=== PATIENT | female | born 1955 | race Caucasian/White ===

== ENCOUNTER 2017-05-12 09:30 | Outpatient (RCR) | payer OTHER, SELFPAY | END 2017-05-17 23:59 | LOC: NS 09:30 | PROVIDERS: Family Provider Family Medicine; PCP Family Medicine | DX: R63.5 Abnormal weight gain (principal); Z71.3 Dietary counseling and surveillance | CPT/HCPCS: 97803 ==

== ENCOUNTER 2017-05-26 10:36 | Outpatient (RCR) | payer OTHER, SELFPAY | END 2017-05-26 10:37 | disposition home or self-care (01) | LOC: NS 10:36 | PROVIDERS: Family Provider Family Medicine; PCP Family Medicine | DX: R63.5 Abnormal weight gain (principal); Z71.3 Dietary counseling and surveillance | CPT/HCPCS: 97803 ==

== ENCOUNTER 2017-09-16 07:23 | Emergency (ER) | payer OTHER, SELFPAY ==
[2017-09-16 07:24] VITALS: BP 140/101; PULSE 117; RESP 20; TEMP 35.8; O2SAT 100; BMI 30.3
[2017-09-16 07:30] VITALS: BP 141/102; PULSE 116; O2SAT 98
[2017-09-16 07:36] VITALS: O2SAT 99
--- NOTE | 2017-09-16 07:53 | RAD_ITS ---
STUDY: X-RAY CHEST REASON FOR EXAM: Female, 62 years old. Shortness of breath. Dyspnea. TECHNIQUE: Single AP portable view of the chest. COMPARISON: None. FINDINGS: There is hyperinflation of the lungs consistent with chronic obstructive lung disease (COPD). There is right basilar mild chronic interstitial thickening. There is no demonstrated pleural abnormality. Normal size heart. Normal mediastinum and nathan. Normal visualized pulmonary arteries. There is atherosclerotic tortuosity of the aortic arch and descending thoracic aorta. Normal visualized ribs, clavicles, and shoulders. There is no demonstrated abnormality of the visualized soft tissue structures of the upper abdomen. RAD/Chest 1 View (Portable) IMPRESSION: COPD changes. Right basilar mild chronic appearing interstitial thickening/infiltrates. Electronically Signed: Joey Jackson MD at 8:21 EDT Tel , Service support ,
[2017-09-16] MEDS: MethylPREDNISolone 125 MG/2 ML Vial IV (08:09)
[2017-09-16] MEDS: 0.9% Normal Saline 1,000 ML 150 ML IV (08:09)
--- NOTE | 2017-09-16 08:13 | ED.DCSUM_ITS ---
- ER Visit Summary Date of Service: 09/16/17 Chief Complaint: Short of breath, sore throat History of Present Illness: The patient is a 62 F who complains of sore throat for the past 3 or 4 days. She has had a lot of drainage in her throat. She is complaining of shortness of breath and cough as well. She does have increased pain when drinking. Patient states she drove herself to urgent care this morning but they were not open so she came to the emergency room. She has not noted fever or chills. Past history significant for hypertension. She is a smoker. Physical Examination: Blood pressure is 141/102, temperature 96.5, heart rate 116, respiratory rate 20, pulse ox 98% on room air. Patient sitting upright in bed. She speaking full sentences. She does have frequent moist cough and is bringing up thick sputum. Head and neck examination reveals TMs to be clear bilaterally. She has mild posterior pharyngeal drainage. Uvula is midline and not enlarged. She does have large bilateral cervical lymphadenopathy. Heart is regular rate and rhythm. Lung sounds are grossly clear. Abdomen is soft nontender. Skin examination reveals no rash or lesions. Test Results: CBC and chemistry studies are unremarkable. Portable chest x-ray shows COPD changes with right basilar chronic interstitial thickening. Emergency Department Course and Treatment: Patient was given a dose IV Solu- Medrol. On repeat evaluation she does report improvement in her symptoms and was able to lie back in the bed. She was then sent for a CT of the neck with IV contrast. This reveals mild diffuse enlargement of the hypopharynx without focal fluid collection. There is mild lymphadenopathy. Differential includes infectious, inflammatory, neoplastic process. On repeat examination patient states she feels much improved. She is able tolerate p.o. fluids. She is able to lean back in the bed without difficulty. She be given a prednisone taper for home along with Augmentin. She is encouraged to return immediately should any worsening of her symptoms. Treatment Plan: [] Disposition: Discharge Impression: Pharyngitis This note was generated with [employer] dictation software. It may contain incorrect words, spelling, and punctuation that were not noted in review of the chart prior to signing ED Disposition - Plan for ED Patient: Chief Complaint: Shortness of Breath Referrals: Nikhil Sullivan MD [Primary Care Provider] -
[2017-09-16 08:23] LABS: Absolute Lymphocyte Count 1.32 X10^3/ul (0.83-4.51); Absolute Neutrophil Count 5.1 X10^3/uL (2.0-7.7); Basophil# 0.01 X10^3/uL; Basophil% 0.1 % (0-1); Eosinophil# 0.06 X10^3/uL; Eosinophils% 0.9 % (0-5); Hemoglobin 12.7 g/dl (12.0-15.0); Lymphocyte # 1.32 X10^3/ul (4.0); Lymphocyte % 19.2 % (19-41); Mean Corp Hgb Conc 33.4 g/gl (32-36); Mean Corpuscular Hgb 30.1 pg (27.0-32.0); Mean Platelet Vol. 10.7 fl (6.2-12.0); Monocyte# 0.41 X10^3/uL; Neutrophil # 5.08 X10^3/uL (2.7-7.7); Neutrophil % 73.8 % (47-70); Platelet Count 171 K/mm3 (150-450); RBC Distribution Width CV 12.9 % (11.6-14.6); RBC Distribution Width SD 42.5 fl (35.1-43.9); Red Blood Count 4.22 M/mm3 (4.2-5.4); White Blood Count 6.9 K/mm3 (4.4-11.0)
[2017-09-16 08:24] LABS: POSITIVE COUNT NO; POSITIVE DIFFERENTIAL NO; POSITIVE MORPHOLOGY NO
[2017-09-16 08:36] LABS: Anion Gap 6 (5-15); BUN 9 mg/dL (7-18); BUN/Creat Ratio 13.4 RATIO (10-20); Calcium,Total 9.6 mg/dL (8.5-10.1); Chloride 108 mmol/L (98-107); Creatinine, Serum 0.67 mg/dL (0.55-1.02); EST Glomerular Filtration Rate 95 mL/min (>60); Est Glom Filt Rate - Afr Amer 115 mL/min (>60); Estimated Creatinine Clearance 90.07 ml/min; Glucose 102 mg/dL (74-106); Potassium 4.1 mmol/L (3.5-5.1); Sodium Level 140 mmol/L (136-145)
--- NOTE | 2017-09-16 09:27 | CT_ITS ---
STUDY: CT SOFT TISSUE NECK WITH CONTRAST REASON FOR EXAM: Female, 62 years old. DIFFICULTY SWALLOWING, SOB, SORE THROAT, HX-HTN. RADIATION DOSAGE (If Supplied By Facility): CTDIvol = ( 19.5 ) mGy, DLP = ( 613.5 ) mGycm TECHNIQUE: The patient was scanned in a multi-detector CT scanner. High resolution transaxial imaging was performed following intravenous administration of 100 ml of Isovue 300 contrast material. Sagittal and coronal images were reconstructed. Individualized dose optimization techniques were used for this CT. COMPARISON: None. FINDINGS: Normal bilateral parotid glands. Normal bilateral it software developer spaces. Normal bilateral parapharyngeal spaces. Normal bilateral carotid spaces. Normal bilateral sublingual and submandibular glands and spaces. Normal visualized nasopharynx. Normal retropharyngeal space. Normal perivertebral space. Normal visualized bilateral faucial tonsils. The visualized tongue, tongue base and oropharynx are normal. There is enlarged bilateral cervical lymph nodes most prominent at the right jugulodigastric region measuring up to 2.1 cm. There is no demonstrated solid or cystic mass lesion. There is no abnormal contrast enhancement. Normal epiglottis, bilateral vallecula. There is mild mild diffuse enlargement of the hypopharynx with enlargement of the aryepiglottic folds and obliteration of the left piriform sinus. The pre-epiglottic and paraglottic adipose spaces are normal. Normal vocal cords, and arytenoid-cricoid articulations. Normal subglottic trachea. Normal bilateral lobes of the thyroid gland. Normal visualized pulmonary apices. Normal visualized paranasal sinuses. Normal visualized cervical spine. CT/Soft Tissue Neck WITH Contrast IMPRESSION: Mild diffuse enlargement of the hypopharynx. No fluid collections. Mild lymphadenopathy. Differential considerations are infectious, inflammatory and neoplastic disease. Electronically Signed: Andre Alexander MD at 10:25 EDT Tel , Service support ,
[2017-09-16 09:50] VITALS: BP 159/95; PULSE 91; RESP 18; O2SAT 98
--- NOTE | 2017-09-16 10:43 | ED.DEP ---
ED Disposition - Plan for ED Patient: Disposition: Home or Assisted Living Chief Complaint: Shortness of Breath Instructions: Self-Care for Sore Throats Prescriptions: Amox/Clavulanate Tablet [Augmentin Tablet] 875 mg PO Q12H #20 tablet Prednisone 10 mg PO DAILY #63 tablet Referrals: Nikhil Sullivan MD [Primary Care Provider] - 1 Week Guilherme Ivey MD [STAFF PHYSICIAN] - As Needed
[2017-09-16 10:58] VITALS: BP 156/79; PULSE 83; RESP 19; O2SAT 99
== END 2017-09-16 10:58 | disposition home or self-care (01) ==
PROVIDERS: Emergency Provider Emergency Medicine; Family Provider Family Medicine; PCP Family Medicine
DX: J02.9 Acute pharyngitis, unspecified (principal); I10 Essential (primary) hypertension; F17.200 Nicotine dependence, unspecified, uncomplicated
CPT/HCPCS: 70491; 71045; 80048; 85025; 96360; 96361; 99284; J7030; Q9967

== ENCOUNTER 2020-12-24 08:48 | Emergency (ER) | payer OTHER, SELFPAY ==
[2020-12-24 08:50] VITALS: BP 140/88; PULSE 62; RESP 18; TEMP 36.6; O2SAT 98; BMI 31.8
--- NOTE | 2020-12-24 09:30 | EDS_ITS ---
HPI History of Present Illness Chief Complaint: Dizziness Informant: patient and EMS Narrative Narrative: 65-year-old female presenting via EMS with a chief complaint of dizziness. Patient states that as soon as she got out of bed this morning she felt that the room was spinning. She states that it made her very nauseous and she was having vomiting. The room spinning sensation get worse that she would move her head from side to side. 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 She got to work and her blood pressure was elevated and a coworker called EMS. Patient states that since she has been in the emergency room she is starting to feel better. She states that the dizziness is no longer comes when she turns her head. The nausea is better. She denies any headache. She did note a pain in her neck. This morning. She has had vertigo in the past but does not recall it being this bad. PFSH [facility] Medical History Hypertension Home Medications diazepam 5 mg PO Q6H PRN #10 tab 12/24/20 [Rx Last Taken Unknown] hydrochlorothiazide 25 mg PO DAILY 12/24/20 [History Last Taken Unknown] lisinopril [Prinivil] 10 mg PO DAILY 12/24/20 [History Last Taken Unknown] ondansetron 4 mg PO Q6H PRN PRN #15 tab 12/24/20 [Rx Last Taken Unknown] Allergy/AdvReac Type Severity Reaction Status Date / Time sulfamethoxazole Allergy Unknown Verified 12/24/20 08:52 [From Bactrim] trimethoprim [From Bactrim] Allergy Unknown Verified 12/24/20 08:52 Social History (Updated 12/24/20 @ 09:[address] Jim Arevalo, DO) Smoking Status: Current every day smoker tobacco type: cigarettes substance use type: does not use ROS ROS ED Constitutional Constitutional ED: Denies chills or weight loss Eyes Eyes: Denies change in vision or diplopia ENT ENT ED: Denies ear pain, rhinorrhea or sore throat Cardiovascular Cardiovascular: Denies chest pain, orthopnea, palpitations or racing heartbeat Respiratory/Chest Respiratory/Chest: Denies cough, dyspnea or orthopnea Gastrointestinal Gastrointestinal: Reports nausea and vomiting; Denies abdominal pain or diarrhea Genitourinary Genitourinary ED: Denies dysuria, hematuria or urinary frequency Musculoskeletal Musculoskeletal: Reports neck pain; Denies arthralgias or myalgias Integumentary Denies abscess or rash Neurologic Neurologic: Reports other Details: Dizziness ; Denies headache(s) or weakness Psychiatric Psychiatric: Denies anxiety, depression, suicidal ideation or suicidal thoughts Endocrine Endocrinology: Denies polydipsia, polyphagia or polyuria Allergic/Immunologic Allergic/Immunologic ED: Denies mouth swelling, tongue swelling or urticaria EXAM Physical Exam Narrative Exam Narrative: Patient lying in darkened room with a towel on eyes. Const Vital Signs: 12/24/20 08:50 12/24/20 09:47 Temperature 97.8 F Temperature Source Temporal Pulse Rate 62 Respiratory Rate 18 Respiratory Effort Normal Non-Labored Respiratory Pattern Normal Blood Pressure 140/88 H Blood Pressure Mean 105 Pulse Ox 98 Oxygen Delivery Method Room Air Positive well nourished, well developed and obese General Appearance ED: well developed Nutritional Appearance: obese HEENT Reports normocephalic, head/scalp atraumatic and moist mucous membranes Eyes PERRL and EOMs intact bilaterally Eyes Narrative: No nystagmus is appreciated Neck no lymphadenopathy, supple and no JVD Resp normal respiratory effort and clear to auscultation bilaterally Cardio regular rate, regular rhythm and no murmurs GI normal to inspection, nondistended, normoactive bowel sounds and non-tender Palpation: soft Back/Spine no CVA tenderness and normal ROM Extremity normal to inspection General Extremety ED: Negative for edema General Extremity: Negative for edema Neuro oriented x3 and CN's II-XII intact bilaterally Neuro Narrative: Negative Yeison-Hallpike Sensorium / Orientation: alert Motor Exam: strength 5/5 throughout Psych mental status grossly normal Mood & Affect: Negative for depressed or tearful Skin no rashes or lesions noted and no wounds MDM MDM MDM Narrative Medical decision making narrative: Basic labs obtained showed a glucose of 107. Noted white count 4.1. Patient received Valium and Zofran. Repeat examination shows her to be sitting upright conversing with her . When to give her instructions on repositioning techniques which she is used in the past. Also write for a small amount of Valium and Zofran at home. Lab Data Attestation: I reviewed the patient's lab results. Labs: Laboratory Results - last 24 hr 12/24/20 12/24/20 09:50 09:50 WBC 4.1 L RBC 4.30 Hgb 13.1 Hct 39.3 MCV 91.4 MCH 30.5 MCHC 33.3 RDW Std Deviation 42.1 RDW Coeff of Arden 12.6 Plt Count 157 MPV 11.1 Immature Gran % (Auto) 0.200 Neut % (Auto) 71.2 H Lymph % (Auto) 20.5 Centre % (Auto) 6.2 Eos % (Auto) 1.7 Baso % (Auto) 0.2 Absolute Neuts (auto) 2.9 Absolute Lymphs (auto) 0.83 Nucleated RBC % 0 Sodium 136 Potassium 4.1 Chloride 103 Carbon Dioxide 28.0 Anion Gap 5 BUN 18 Creatinine 0.66 Estim Creat Clear Calc 88.01 Est GFR (MDRD) Af Amer 116 Est GFR (MDRD) Non-Af 96 BUN/Creatinine Ratio 27.3 H Glucose 107 H Calcium 9.3 Discharge Plan Triage Chief Complaint: Dizziness ED Provider: Jim Arevalo Dx/Rx/DC Orders Clinical Impression: Vertigo Instructions: ED BPV Vertigo Prescriptions: New ondansetron [ondansetron] 4 MG tablet 4 mg PO Q6H PRN PRN (Reason: Nausea) Qty: 15 RF: 0 diazepam [diazepam] 5 MG tablet 5 mg PO Q6H PRN (Reason: vertigo) Qty: 10 RF: 0 No Action lisinopril [Prinivil] 10 mg Tablet 10 mg PO DAILY RF: 0 hydrochlorothiazide 25 mg Tablet 25 mg PO DAILY RF: 0 Primary Care Provider: Tres Mann Referrals: Tres Mann MD [Primary Care Provider] - As Needed Tres Narayan MD [STAFF PHYSICIAN] - As Needed (for ENT) Disposition Disposition: Home, Self Care
[2020-12-24] MEDS: diazePAM 5 MG Tablet PO (09:44)
[2020-12-24] MEDS: Ondansetron 4 MG/2 ML Vial IV (09:45)
[2020-12-24] MEDS: 0.9% Normal Saline 1,000 ML 1000 ML IV (09:45)
[2020-12-24 09:58] LABS: Absolute Lymphocyte Count 0.83 X10^3/uL (0.83-4.51); Absolute Neutrophil Count 2.9 X10^3/uL (2.0-7.7); Basophil# 0.01 X10^3/uL; Basophil% 0.2 % (0-1); Eosinophil# 0.07 X10^3/uL; Eosinophils% 1.7 % (0-5); Hematocrit 39.3 % (37-47); Hemoglobin 13.1 g/dL (12.0-15.0); Lymphocyte # 0.83 X10^3/ul (0.83-4.51); Lymphocyte % 20.5 % (19-41); Mean Corp Hgb Conc 33.3 g/dL (32-36); Mean Corpuscular Hgb 30.5 pg (27.0-32.0); Mean Corpuscular Volume 91.4 fL (81-99); Mean Platelet Vol. 11.1 fl (6.2-12.0); Monocyte# 0.25 X10^3/uL; Monocyte% 6.2 % (0-10); NRBC Flagged by Analyzer 0 % (0-5); Neutrophil # 2.88 X10^3/uL (2.7-7.7); Neutrophil % 71.2 % (47-70); Platelet Count 157 K/mm3 (150-450); RBC Distribution Width CV 12.6 % (11.6-14.6); RBC Distribution Width SD 42.1 fl (35.1-43.9); White Blood Count 4.1 K/mm3 (4.4-11.0)
[2020-12-24 10:16] LABS: Anion Gap 5 (5-15); BUN 18 mg/dL (7-18); BUN/Creat Ratio 27.3 RATIO (10-20); Calcium,Total 9.3 mg/dL (8.5-10.1); Chloride 103 mmol/L (98-107); Creatinine, Serum 0.66 mg/dL (0.55-1.02); EST Glomerular Filtration Rate 96 mL/min (>60); Est Glom Filt Rate - Afr Amer 116 mL/min (>60); Estimated Creatinine Clearance 88.01 ml/min; Glucose 107 mg/dL (74-106); Potassium 4.1 mmol/L (3.5-5.1); Sodium Level 136 mmol/L (136-145)
[2020-12-24 10:50] VITALS: BP 141/92; PULSE 76; RESP 15; O2SAT 97
[2020-12-24 11:17] VITALS: BP 136/81; PULSE 65; RESP 16; O2SAT 98
== END 2020-12-24 11:18 | disposition home or self-care (01) ==
PROVIDERS: Emergency Provider Emergency Medicine; PCP Family Medicine
DX: R42 Dizziness and giddiness (principal); R11.2 Nausea with vomiting, unspecified; M54.2 Cervicalgia; I10 Essential (primary) hypertension; E66.9 Obesity, unspecified; F17.210 Nicotine dependence, cigarettes, uncomplicated; Z79.899 Other long term (current) drug therapy
CPT/HCPCS: 80048; 85025; 96361; 96374; 99285; J7030; A4216; J2405

== ENCOUNTER → 2024-05-01 | Outpatient (CLI) | payer MEDICARE, SELFPAY ==
--- NOTE | 2024-05-01 06:56 | ECHOD_ITS ---
Reason For Study Reason For Study: Dyspnea/SOB Procedure This was a 2D Doppler, Color Flow transthoracic echocardiogram. Exam performed in department. Left Ventricle Normal LV size. Mild concentric left ventricular hypertrophy. The left ventricular ejection fraction is 65 %. Stage 1 diastolic dysfunction. Right Ventricle Normal right ventricle. Atria The left and right atria are normal. Bubble contrast study is negative for PFO/ASD. Mitral Valve Mild (1+) mitral valve insufficiency. Tricuspid Valve Trivial tricuspid valve insufficiency. Normal pulmonary artery pressure. Aortic Valve Trisinus/trileaflet aortic valve. Trivial aortic valve insufficiency. Pulmonic Valve The pulmonic valve is not well visualized. Great Vessels Moderately dilated aortic root (4.5 cm). Pericardium/Pleural No pericardial effusion. Medication 22 gauge I.V. with prn adaptor inserted into right arm. Performed a rapid injection of agitated mix of 9 cc saline and 1cc air to assess for atrial septal defect. MMode/2D Measurements & Calculations LVIDd: 4.4 cm IVSd: 1.2 cm LVOT diam: 2.0 cm LVIDs: 3.1 cm LVPWd: 0.89 cm RVDd: 3.2 cm FS: 29.0 % LVOT area: 3.0 cm2 Ao root diam: 4.5 cm asc Aorta Diam: 4.5 cm LAV(MOD- bp): 38.4 ml LAV(MOD- bp) Indexed: 18.6 ml/m2 LAV(MOD- sp2): 40.2 ml LAV(MOD- sp4): 35.1 ml SV(MOD-sp4): 61.3 ml SV(sp4- el): 65.0 ml LVAd ap4: 29.2 cm2 LVLd ap4: 7.7 cm SI(MOD-sp4): 29.8 ml/m2 EDV(MOD-sp4): 90.6 ml EDV(sp4-el): 94.7 ml LVAs ap4: 14.5 cm2 LVLs ap4: 6.0 cm ESV(MOD-sp4): 29.3 ml ESV(sp4-el): 29.7 ml EF(MOD-sp4): 67.7 % EF(sp4-el): 68.7 % Ao sinus diam: 3.[address] Junction: 3.5 cm LA A4 area: 14.0 cm2 LA dimension(2D): 3.3 cm TAPSE: 1.8 cm RA A4 area: 14.4 cm2 Time Measurements MV dec time: 0.26 sec Doppler Measurements & Calculations MV E max agustin: 61.4 cm/sec Lat Peak E' Agustin: 10.1 cm/sec Med Peak E' Agustin: 7.7 cm/sec MV A max agustin: 92.0 cm/sec E/E' lat: 6.1 E/E' med: 7.9 MV E/A: 0.67 MV V2 max: 98.0 cm/sec MV P1/2t max agustin: 77.6 cm/sec Ao V2 max: 143.7 cm/sec MV max P.8 mmHg MV P1/2t: 89.0 msec Ao max P.3 mmHg MV V2 mean: 55.8 cm/sec MV dec slope: 255.4 cm/sec2 Ao V2 mean: 95.6 cm/sec MV mean P.4 mmHg Ao mean P.2 mmHg MV V2 VTI: 27.3 cm MVA(P1/2t): 2.5 cm2 Ao V2 VTI: 31.6 cm MVA(VTI): 2.8 cm2 AV (velocity ratio): 0.80 KIMBERLY(I,D): 2.4 cm2 KIMBERLY(V,D): 2.5 cm2 LV V1 max: 119.1 cm/sec MR max agustin: 570.7 cm/sec SV(LVOT): 75.6 ml LV V1 max P.7 mmHg MR max P.3 mmHg LV V1 mean P.1 mmHg LV V1 mean: 80.1 cm/sec LV V1 VTI: 25.3 cm PA V2 max: 88.7 cm/sec TR max agustin: 211.6 cm/sec TR max P.9 mmHg ECHO/Echo Complete Interpretation Summary Mild concentric left ventricular hypertrophy. The left ventricular ejection fraction is 65 %. Stage 1 diastolic dysfunction. Mild (1+) mitral valve insufficiency. Moderately dilated aortic root (4.5 cm) Bubble contrast study is negative for PFO/ASD. Ordering Physician: Surinder Monroy Referring Physician: Surinder Monroy Performed By: Orestes Van [facility]
--- NOTE | 2024-05-01 12:29 | STRESSREP_ITS ---
Stress Test Report Date: 05/01/2024 Procedure: Exercise tolerance test/imaging study Indications: Dyspnea on exertion Consent: Per the patient Procedure: The patient exercised on a Collin protocol for 5 minutes and 11 seconds achieving a peak heart rate of 146 bpm (94% predicted maximal heart rate) with a peak blood pressure 150/90 mmHg and a peak MET capacity of 7.0 METs. The baseline ECG demonstrated sinus rhythm. The peak exercise ECG demonstrated sinus tachycardia with no ischemic changes. Motion artifact reduces sensitivity. Occasional PVCs noted in recovery. The functional capacity was considered average. There was no complaint of chest discomfort during exercise or recovery. The examination was discontinued secondary to target heart rate being achieved and dyspnea. The patient was injected with 14.0 mCi of technetium 99m Cardiolite and subsequently rest SPECT Cardiolite nuclear imaging was obtained in the horizontal long, vertical long, and short axis views. Post-exercise, the patient was injected with 42.3 mCi of technetium 99m Cardiolite and subsequently stress SPECT Cardiolite nuclear imaging was obtained in the horizontal long, vertical long, and short axis views. A gated Cardiolite study at peak stress was obtained. Rest and stress SPECT Cardiolite nuclear imaging status post realignment, normalization, and attenuation correction, demonstrates the appearance of relative uniform tracer uptake and myocardial perfusion appearing within normal limits. There is end systolic thickening and brightening. The gated Cardiolite study demonstrates myocardial thickening and inward wall motion. The reported LVEF is 79%. Impression: 1. Technically adequate (percent predicted maximal heart rate greater than 85%) exercise tolerance test 2. Peak exercise ECG with no ischemic changes. 3. Occasional PVC noted in recovery 4. Rest and stress SPECT Cardiolite nuclear imaging demonstrate relative uniform tracer uptake and myocardial perfusion appearing within normal limits. 5. The gated Cardiolite study reports an LVEF of 79%. This note was generated with [employer] software. It may contain incorrect words, spelling, and punctuation that were not noted in checking the note before signing.
== END | disposition home or self-care (01) ==
PROVIDERS: PCP Family Medicine; Referring Provider Internal Medicine Cardiovascular Disease; Visit Provider Internal Medicine Cardiovascular Disease
DX: R06.09 Other forms of dyspnea (principal)
CPT/HCPCS: 78452; 93017; 93306; A9500; A4216

== ENCOUNTER → 2024-09-19 | Outpatient (CLI) | payer MEDICARE, SELFPAY ==
--- NOTE | 2024-09-19 13:30 | CT_ITS ---
PROCEDURE: CTA CHEST W/WO CONTRAST 09/19/2024 REASON FOR EXAM: THORACIC AORTIC ANEURYSM TECHNIQUE: CTA CHEST W/WO CONTRAST Multiplanar Sagittal and Coronal images were obtained. CONTRAST: Isovue 370 VOLUME: 100 mL One or more dose reduction techniques were used (e.g., Automated exposure control, adjustment of the mA and/or kV according to patient size, use of iterative reconstruction technique). RADIATION DOSE SUMMARY: CTDlvol: 21 mGy DLP: 519 mGycm COMPARISON: No FINDINGS: Unremarkable base of neck and axilla. Thoracic spine scoliosis and degeneration. Normal esophagus. Normal heart size. Moderate aortic tortuosity. Three-vessel arch. Minimal calcified plaque. The ascending aorta is dilated at 4.2 x 4.3 cm maximum cross-section. The thoracic aorta is otherwise nondilated. No central pulmonary embolism. No acute chest wall findings. No acute upper abdominal findings. Central airways are patent. Well inflated lungs. No consolidation, effusion, or pneumothorax. On the left, no suspicious nodules. On the right, series 2 image 96, 6 mm pleural-based noncalcified lower lobe nodular density. CT/CTA Chest W/WO Contrast IMPRESSION: Dilated ascending aorta, 4.3 cm maximum cross-section. 6 mm noncalcified right lower lobe nodule, not highly suspicious. If this is a high-risk patient, recommend six-month follow up imaging with low-dose chest CT. Reading Location: [place] [id number]
--- OUTSIDE RECORDS SUMMARY | 2024-09-19 22:57 | XMS RPT_ITS | CCD ---
Author Organization [facility] Care Team Providers Care On Air Personality Name Role Phone Carrington Mann MD Primary Care Provider Carrington Mann MD Primary Care Provider Podlogar TELECOMMUNICATIONS REPAIRER.DESIREE, Мария Unavailable Nate Cavazos MD Unavailable Rocío TELECOMMUNICATIONS REPAIRER.Olga RAMÍREZ Unavailable CARRINGTON MANN Referring Unavailab CARRINGTON Beltre Primary Care Unavailab CARRINGTON Beltre Referring Unavailab CARRINGTON Beltre Primary Care Unavailab CARRINGTON Beltre Primary Care Unavailab CARRINGTON Beltre Attending Unavailab CARRINGTON Beltre Attending Unavailab CARRINGTON Beltre Primary Care Unavailab CARRINGTON Beltre Attending Unavailab CARRINGTON Beltre Primary Care Unavailab CARRINGTON Beltre Referring Unavailab CARRINGTON Beltre Primary Care Unavailab CARRINGTON Beltre Primary Care Unavailab jonathan DIXON, BELL Referring Unavailable CARRINGTON MANN Referring Unavailab CARRINGTON Beltre Primary Care Unavailab CARRINGTON Beltre Primary Care Unavailab jonathan DIXON, BELL Referring Unavailable CARRINGTON MANN Referring Unavailab le CARRINGTON MANN Primary Care Unavailab le CARRINGTON MANN Referring Unavailab le CARRINGTON MANN Primary Care Unavailab le DESTINY, BELL Attending Unavailable CARRINGTON MANN Primary Care Unavailab CARRINGTON Beltre Attending Unavailab jonathan Mann MD, Dr. Joshua Primary Care Provider Dr. Tres Mann MD Referring Provider Raul SYSTEM DESIGNER-CGeri Attending Provider [phone] Tres Mann Primary Care Unavailable Porfirio, Surinder Consulting Unavailable Porfirio, Surinder Attending Unavailable Porfirio, Surinder Referring Unavailable Kwaku Manne Primary Care Unavailable Porfirio, Surinder Attending Unavailable Porfirio, Surinder Referring Unavailable Kwaku Manne Primary Care Unavailable Renata SYSTEM DESIGNER, Guanaco Grimaldo Attending Unavailable Renata SYSTEM DESIGNER, Guanaco Grimaldo Referring Unavailable Geri Carter NP Attending Unavailable Tres Mann Primary Care Unavailable Tres Mann Referring Unavailable Tres Mann Primary Care Unavailable Tres Mann Referring Unavailable Porfirio, Surinder Attending Unavailable Allergies Allergy Classification Reported Allergen(s) Allergy Type Date of Onset Reaction(s) Facility (20 sources) cashew nut allergenic extract; Translations: [CASHEW NUT] Drug Allergy 08-22-[address] [facility] (20 sources) Penicillins; Translations: [PENICILLINS] Propensity to adverse reactions 03-16-[address] [facility] Work Phone: (20 sources) predniSONE; Translations: [PREDNISONE] Drug Allergy 01-19-20 [address] [facility] Work Phone: (20 sources) Sulfamethoxazole / Trimethoprim; Translations: [SULFAMETHOXAZOLE-TR IMETHOPRIM] Drug Allergy 01-19-20 [address] [facility] Work Phone: (18 sources) atorvastatin; Translations: [ATORVASTATIN] Drug Allergy 01-11-20 [address] [facility] Work Phone: (1 source) Penicillins Propensity to adverse reactions 03-16-[address] [facility] Work Phone: (1 source) Penicillins Propensity to adverse reactions 09-17-19 25 Diarrhea [facility] (1 source) Sulfamethoxazole Drug Allergy 09-17-19 25 Unknown [facility] (1 source) Trimethoprim Drug Allergy 09-17-19 25 Unknown [facility] (1 source) atorvastatin Drug Allergy 09-17-19 25 [facility] (1 source) cashew nut allergenic extract Drug Allergy 09-17-19 [facility] (1 source) Penicillins Drug allergy (disorder) 09-17-19 [facility] (1 source) predniSONE Drug Allergy 09-17-19 [facility] (1 source) Sulfamethoxazole Drug Allergy 09-17-19 [facility] (1 source) Trimethoprim Drug Allergy 09-17-19 [facility] Medications Current Medications Medication Drug Class(es) Dates Sig (Normalized) Sig (Original) aspirin 81 mg delayed release oral tablet (2 sources) Platelet Aggregation Inhibitor, Nonsteroidal Anti-inflammator y Drug Start: 5 take 1 tablet by mouth once daily Aspirin 81 mg tablet,delayed release (DR/EC) Active 81 mg PO daily 90 April 15, 2024 1:00am hydroCHLOROthiazide 25 mg oral tablet (20 sources) Thiazide Diuretic Start: End: 5 take 1 tablet by mouth once daily hydroCHLOROthiazide 25 mg tablet Indications: Essential hypertension Take 1 tablet by mouth once daily. 90 tablet 1 07/12/2024 01/08/2025 Active Start: 12-24-2020 End: 04-12-2022 take 1 tablet by mouth once daily hydroCHLOROthiazide (HYDRODIURIL, ESIDRIX) 25 mg tablet Indications: Essential hypertension Take 1 tablet by mouth once daily. 90 tablet 1 10/14/2021 04/12/2022 Active Comment on above: Take 1 tablet by hannah th once daily. lisinopril 10 mg oral tablet (20 sources) Angiotensin Converting Enzyme Inhibitor Start: End: 5 take 1 tablet by mouth once daily lisinopril (ZESTRIL) 10 mg tablet Indications: Essential hypertension Take 1 tablet by mouth once daily. 90 tablet 1 07/12/2024 01/08/2025 Active Start: 12-24-2020 End: 04-12-2022 take 1 tablet by mouth once daily lisinopril (ZESTRIL, PRINIVIL) 10 mg tablet Indications: Essential hypertension Take 1 tablet by mouth once daily. 90 tablet 1 10/14/2021 04/12/2022 Active Comment on above: Take 1 tablet by hannah th once daily. 24 hr metoprolol succinate 25 mg extended release oral tablet (2 sources) beta-Adrenergic Kirt Start: 5 take 1 tablet by mouth once daily Metoprolol Succinate 25 mg tablet extended release 24 hr Active 25 mg PO daily 90 3 April 15, 2024 1:00am predniSONE 10 mg oral tablet (1 source) Start: 4 End: predniSONE (DELTASONE) 10 mg tablet Take 4 tabs daily x5 days, then 2 tabs daily for 5 days, then 1 tab daily for 5 days. 35 tablet 11/06/2023 11/21/2023 Active rosuvastatin calcium 10 mg oral tablet (4 sources) HMG-CoA Reductase Inhibitor Start: 5 End: 5 take 1 tablet by mouth once daily Rosuvastatin (Crestor) 10 mg tablet Active 10 mg PO daily September 16, 2024 12:00am Completed/Discontinued Medications Medication Drug Class(es) Dates Sig (Normalized) Sig (Original) atorvastatin 20 mg oral tablet (12 sources) HMG-CoA Reductase Inhibitor Start: 10-19-2021 End: 01-11-2024 take 1 tablet by mouth once daily at bedtime for hyperlipidemia atorvastatin (LIPITOR) 20 mg tablet Indications: Hyperlipidemia, mixed Take 1 tablet by mouth daily at bedtime. For cholesterol. 90 tablet 1 12/28/2022 01/11/2024 Discontinued (Course of therapy completed) Comment on above: Take 1 tablet by hannah th daily at bedtime. For cholesterol. diazePAM 5 mg oral tablet (1 source) Benzodiazepine Start: 12-24-2020 End: 04-15-2024 take 1 tablet by mouth every six hours as needed Diazepam 5 MG tablet Discontinued 5 mg PO EVERY 6 HOURS as needed for vertigo 10 0 December 24, 2020 10:52am April 15, 2024 11:14am 24 hr nicotine 0.875 mg/hr transdermal system (20 sources) Cholinergic Nicotinic Agonist Start: 01-11-2024 End: 08-23-2024 apply 1 dose transdermal route every twenty-four hours Nicotine (Nicoderm Cq) 14 mg/24 hr patch 24 hour Discontinued 1 NMA TD daily April 08, 2024 1:00am April 15, 2024 11:14am Start: 01-11-2024 End: 07-12-2024 apply 1 dose transdermal route every twenty-four hours Nicotine (Nicoderm Cq) 21 mg/24 hr patch 24 hour Discontinued 1 NMA TD daily April 08, 2024 1:00am April 15, 2024 11:14am Start: 01-11-2024 End: 08-11-2024 apply 1 dose transdermal route every twenty-four hours Nicotine (Nicoderm Cq) 7 mg/24 hr patch 24 hour Discontinued 1 NMA TD Q24H April 08, 2024 1:00am April 15, 2024 11:14am Omeprazole (1 source) Proton Pump Inhibitor End: 10-14-2021 OMEPRAZOLE (PRILOSEC ORAL) Take by mouth. 0 10/14/2021 Discontinued Comment on above: Take by mouth. ondansetron 4 mg disintegrating oral tablet (1 source) Serotonin-3 Receptor Antagonist Start: 12-24-2020 End: 04-08-2024 take 1 tablet by mouth every six hours as needed for nausea Ondansetron 4 MG tablet Discontinued 4 mg PO EVERY 6 HOURS NEEDED as needed for Nausea December 24, 2020 10:50am April 08, 2024 11:59am Problems Active Problems Problem Classification Problem Date Documented Date Episodic/Chronic Administrative/social admission (2 sources) Advance directive discussed with patient; Translations: [Other specified counseling] Onset: 07-12-2024 07-12-2024 Episodic Allergic reactions (1 source) Contact dermatitis due to poison rosa; Translations: [Allergic contact dermatitis due to plants, except food] 11-06-2023 Episodic Aortic; peripheral; and visceral artery aneurysms (2 sources) Aneurysm of thoracic aorta; Translations: [Thoracic aortic aneurysm (TAA)] 04-15-2024 Chronic Comment on above: CT of chest showing thoracic aorta measuring at 4.5 cm Blindness and vision defects (2 sources) Reduced visual acuity; Translations: [Unspecified visual loss] Onset: 07-12-2024 07-12-2024 Chronic Cardiac and circulatory congenital anomalies (1 source) Ascending aorta abnormality; 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] 03-07-2024 Chronic Coagulation and hemorrhagic disorders (20 sources) Platelet count below reference range; Translations: [Thrombocytopenia, unspecified] Onset: 09-13-2006 09-13-2006 Chronic Conditions associated with dizziness or vertigo (20 sources) Benign paroxysmal positional vertigo; Translations: [Benign paroxysmal vertigo, bilateral] Onset: 01-30-2020 01-30-2020 Episodic Disorders of lipid metabolism (20 sources) Mixed hyperlipidemia; Translations: [Mixed hyperlipidemia] Onset: 01-11-2024 Chronic Esophageal disorders (20 sources) Gastroesophageal reflux disease; Translations: [Gastro-esophageal reflux disease without esophagitis] Onset: 09-13-2006 Chronic Essential hypertension (20 sources) Essential hypertension; Translations: [Essential (primary) hypertension] Onset: 01-11-2024 Chronic Other lower respiratory disease (2 sources) Persistent cough; Translations: [Persistent cough for 3 weeks or longer] 01-18-2024 Episodic Other lower respiratory disease (2 sources) Dyspnea; Translations: [Shortness of breath] 02-26-2024 Episodic Other lower respiratory disease (2 sources) Dyspnea on exertion; Translations: [Other forms of dyspnea] 04-15-2024 Episodic Other nervous system disorders (20 sources) Carpal tunnel syndrome of right wrist; Translations: [Carpal tunnel syndrome, right upper limb] Onset: 01-19-2016 01-19-2016 Chronic Other nutritional; endocrine; and metabolic disorders (20 sources) Obese class I; Translations: [Obesity, unspecified] 04-24-2019 Chronic Other nutritional; endocrine; and metabolic disorders (1 source) Obesity; Translations: [Obesity (BMI 30.0-34.9)] Onset: 04-24-2019 Chronic Other nutritional; endocrine; and metabolic disorders (1 source) Body mass index 25-29 - overweight; Translations: [Overweight] Episodic Peripheral and visceral atherosclerosis (3 sources) Arteriosclerotic vascular disease; Translations: [Unspecified atherosclerosis] Onset: 04-15-2024 04-15-2024 Chronic Residual codes; unclassified (20 sources) Tobacco use and exposure - finding; Translations: [Tobacco use] Episodic Residual codes; unclassified (2 sources) Postmenopausal state; Translations: [Asymptomatic menopausal state] 01-11-2024 Episodic Residual codes; unclassified (3 sources) Tobacco use; Translations: [Tobacco use] Onset: 04-24-2019 Episodic Screening and history of mental health and substance abuse codes (1 source) Encounter for screening for depression; Translations: [Screening for depression] Onset: 07-12-2024 Episodic Substance-related disorders (4 sources) Nicotine dependence; Translations: [Nicotine dependence, unspecified, uncomplicated] Onset: 04-15-2024 04-15-2024 Chronic Unclassified (1 source) Persistent cough for 3 weeks or longer; Translations: [Persistent cough for 3 weeks or longer] Onset: 01-11-2024 Unclassified (2 sources) Thoracic aortic aneurysm, without rupture, unspecified; Translations: [Thoracic aortic aneurysm, without rupture, unspecified] Onset: 04-15-2024 Unclassified (1 source) Obesity, class 1; Translations: [Obesity, class 1] Onset: 09-16-2024 Past or Other Problems Problem Classification Problem Date Documented Date Episodic/Chronic Other connective tissue disease (20 sources) Triggering of digit; Translations: [Trigger finger, right middle finger] Onset: 01-19-2016 01-19-2016 Episodic Other lower respiratory disease (1 source) Shortness of breath; Translations: [Shortness of breath] Onset: 02-26-2024 Episodic Other lower respiratory disease (2 sources) Other forms of dyspnea; Translations: [Other forms of dyspnea] Onset: 05-15-2024 Episodic Other screening for suspected conditions (not mental disorders or infectious disease) (11 sources) Patient encounter status; Translations: [Encounter for screening mammogram for malignant neoplasm of breast] Onset: 01-19-2024 Episodic Residual codes; unclassified (20 sources) Menopause present; Translations: [Asymptomatic menopausal state] Onset: 08-10-2009 08-10-2009 Episodic Residual codes; unclassified (20 sources) Family history of polyp of colon; Translations: [Family history of colonic polyps] Onset: 08-10-2009 08-10-2009 Episodic Residual codes; unclassified (1 source) Asymptomatic menopausal state; Translations: [Asymptomatic postmenopausal status] Onset: 01-11-2024 Episodic Results Test Name Value Interpretation Reference Range Facility Cardiology Visit Reporton Cardiology Visit Report [facility] [address] [place], [place] [address] OFFICE VISIT Date of Service: 09/16/24 MR#: [id number] Acct: [id number] Name: MISSY RICKS Rep #: [id number] : 1955 Provider: TIKA cisse Age/Sex: 69/F Location: [facility] Status: Signed HPI HPI History of Present Illness Details: This is a 69-year-old lady who presents today for cardiovascular follow-up visit. She has a past medical history significant for hypertension, nicotine dependence and dyslipidemia. Recently she has had a surveillance CT scan of her chest done. It showed ectasia of the aorta measuring 4.5 cm as an incidental finding. Subsequently she has been referred to us for evaluation and management. From a cardiac standpoint, the patient is doing well. She denies any palpitations, chest pain, pressure or heaviness. She does acknowledge SOB with climbing stairs. She denies Orthopnea, and PND. She does not have bleeding issues; no blood in urine, stool, or nosebleeds. She does acknowledge a decrease in energy level. She denies myalgias, or claudication. She does not have edema, or sudden weight gain. She does acknowledge occasional dizziness/lightheadednes s. She denies syncopal or near syncopal episodes, and headaches. Intake Vital Signs 04/15/24 08:31 09/16/24 11:04 Height 5 ft 8 in 5 ft 8 in Weight: 202 lb BMI 30.7 BP 133/92 H Blood Pressure Location Lt brachial Position Sitting Respiration 18 Pulse 90 Pulse Source Monitor Pulse Oximetry (%) 97 Intake Visit Reasons: 6 M FU Self Propelled Hot Mix Roller Operator Required: No Is patient in pain?: No Allergies cashew nut Allergy (Mild, Verified 09/16/24 11:14) Rash sulfamethoxazole (From Bactrim) Allergy (Verified 09/16/24 11:14) Unknown trimethoprim (From Bactrim) Allergy (Verified 09/16/24 11:14) Unknown atorvastatin (From Lipitor) Adverse Reaction (Mild, Verified 09/16/24 11:14) NEEDS FOLLOW-UP Penicillins Adverse Reaction (Mild, Verified 09/16/24 11:14) Diarrhea prednisone Adverse Reaction (Mild, Verified 09/16/24 11:14) Agitation, nervousness Medications ???Medication ???Instructions ???Recorded ???Confirmed ???Type hydrochlorothiazide 25 mg tablet 25 mg PO DAILY 12/24/20 09/16/24 H istory lisinopril 10 mg tablet 10 mg PO DAILY 12/24/20 09/16/24 H istory aspirin 81 mg tablet,delayed 81 mg PO QDAY #90 tabs 04/15/24 Rx release metoprolol succinate 25 mg 25 mg PO QDAY #90 tabs 04/15/24 Rx tablet,extended release 24 hr rosuvastatin 10 mg tablet (Crestor) 10 mg PO QDAY 09/16/24 09/16/24 History Have you fallen in the past year?: No Nurse's Note: patient on a cholesterol medication but does not know name of medication. [facility] Medical History Tobacco use History of uterine fibroid Obesity (BMI 30.0-34.9) Mixed hyperlipidemia GERD (gastroesophageal reflux disease) Dysplasia of cervix, unspecified BPPV (benign paroxysmal positional vertigo) Hypertension Family History Mother Diabetes Hypertension Father Hypertension Parkinsons disease Alzheimers disease Brother Hypertension Colon polyps Grandmother Diabetes Sister Breast cancer Social History Smoking Status: Current every day smoker tobacco type: cigarettes Tobacco: How many years used: 35 Electronic Cigarette Use: not used alcohol intake: never substance use type: does not use ROS Const Const: Positive for fatigue; Negative for weakness, headache(s) or frequent falls Eyes Eyes: Negative for blurry vision ENT ENT: Positive for dizziness; Negative for headache(s) or Nosebleed/epistaxis Cardio Chest Pain: No Palpitations: No Edema: None Muscle aches with walking: None Resp Respiratory: Positive for SOB with activity; Negative for SOB at rest or SOB orthopnea SOB lying down GI GI: Negative nausea, vomiting, heartburn, bright, red blood in stools or black,tarry stools : Negative for hematuria Neuro Neuro: Positive for dizziness and lightheadedness; Negative for near syncope, syncope, frequent falls, headache(s), weakness or blurry vision Endo Endo: Positive for fatigue Cardiology Exam Const Appearance: cooperative, comfortable, no acute distress and anxious Nutritional Appearance: well nourished and obese Orientation: alert and oriented x3 Head Head: normal to inspection Ears: hearing grossly normal bilaterally Nose: external nose normal Face and Sinus: face symmetric Eyes General: appearance normal, both eyes and all related structures Eyelids: eyelids normal Conjunctivae: conjunctivae normal Pupils: PERRL and pupil size EOM: EOM inta (more content not included)... Normal [facility] CNOVon 07-12-2024 CNOV Office Visit (FAMPWS ) -------- MISSY RICKS ([id number]) 1955 F Date Time Provider Department 07/12/24 9:20 AM CARRINGTON MANN [facility] During your visit today, we recorded the following information about you: Pulse Respiration Blood pressure 70/minute 16/minute 118/70 Carrington Mann MD 07/16/2024 7:49 AM Signed Missy Javed Rambo is a 68 year old female here for a Medicare wellness visit. Patient notes that she started smoking again about 3 months ago. Up to 1/2 pack per day. Would like help with smoking cessation and would like rx for patches. Has order for repeat lipid panel. Taking crestor without side effects. Medicare Health Risk Assessment General Health Good Exercise: Minutes/Day 50 min Exercise: Days/Week 3 days Alcohol: Daily Use Never Alcohol: Drinks/Day Patient does not drink Alcohol: 6 or more drinks Never Feel off balance No Concerns: Teeth/Dentures No Concerns: Sexual function No Troubled by feelings None of the above Frequency: Eating healthy diet Nearly every day ADLs requiring help None of the above Safety precautions in home/vehicle Yes Smoke, vape, chews tobacco Yes, and I might quit Difficulty hearing No Difficulty seeing No Current Providers Specialists: I have reviewed specialist-related care of the patient in the medical record. Current care team: Patient Care Team: Carrington Mann MD as PCP - General (Family Medicine) EchologarМария APRN.DESIREE as Library Assistant (Family Medicine) Nate Cavazos MD (Cardiology) Olga Mijares APRN.CNP as Library Assistant (Family Medicine) Outside specialists seen: [facility] cardiology, Optho-Dr. Kate Medical/Family history review Reviewed and updated problem list, medical/surgical/family/ social history, medications, and allergies. Opioid use review Opioid Medications (last 90 days) No data to display Anxiety/Depression screening (Lower risk for anxiety) Recommendation: no further intervention at this time Cognitive screening Mini Cog Score: 5 Cognitive screening reviewed and No further action needed (score 3-5). Functional Observation Was the patient's Timed Up AND Go test unsteady or >= 12 seconds? No Advance Care Planning Patient did not wish or was not able to name a surrogate decision maker or provide an advance care plan FULL CODE. Measurements BP 118/70 Pulse 70 Resp 16 LMP 12/11/2006 SpO2 96% Vision Screening: Right: Left: Both: Latest Ref Rn 01/11/2024 WBC 3.70 - 11.00 k/uL 4.61 RBC 3.90 - 5.20 m/uL 4.12 Hemoglobin 11.5 - 15.5 g/dL 12.5 Hematocrit 36.0 - 46.0 % 38.3 MCV 80.0 - 100.0 fL 93.0 MCH 26.0 - 34.0 pg 30.3 MCHC 30.5 - 36.0 g/dL 32.6 RDW-CV 11.5 - 15.0 % 12.7 Platelet Count 150 - 400 k/uL 194 MPV 9.0 - 12.7 fL 11.2 Neut% % 47.9 Abs Neut (ANC) 1.45 - 7.50 k/uL 2.21 Lymph% % 43.0 Abs Lymph 1.00 - 4.00 k/uL 1.98 Weston% % 6.1 Abs Weston <0.87 k/uL 0.28 Eosin% % 1.7 Abs Eosin <0.46 k/uL 0.08 Baso% % 1.1 Abs Baso <0.11 k/uL 0.05 Immature Gran % % 0.2 IMMATURE GRANS (ABS) <0.10 k/uL <0.03 NRBC /100 WBC 0.0 Absolute nRBC <0.01 k/uL <0.01 DTYPE Auto Protein, Total 6.3 - 8.0 g/dL 7.1 Albumin 3.9 - 4.9 g/dL 4.5 Calcium 8.5 - 10.2 mg/dL 10.1 Bilirubin, Total 0.2 - 1.3 mg/dL 0.2 Alkaline Phosphatase 34 - 123 U/L 86 AST 13 - 35 U/L 24 ALT 7 - 38 U/L 15 Glucose 74 - 99 mg/dL 96 BUN 7 - 21 mg/dL 13 Creatinine 0.58 - 0.96 mg/dL 0.65 Sodium 136 - 144 mmol/L 141 Potassium 3.7 - 5.1 mmol/L 4.4 Chloride 98 - 107 mmol/L 105 CO2 22 - 30 mmol/L 25 Anion Gap 8 - 15 mmol/L 11 eGFR >=60 mL/min/1.73m? 97 Total Cholesterol, Nonfasting <200 mg/dL 242 (H) Triglycerides, Nonfasting <150 mg/dL 124 HDL Cholesterol, Nonfasting >39 mg/dL 38 (L) LDL Cholesterol Calculated, Nonfasting <100 mg/dL 179 (H) Non HDL Cholesterol, Nonfasting <130 mg/dL 204 (H) VLDL Cholesterol, Nonfasting <30 mg/dL 25 Total Chol/HDL Ratio, Nonfasting <5.10 mg/dL 6.37 (H) LDL/HDL Ratio, Nonfasting <2.54 mg/dL 4.71 (H) Hemoglobin A1C 4.3 - 5.6 % 5.2 Estimated Average Glucose mg/dL 103 TSH 0.270 - 4.200 mIU/L 1.470 Legend: (H) High (L) Low Assessment/Plan Medicare annual wellness visit, subsequent (Z00.00) - ASSESSMENT/PLAN: 1. Medicare annual wellness visit, subsequent - ICD9: V70.0, ICD10: Z00.00 (primary diagnosis) Counseled on healthy diet and regular exercise - Fall avoidance information provided - Personalized prevention plan provided - Discussed need for and benefit of weight loss. No weight on file for this encounter. - Smoking cessation encouraged; discussed risks to health and quitting strategies. Patient is ready to quit and nicotine replacement prescribed 2. Decreased visual acuity - ICD9: 369.9, ICD10: H54.7 F/u with optho. 3. Essential hypertension - ICD9: 401.9, ICD10: I10 - Controlled - Recommend home blo (more content not included)... Normal [facility] LIPID PANEL, NONFASTINGon Cholesterol [Mass/Vol] 137 mg/dL Normal <200 [facility] Comment on above: Order Comment: Reinaldoi men Type: BLOOD SPECIMENOrdering Facility: [facility] Address: [address] [place] [address] Result Comment: <200 mg/dL, Desirable 200-239 mg/dL, Borderline high >239 mg/dL, High Performed By: #### L IPNF ####[facility] LABCLIA [id number] [place] [address] [place] HDL CHOLESTEROL, NF 32 mg/dL Low >39 [facility] Comment on above: Order Comment: Reinaldoi men Type: BLOOD SPECIMENOrdering Facility: [facility] Address: [address] [place] [address] Result Comment: 40-5 9 mg/dL, Acceptable >59 mg/dL, High: Negative risk factor for coronary heart disease <40 mg/dL, Low: Positive risk factor for coronary heart disease Performed By: #### L IPNF ####[facility] LABCLIA [id number] [address] [place] LDL CHOLESTEROL CALCULATED, NF 85 mg/dL Normal <100 [facility] Comment on above: Order Comment: Tejal men Type: BLOOD SPECIMENOrdering Facility: [facility] Address: [address] [place] [address] Result Comment: <100 mg/dL, Optimal 100-129 mg/dL, Near optimal/above optimal 130-159 mg/dL, Borderline high 160-189 mg/dL, High >189 mg/dL, Very high Secondary prevention optimal LDL Cholesterol levels are recommended to be <70 mg/dL LDL cholesterol is calculated using the Beckett-NIH equation. Performed By: #### L IPNF ####[facility] LABCLIA [id number] [address] OF [place] LDL/HDL RATIO, NF 2.66 mg/dL High <2.54 [facility] Comment on above: Order Comment: Reinaldoi men Type: BLOOD SPECIMENOrdering Facility: [facility] Address: [address] [place] [address] Result Comment: Refe rence: 1. National Cholesterol Education Program ATP III Guideline At-A-Glance Quick Desk Reference: National Heart, Lung, and Blood Young Harris. National Institutes of Health. 2001: NIH Publication No. 01-3305. 2. An International Atherosclerosis Society position paper: global recommendations for the management of dyslipidemia: executive summary, Atherosclerosis. 2014: 232(2):410-413. Performed By: #### L IPNF ####[facility] LABCLIA [id number] [address] OF [facility] NON HDL CHOL, NF 105 mg/dL Normal <130 [facility] Comment on above: Order Comment: Speci men Type: BLOOD SPECIMENOrdering Facility: [facility] Address: [address] [place] [address] Result Comment: <130 mg/dL, Optimal 130-159 mg/dL, Near optimal/above optimal 160-189 mg/dL, Borderline high 190-219 mg/dL, High >219 mg/dL, Very high Secondary prevention optimal non HDL Cholesterol levels are recommended to be <100 mg/dL Performed By: #### L IPNF ####[facility] LABIA [id number] [address] OF [facility] T CHOL/HDL RATIO NF 4.28 mg/dL Normal <5.10 [facility] Comment on above: Order Comment: Reinaldoi [facility] Type: BLOOD SPECIMENOrdering Facility: [facility] Address: [address] [place] [address] Performed By: #### L IPNF ####[facility] LABCLIA [id number] [place] [address] [place] TRIGLYCERIDES, NF 105 mg/dL Normal <150 [facility] Comment on above: Order Comment: Reinaldoi men Type: BLOOD SPECIMENOrdering Facility: [facility] Address: [address] [place] [address] Result Comment: <150 mg/dL, Normal 150-199 mg/dL, Borderline high 200-499 mg/dL, High >499 mg/dL, Very high Performed By: #### L IPNF ####[facility] LABCLIA [id number] [place] [address] [place] VLDL CHOLESTEROL, NF 16 mg/dL Normal <30 [facility] Comment on above: Order Comment: Speci men Type: BLOOD SPECIMENOrdering Facility: [facility] Address: [address] [place] [address] Performed By: #### L IPNF ####[facility] LABCLIA [id number] [place] [address] [place] Echo Completeon 05-01-2024 Echo Complete [facility] [address] [place] [address] Echo Complete 05/01/24 0845 MR#: [id number] Acct: [id number] Name: MISSY RICKS Rep #: [id number] : 1955 68 From: Surinder Monroy MD Attending Dr: Dr. Surinder Monroy MD Status: REG CLI Ordering Dr: Surinder Monroy MD Date: 05/01/24 Location: CVS Sex: F C Admitted: Reason For Study Reason For Study: Dyspnea/SOB Procedure This was a 2D Doppler, Color Flow transthoracic echocardiogram. Exam performed in department. Left Ventricle Normal LV size. Mild concentric left ventricular hypertrophy. The left ventricular ejection fraction is 65 %. Stage 1 diastolic dysfunction. Right Ventricle Normal right ventricle. Atria The left and right atria are normal. Bubble contrast study is negative for PFO/ASD. Mitral Valve Mild (1+) mitral valve insufficiency. Tricuspid Valve Trivial tricuspid valve insufficiency. Normal pulmonary artery pressure. Aortic Valve Trisinus/trileaflet aortic valve. Trivial aortic valve insufficiency. Pulmonic Valve The pulmonic valve is not well visualized. Great Vessels Moderately dilated aortic root (4.5 cm). Pericardium/Pleural No pericardial effusion. Medication 22 gauge I.V. with prn adaptor inserted into right arm. Performed a rapid injection of agitated mix of 9 cc saline and 1cc air to assess for atrial septal defect. MMode/2D Measurements Calculations LVIDd: 4.4 cm IVSd: 1.2 cm LVOT diam: 2.0 cm LVIDs: 3.1 cm LVPWd: 0.89 cm RVDd: 3.2 cm FS: 29.0 % LVOT area: 3.0 cm2 _ Ao root diam: 4.5 cm asc Aorta Diam: 4.5 cm LAV(MOD-bp): 38.4 ml LAV(MOD-bp) Indexed: 18.6 ml/m2 LAV(MOD-sp2): 40.2 ml LAV(MOD-sp4): 35.1 ml _ SV(MOD-sp4): 61.3 ml SV(sp4-el): 65.0 ml LVAd ap4: 29.2 cm2 LVLd ap4: 7.7 cm SI(MOD-sp4): 29.8 ml/m2 EDV(MOD-sp4): 90.6 ml EDV(sp4-el): 94.7 ml LVAs ap4: 14.5 cm2 LVLs ap4: 6.0 cm ESV(MOD-sp4): 29.3 ml ESV(sp4-el): 29.7 ml EF(MOD-sp4): 67.7 % EF(sp4-el): 68.7 % _ Ao sinus diam: 3.[address] Junction: 3.5 cm LA A4 area: 14.0 cm2 _ LA dimension(2D): 3.3 cm TAPSE: 1.8 cm RA A4 area: 14.4 cm2 Time Measurements MV dec time: 0.26 sec Doppler Measurements Calculations MV E max colin: 61.4 cm/sec Lat Peak E' Colin: 10.1 cm/sec Med Peak E' Colin: 7.7 cm/sec MV A max colin: 92.0 cm/sec E/E' lat: 6.1 E/E' med: 7.9 MV E/A: 0.67 _ MV V2 max: 98.0 cm/sec MV P1/2t max colin: 77.6 cm/sec Ao V2 max: 143.7 cm/sec MV max P.8 mmHg MV P1/2t: 89.0 msec Ao max P.3 mmHg MV V2 mean: 55.8 cm/sec MV dec slope: 255.4 cm/sec2 Ao V2 mean: 95.6 cm/sec MV mean P.4 mmHg Ao mean P.2 mmHg MV V2 VTI: 27.3 cm MVA(P1/2t): 2.5 cm2 Ao V2 VTI: 31.6 cm MVA(VTI): 2.8 cm2 AV (velocity ratio): 0.80 KIMBERLY(I,D): 2.4 cm2 KIMBERLY(V,D): 2.5 cm2 _ LV V1 max: 119.1 cm/sec MR max colin: 570.7 cm/sec SV(LVOT): 75.6 ml LV V1 max P.7 mmHg MR max P.3 mmHg LV V1 mean P.1 mmHg LV V1 mean: 80.1 cm/sec LV V1 VTI: 25.3 cm _ PA V2 max: 88.7 cm/sec TR max colin: 211.6 cm/sec TR max P.9 mmHg ECHO/Echo Complete Interpretation Summary Mild concentric left ventricular hypertrophy. The left ventricular ejection fraction is 65 %. Stage 1 diastolic dysfunction. Mild (1+) mitral valve insufficiency. Moderately dilated aortic root (4.5 cm) Bubble contrast study is negative for PFO/ASD. Ordering Physician: Surinder Monroy Referring Physician: Surinder Monroy Performed By: Orestes Van RCS 05/01/24 1259 Date Surinder Monroy MD CC: Dr. Surinder Monroy MD; Dr. Tres Mann MD Date Dictated: 05/01/24 0845 Date Transcribed: 05/01/241258 It Administrative Assistant: Signed [facility] Stress Reporton 05-01-2024 Stress Report [facility] [address] [place] [address] MR#: [id number] Acct: [id number] Name: MISSY RICKS Rep #: [id number] : 1955 68 From: Surinder Monroy MD Primary Care: Dr. Tres Mann MD Status: REG CLI Referring Dr: Surinder Monroy MD Sex: F C Stress Test Report Date: 05/01/2024 Procedure: Exercise tolerance test/imaging study Indications: Dyspnea on exertion Consent: Per the patient Procedure: The patient exercised on a Collin protocol for 5 minutes and 11 seconds achieving a peak heart rate of 146 bpm (94% predicted maximal heart rate) with a peak blood pressure 150/90 mmHg and a peak MET capacity of 7.0 METs. The baseline ECG demonstrated sinus rhythm. The peak exercise ECG demonstrated sinus tachycardia with no ischemic changes. Motion artifact reduces sensitivity. Occasional PVCs noted in recovery. The functional capacity was considered average. There was no complaint of chest discomfort during exercise or recovery. The examination was discontinued secondary to target heart rate being achieved and dyspnea. The patient was injected with 14.0 mCi of technetium 99m Cardiolite and subsequently rest SPECT Cardiolite nuclear imaging was obtained in the horizontal long, vertical long, and short axis views. Post-exercise, the patient was injected with 42.3 mCi of technetium 99m Cardiolite and subsequently stress SPECT Cardiolite nuclear imaging was obtained in the horizontal long, vertical long, and short axis views. A gated Cardiolite study at peak stress was obtained. Rest and stress SPECT Cardiolite nuclear imaging status post realignment, normalization, and attenuation correction, demonstrates the appearance of relative uniform tracer uptake and myocardial perfusion appearing within normal limits. There is end systolic thickening and brightening. The gated Cardiolite study demonstrates myocardial thickening and inward wall motion. The reported LVEF is 79%. Impression: 1. Technically adequate (percent predicted maximal heart rate greater than 85%) exercise tolerance test 2. Peak exercise ECG with no ischemic changes. 3. Occasional PVC noted in recovery 4. Rest and stress SPECT Cardiolite nuclear imaging demonstrate relative uniform tracer uptake and myocardial perfusion appearing within normal limits. 5. The gated Cardiolite study reports an LVEF of 79%. This note was generated with KO-SUation software. It may contain incorrect words, spelling, and punctuation that were not noted in checking the note before signing. 05/01/24 1230 Date Surinder Monroy MD CC: Dr. Surinder Monroy MD; Dr. Tres Mann MD Date Dictated: 05/01/241228 Date Transcribed: 05/01/241228 It Administrative Assistant: CHRISTIAN Coats [facility] 04-16-2024 [facility] Telephone ([facility]) -------- MISSY RICKS ([id number]) 1955 F Date Time Provider Department 04/16/24 CARRINGTON MANN During your visit today, we recorded the following information about you: Noreen Kennedy, RN 04/16/2024 10:08 AM Signed Pt had called in asking about her cholesterol. I told her it was elevated, and they had tried to call her and ended up sending her a letter about it. She said the Lipitor had given her diarrhea and she thought she should e on something to control it. Per TE from 01/11/25 Dr Mann wanted to put Pt on Crestor. Please send Rx to [facility] in [place]. Please call Pt back to let her know when it is sent in. She said to leave a message if she doesn't answer. Please let Pt know to come back in 3 months after starting medication to get labs drawn. Carrington Mann MD 04/16/2024 10:29 AM Signed Rx sent. Recheck labs in 3 months. Ramya Johnson LPN 04/16/2024 10:39 AM Signed Patient notified. Allergies As of Date: 04/16/2024 Noted Allergy Reaction CASHEW NUT 08/21/2006 2 - Rash BACTRIM (SULFAMETHOXAZOLE-TRIMET H*01/19/2016 17 - Myalgia Comments: Myalgias, photosensitivity and fever. LIPITOR (ATORVASTATIN) 01/11/2024 6 - Diarrhea PENICILLINS 03/16/2005 PREDNISONE 01/19/2016 5 - Intolerance Comments: Agitation, nervousness. Date Reviewed: 03/04/2024 Reviewed by: Radha Dacosta, RT(R) - Fully Assessed Reason for Visit: Patient Question [0947] Medication Request [138] Primary Visit Diagnosis:Hyperlipidemia , mixed [E78.2] Order(s):LIPID PANEL, NONFASTING [SQLIPNF] Order #: [id number] FUTURE rosuvastatin (CRESTOR) 10 mg tabletTake 1 tablet by mouth daily at bedtime.Disp: 90 tabletRfl: 0 Prescriptions as of 04/16/2024 - rosuvastatin (CRESTOR) 10 mg tablet Take 1 tablet by mouth daily at bedtime. - nicotine (NICODERM) 21 mg/24 hr Apply 1 Patch as directed every 24 hours. - nicotine (NICODERM) 14 mg/24 hr Apply 1 Patch as directed every 24 hours. No smoking with patch. - nicotine (NICODERM) 7 mg/24 hr Apply 1 Patch as directed every 24 hours for 14 days. - lisinopril (ZESTRIL) 10 mg tablet Take 1 tablet by mouth once daily. - hydroCHLOROthiazide 25 mg tablet Take 1 tablet by mouth once daily. Meds Comments as of 05/19/2009: No current medications/reviewed May 19, 2009. Мария Yousif Vp Integrity Problem List As Of Date 04/16/2024 Noted Resolved ESOPHAGEAL REFLUX [K21.9] 09/13/2006 THROMBOCYTOPENIA NOS [D69.6] 09/13/2006 Menopause [Z78.0] 08/10/2009 Family History of Colonic Polyps [Z83.719] 08/10/2009 Trigger middle finger of right hand [M65.331] 01/19/2016 Carpal tunnel syndrome, right [G56.01] 01/19/2016 Tobacco use [Z72.0] Obesity (BMI 30.0-34.9) [E66.811] Benign paroxysmal positional vertigo due to danielito*01/30/2020 Essential hypertension [I10] 01/11/2024 Hyperlipidemia, mixed [E78.2] 01/11/2024 Prescriptions ordered this encounter Disp Refills Start End ROSUVASTATIN 10 MG TABLET 90 t* 0 04/16/2024 07/15/2024 Route: ORAL Sig: Take 1 tablet by mouth daily at bedtime. Encounter Status:Closed by RAMYA JOHNSON on 04/16/24 Normal [facility] 12 Lead EKG performed by [facility] on 04-15-2024 12 Lead EKG performed by [place] [place] [address] 12 Lead EKG performed by [facility] 04/15/24 0831 MR#: [id number] Acct: [id number] Name: MISSY RICKS Rep #: [id number] : 1955 68 From: Surinder Monroy MD Attending Dr: Dr. Surinder Monroy MD Status: DEP AMB Ordering Dr: Surinder Monroy MD Date: 04/15/24 Location: [facility] Sex: F C Admitted: [facility]/12 Lead EKG performed by [facility] ECG Report Interpretation --Sinus Rhythm Low voltage in precordial leads. -Poor R-wave progression -may be secondary to pulmonary disease consider old anterior infarct. ABNORMAL Electronically signed on 04/15/2024 at 11:[address] Surinder Monroy [employer] Software Version 8610 04/15/24 1140 Date Surinder Monroy MD CC: Dr. Tres Mann MD Date Dictated: 04/15/24830 Date Transcribed: 04/15/24830 It Administrative Assistant: CHRISTIAN Signed [facility] Cardiology Visit Reporton Cardiology Visit Report [facility] [address] [place], [place] [address] OFFICE VISIT Date of Service: 04/15/24 MR#: [id number] Acct: [id number] Name: MISSY RICKS Rep #: [id number] : 1955 Provider: Dr. Surinder Monroy MD Age/Sex: 68/F Location: [facility] Status: Signed HPI HPI History of Present Illness Details: This lady has past medical history significant for hypertension, nicotine dependence and dyslipidemia. Recently she has had a surveillance CT scan of her chest done. It showed ectasia of the aorta measuring 4.5 cm as an incidental finding. Subsequently she has been referred to us for evaluation and management. Patient denies any chest pains either at rest or with exertion. For the past 1 year or so, she has noticed shortness of breath with moderate exertion such as climbing a flight of stairs. Denies any orthopnea. No PND. No ankle edema. Denies any palpitations. No lightheadedness or dizziness. No syncope or presyncope. 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 Accompanied by: Sister Is patient in pain?: No Allergies cashew nut Allergy (Mild, Verified 04/15/24 10:12) Rash sulfamethoxazole (From Bactrim) Allergy (Verified 04/15/24 10:12) Unknown trimethoprim (From Bactrim) Allergy (Verified 04/15/24 10:12) Unknown atorvastatin (From Lipitor) Adverse Reaction (Mild, Verified 04/15/24 10:12) NEEDS FOLLOW-UP Penicillins Adverse Reaction (Mild, Verified 04/15/24 10:12) Diarrhea prednisone Adverse Reaction (Mild, Verified 04/15/24 10:12) Agitation, nervousness Medications ???Medication ???Instructions ???Recorded ???Confirmed ???Type hydrochlorothiazide 25 mg tablet 25 mg PO DAILY 12/24/20 04/15/24 History lisinopril 10 mg tablet 10 mg PO DAILY 12/24/20 04/15/24 History Have you fallen in the past year?: No PFSH Medical History BPPV (benign paroxysmal positional vertigo) Dysplasia of cervix, unspecified GERD (gastroesophageal reflux disease) History of uterine fibroid Hypertension Mixed hyperlipidemia Obesity (BMI 30.0-34.9) Tobacco use Family History Mother Diabetes Hypertension Father Hypertension Parkinsons disease Alzheimers disease Brother Hypertension Colon polyps Grandmother Diabetes Sister Breast cancer Social History Smoking Status: Current every day smoker tobacco type: cigarettes Smoking packs per day: 1 Smoking cigarettes per day: 20.0 Years smoked: 35 Smoking pack-years: 35.00 Tobacco: How many years used: 35 Electronic Cigarette Use: not used smoking status start date: 12/27/80 alcohol intake: never substance use type: does not use ROS Const Const: Negative for fatigue, weakness, headache(s) or weight gain ENT ENT: Negative for headache(s), dizziness, Nosebleed/epistaxis or balance problems Cardio Chest Pain: No Palpitations: No Edema: None Muscle aches with walking: None Resp Respiratory: Negative for SOB with activity, SOB at rest or SOB orthopnea SOB lying down GI GI: Negative nausea, vomiting or heartburn Musc Musc: Negative for muscle aches/ myalgia, muscle weakness, joint pain or balance problems Neuro Neuro: Negative for dizziness, lightheadedness, near syncope, syncope, headache(s) or weakness Endo Endo: Negative for fatigue Cardiology Exam Const Appearance: comfortable and no acute distress Nutritional Appearance: well nourished Neck Neck: no JVD Carotids: Negative bruit Chest Auscultation: Bilateral: Clear to Auscultation Cardio Rate: regular rate Rhythm: regular rhythm Heart sounds: S1 normal and S2 normal Neuro General: patient alert, patient awake and patient oriented x3 Extremities Lower Extremity Edema: None: Bilateral Supplemental Info Supplemental Information CT Lung Screen w/IVCON 03/06/2024: Other Findings: Ectasia of the ascending aorta which measures 4.5 cm in its mid segment. Minimal calcifications in the distal aortic arch and descending thoracic aorta. Assessment and Plan Assessment and Plan (1) Thoracic aortic aneurysm: Status: Chronic Comment: CT of chest showing thoracic aorta measuring at 4.5 cm Plan: Periodic CT surveillance. Blood pressure control. Start on metoprolol ER 25 mg daily. (2) Atherosclerotic vascular disease: Status: Chronic Plan: Atherosclerosis of the thoracic aorta noted as an incidental finding on CT of chest. Start enteric- coated aspirin 81 mg chi (more content not included)... [facility] -------- MISSY RICKS ([id number]) 1955 F Date Time Provider Department 03/07/24 BELL DIXON [facility] During your visit today, we recorded the following information about you: Bell Dixon APRN.CNP 03/07/2024 12:23 PM Signed Left message for pt to call back regarding results. Plan to discuss with patient LDCT Lung Screen Results LungRADS category: 2s Incidentals: 4.5 cm ascending aortic ectasia Recommendations: Continue annual screening with LDCT in 12 months. Bell Dixon APRN.CNP March 07, 2024 12:21 PM Bell Dixon APRN.CNP 03/12/2024 9:42 AM Signed Pt notified. Recommended cardiology consult. She prefers [facility]. Pt will call to schedule her own appointment. Results forwarded. Will send formal referral. 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 LIPITOR (ATORVASTATIN) 01/11/2024 6 - Diarrhea PENICILLINS 03/16/2005 PREDNISONE 01/19/2016 5 - Intolerance Comments: Agitation, nervousness. Date Reviewed: 03/04/2024 Reviewed by: Radha Dacosta RT(R) - Fully Assessed Reason for Visit: Results [95] Primary Visit Diagnosis:Encounter for screening for lung cancer [Z12.2] Other Visit Diagnoses:Tobacco use [Z72.0] Abnormality of ascending aorta [Q25.40] Order(s):CT LUNG SCREEN WO CURLYON [2350829] Order #: [id number] FUTURE CONSULT TO CARDIOLOGY [9004] Order #: [id number]: 1 FUTURE Prescriptions as of 03/12/2024 - nicotine (NICODERM) 21 mg/24 hr Apply 1 Patch as directed every 24 hours. - nicotine (NICODERM) 14 mg/24 hr Apply 1 Patch as directed every 24 hours. No smoking with patch. - nicotine (NICODERM) 7 mg/24 hr Apply 1 Patch as directed every 24 hours for 14 days. - lisinopril (ZESTRIL) 10 mg tablet Take 1 tablet by mouth once daily. - hydroCHLOROthiazide 25 mg tablet Take 1 tablet by mouth once daily. Meds Comments as of 05/19/2009: No current medications/reviewed May 19, 2009. Мария Yousif Lpn Problem List As Of Date 03/07/2024 Noted Resolved ESOPHAGEAL REFLUX [K21.9] 09/13/2006 THROMBOCYTOPENIA NOS [D69.6] 09/13/2006 Menopause [Z78.0] 08/10/2009 Family History of Colonic Polyps [Z83.719] 08/10/2009 Trigger middle finger of right hand [M65.331] 01/19/2016 Carpal tunnel syndrome, right [G56.01] 01/19/2016 Tobacco use [Z72.0] Obesity (BMI 30.0-34.9) [E66.811] Benign paroxysmal positional vertigo due to danielito*01/30/2020 Essential hypertension [I10] 01/11/2024 Hyperlipidemia, mixed [E78.2] 01/11/2024 Encounter Status:Closed by BELL DIXON on 03/12/24 Normal [facility] CT Chest for screening WO co ntraston 03-06-2024 IMPRESSION: LungRADS category: 2 S LungRADS modifier: Significant other (S), 4.5 cm ectasia of the ascending aorta LungRADS 0 reason: n/a Recommendations: Continue annual screening with LDCT in 12 months. Other actionable findings: === Reference: [employer]. Lung CT Screening Reporting and Data System (Lung-RADS). Available at: http://www.acr.org/Quali ty-Safety/Resources/Lung RADS It Administrative Assistant: KENNETH Transcribe Date/Time: Mar 06 2024 6:44P Dictated by : DENNYS ALEJANDRA MD This examination was interpreted and the report reviewed and electronically signed by: DENNYS ALEJANDRA MD on Mar 06 2024 6:50PM [facility] OF RADIOLOGY * * *Final Report* * * DATE OF EXAM: Mar 06 2024 9:01AM [facility] 0562 - CT LUNG SCREEN WO IVCON / PROCEDURE REASON: multiple diagnoses * * * * Physician Interpretation * * * * EXAMINATION: CHEST CT WITHOUT CONTRAST (LOW-DOSE CT LUNG CANCER SCREENING PROTOCOL) CLINICAL HISTORY: Lung cancer LDCT screening ? absence of signs or symptoms of lung cancer. Nicotine dependence (cigarettes). Baseline (initial) Technique: Spiral CT acquisition of the chest from the thoracic inlet to the upper abdomen without contrast. MQ: CTLCS_6 Patient characteristics: * Ennf-oo-Dvmow: 1955; Age at exam: 68 years * Gender: Female * Lung Disease: Asymptomatic (no signs or symptoms of lung disease) * Number of Pack Years: 38 * Current smoker (=0) or Number of Years since Quit: 0 * Ordering provider and NPI: BELL DIXON [id number] * Interpreting radiologist and NPI: Elan [id number] Exam acquisition parameters: * Exam Date: 03/06/2024 9:01 AM * Site: [facility] * * CT System Set Up Mechanic Automatic Line: Siemens * CT System Model: Sensation * Tube Current-Time (mA-sec): 27 * Peak Voltage (kV): 120V * Scan Time (sec): 12.03 * Scan Volume (z-length, cm): 3.30 * Pitch: 0.75 * Slice Thickness (mm): 1.5 * CT Dose-Length Product: 94 mGy*cm * CT Dose Index: 2.09mGy * CT Dose Reduction Method: Automated exposure control(AEC) and iterative recon COMPARISON: None RESULT: Are nodules present? Yes, 1-5 nodules If No, go to IMPRESSION. If yes, proceed with characterization of the FIVE largest nodules. Nodule 1: This Solid nodule is located in the Right Lower Lobe on slice number 220 with an average diameter of 5.9 mm (7.4 mm x 4.3 mm). Nodule 2: This Solid nodule is located in the Left Lower Lobe on slice number 110 with an average diameter of 4.3 mm (5.5 mm x 3.1 mm). Nodule 3: This Solid nodule is located in the Right Upper Lobe on slice number 110 with an average diameter of 1.7 mm (2.0 mm x 1.4 mm). If this is an ANNUAL LDCT for LCS, please ensure nodule number is the same as in the prior evaluation. Other lung nodule comments: None. Other findings: Ectasia of the ascending aorta which measures 4.5 cm in its mid segment. Minimal calcifications in the distal aortic arch and descending thoracic aorta. Minimal smooth bronchial wall thickening in both lungs suggestive of airway inflammation. Mild endplate degenerative changes in the thoracic spine. A 15 mm lucent lesion in the T11 vertebral bodies suggestive of an intraosseous hemangioma. Emphysema: None, Not reported, Not reported Coronary Artery Calcifications: Circumflex None; Left Anterior Descending None; Right Coronary None Localizer images: No additional findings. DIVISION OF RADIOLOGY Provider, Larissa Brittnee [facility] - 03/06/2024 * * *Final Report* * * DATE OF EXAM: Mar 06 2024 9:01AM [facility] 0562 - CT LUNG SCREEN WO [facility] / PROCEDURE REASON: multiple diagnoses * * * * Physician Interpretation * * * * EXAMINATION: CHEST CT WITHOUT CONTRAST (LOW-DOSE CT LUNG CANCER SCREENING PROTOCOL) CLINICAL HISTORY: Lung cancer LDCT screening ? absence of signs or symptoms of lung cancer. Nicotine dependence (cigarettes). Baseline (initial) Technique: Spiral CT acquisition of the chest from the thoracic inlet to the upper abdomen without contrast. MQ: CTLCS_6 Patient characteristics: * Jtxh-dv-Pwjka: 1955; Age at exam: 68 years * Gender: Female * Lung Disease: Asymptomatic (no signs or symptoms of lung disease) * Number of Pack Years: 38 * Current smoker (=0) or Number of Years since Quit: 0 * Ordering provider and NPI: BELL DIXON [id number] * Interpreting radiologist and NPI: Elan [id number] Exam acquisition parameters: * Exam Date: 03/06/2024 9:01 AM * Site: [facility] * * CT System Set Up Mechanic Automatic Line: Siemens * CT System Model: Sensation * Tube Current-Time (mA-sec): 27 * Peak Voltage (kV): 120V * Scan Time (sec): 12.03 * Scan Volume (z-length, cm): 3.30 * Pitch: 0.75 * Slice Thickness (mm): 1.5 * CT Dose-Length Product: 94 mGy*cm * CT Dose Index: 2.09mGy * CT Dose Reduction Method: Automated exposure control(AEC) and iterative recon COMPARISON: None RESULT: Are nodules present? Yes, 1-5 nodules If No, go to IMPRESSION. If yes, proceed with characterization of the FIVE largest nodules. Nodule 1: This Solid nodule is located in the Right Lower Lobe on slice number 220 with an average diameter of 5.9 mm (7.4 mm x 4.3 mm). Nodule 2: This Solid nodule is located in the Left Lower Lobe on slice number 110 with an average diameter of 4.3 mm (5.5 mm x 3.1 mm). Nodule 3: This Solid nodule is located in the Right Upper Lobe on slice number 110 with an average diameter of 1.7 mm (2.0 mm x 1.4 mm). If this is an ANNUAL LDCT for LCS, please ensure nodule number is the same as in the prior evaluation. Other lung nodule comments: None. Other findings: Ectasia of the ascending aorta which measures 4.5 cm in its mid segment. Minimal calcifications in the distal aortic arch and descending thoracic aorta. Minimal smooth bronchial wall thickening in both lungs suggestive of airway inflammation. Mild endplate degenerative changes in the thoracic spine. A 15 mm lucent lesion in the T11 vertebral bodies suggestive of an intraosseous hemangioma. Emphysema: None, Not reported, Not reported Coronary Artery Calcifications: Circumflex None; Left Anterior Descending None; Right Coronary None Localizer images: No additional findings. IMPRESSION IMPRESSION: LungRADS category: 2 S LungRADS modifier: Significant other (S), 4.5 cm ectasia of the ascending aorta LungRADS 0 reason: n/a Recommendations: Continue annual screening with LDCT in 12 months. Other actionable findings: === Reference: [employer]. Lung CT Screening Reporting and Data System (Lung-RADS). Available at: http://www.acr.org/Quali ty-Safety/Resources/Lung RADS It Administrative Assistant: KENNETH Transcribe Date/Time: Mar 06 2024 6:44P Dictated by : DENNYS ALEJANDRA MD This examination was interpreted and the report reviewed and electronically signed by: DENNYS ALEJANDRA MD on Mar 06 2024 6:50PM EST [facility] Radiology Study observation (narrative) [facility] CT Chest for screening WO co ntrastOrdered By: Ccf Provider on 03-06-[address] [facility] CT LUNG SCREEN WO IVCONon CT LUNG SCREEN WO IVCON * * *Final Report* * * DATE OF EXAM: Mar 06 2024 9:01AM [facility] 0562 - CT LUNG SCREEN WO IVCON / PROCEDURE REASON: multiple diagnoses * * * * Physician Interpretation * * * * EXAMINATION: CHEST CT WITHOUT CONTRAST (LOW-DOSE CT LUNG CANCER SCREENING PROTOCOL) CLINICAL HISTORY: Lung cancer LDCT screening ? absence of signs or symptoms of lung cancer. Nicotine dependence (cigarettes). Baseline (initial) Technique: Spiral CT acquisition of the chest from the thoracic inlet to the upper abdomen without contrast. MQ: CTLCS_6 Patient characteristics: * Yxkm-nn-Cdutt: 1955; Age at exam: 68 years * Gender: Female * Lung Disease: Asymptomatic (no signs or symptoms of lung disease) * Number of Pack Years: 38 * Current smoker (=0) or Number of Years since Quit: 0 * Ordering provider and NPI: BELL DIXON [id number] * Interpreting radiologist and NPI: Elan [id number] Exam acquisition parameters: * Exam Date: 03/06/2024 9:01 AM * Site: [facility] * * CT System Set Up Mechanic Automatic Line: Siemens * CT System Model: Sensation * Tube Current-Time (mA-sec): 27 * Peak Voltage (kV): 120V * Scan Time (sec): 12.03 * Scan Volume (z-length, cm): 3.30 * Pitch: 0.75 * Slice Thickness (mm): 1.5 * CT Dose-Length Product: 94 mGy*cm * CT Dose Index: 2.09mGy * CT Dose Reduction Method: Automated exposure control(AEC) and iterative recon COMPARISON: None RESULT: Are nodules present? Yes, 1-5 nodules If No, go to IMPRESSION. If yes, proceed with characterization of the FIVE largest nodules. Nodule 1: This Solid nodule is located in the Right Lower Lobe on slice number 220 with an average diameter of 5.9 mm (7.4 mm x 4.3 mm). Nodule 2: This Solid nodule is located in the Left Lower Lobe on slice number 110 with an average diameter of 4.3 mm (5.5 mm x 3.1 mm). Nodule 3: This Solid nodule is located in the Right Upper Lobe on slice number 110 with an average diameter of 1.7 mm (2.0 mm x 1.4 mm). If this is an ANNUAL LDCT for LCS, please ensure nodule number is the same as in the prior evaluation. Other lung nodule comments: None. Other findings: Ectasia of the ascending aorta which measures 4.5 cm in its mid segment. Minimal calcifications in the distal aortic arch and descending thoracic aorta. Minimal smooth bronchial wall thickening in both lungs suggestive of airway inflammation. Mild endplate degenerative changes in the thoracic spine. A 15 mm lucent lesion in the T11 vertebral bodies suggestive of an intraosseous hemangioma. Emphysema: None, Not reported, Not reported Coronary Artery Calcifications: Circumflex None; Left Anterior Descending None; Right Coronary None Localizer images: No additional findings. IMPRESSION: LungRADS category: 2 S LungRADS modifier: Significant other (S), 4.5 cm ectasia of the ascending aorta LungRADS 0 reason: n/a Recommendations: Continue annual screening with LDCT in 12 months. Other actionable findings: === Reference: [employer]. Lung CT Screening Reporting and Data System (Lung-RADS). Available at: http://www.acr.org/Quali ty-Safety/Resources/Lung RADS It Administrative Assistant: KENNETH Transcribe Date/Time: Mar 06 2024 6:44P Dictated by : DENNYS ALEJANDRA MD This examination was interpreted and the report reviewed and electronically signed by: DENNYS ALEJANDRA MD on Mar 06 2024 6:50PM EST [id number] Normal [facility] MISSY RICKS ([id number]) 1955 F Date Time Provider Department 03/01/24 CARRINGTON MANN During your visit today, we recorded the following information about you: Trinh Reeder LPN 03/01/2024 9:17 AM Signed ----- Message from Carrington Mann MD sent at 03/01/2024 9:16 AM EST ----- DXA scan shows normal bone density. Recommend weight bearing exercise and 1,000 units of calcium and vitamin D daily. Repeat in 2 years. Trinh Reeder LPN 03/01/2024 9:20 AM Signed Phoned patient spoke with Parker, he will give her message to call back for results. 2 messages in computer for her. Fiorella Burdick RN 03/06/2024 1:48 PM Signed Called and left a voicemail for the patient to call back and ask for a nurse to receive the providers message. Trinh Reeder LPN 03/07/2024 9:51 AM Signed Patient returned call and went over results, notes from Dr Mann with understanding. Allergies As of Date: 03/01/2024 Noted Allergy Reaction CASHEW NUT 08/21/2006 2 - Rash BACTRIM (SULFAMETHOXAZOLE-TRIMET H*01/19/2016 17 - Myalgia Comments: Myalgias, photosensitivity and fever. LIPITOR (ATORVASTATIN) 01/11/2024 6 - Diarrhea PENICILLINS 03/16/2005 PREDNISONE 01/19/2016 5 - Intolerance Comments: Agitation, nervousness. Date Reviewed: 02/26/2024 Reviewed by: Adan Ruggiero RPFT - Fully Assessed Reason for Visit: F/U on Bone Density Results [1260] Prescriptions as of 03/07/2024 - nicotine (NICODERM) 21 mg/24 hr Apply 1 Patch as directed every 24 hours. - nicotine (NICODERM) 14 mg/24 hr Apply 1 Patch as directed every 24 hours. No smoking with patch. - nicotine (NICODERM) 7 mg/24 hr Apply 1 Patch as directed every 24 hours for 14 days. - lisinopril (ZESTRIL) 10 mg tablet Take 1 tablet by mouth once daily. - hydroCHLOROthiazide 25 mg tablet Take 1 tablet by mouth once daily. Meds Comments as of 05/19/2009: No current medications/reviewed May 19, 2009. Мария Maffett Vp Integrity Problem List As Of Date 03/01/2024 Noted Resolved ESOPHAGEAL REFLUX [K21.9] 09/13/2006 THROMBOCYTOPENIA NOS [D69.6] 09/13/2006 Menopause [Z78.0] 08/10/2009 Family History of Colonic Polyps [Z83.719] 08/10/2009 Trigger middle finger of right hand [M65.331] 01/19/2016 Carpal tunnel syndrome, right [G56.01] 01/19/2016 Tobacco use [Z72.0] Obesity (BMI 30.0-34.9) [E66.811] Benign paroxysmal positional vertigo due to danielito*01/30/2020 Essential hypertension [I10] 01/11/2024 Hyperlipidemia, mixed [E78.2] 01/11/2024 Encounter Status:Closed by TRINH REEDER on 03/07/24 Normal [facility] BD DXA - AXIAL SKELETONon BD DXA - AXIAL SKELETON * * *Final Report* * * DATE OF EXAM: Feb 29 2024 8:51AM [facility] 0804 - BD DXA - AXIAL SKELETON / PROCEDURE REASON: Asymptomatic postmenopausal status * * * * Physician Interpretation * * * * EXAMINATION: DXA BONE DENSITOMETRY BD DXA - AXIAL SKELETON, BD DXA TRABECLR BONE SCORE (TBS) PATIENT DEMOGRAPHICS: Age: 68 years, Gender: Female SCANNER INFORMATION: DXA Model: [employer] - [employer] C [id number] Date Scanned: 02/29/2024 8:51 AM CLINICAL HISTORY: SCREENING Asymptomatic postmenopausal status . RISK FACTORS FOR OSTEOPOROSIS AND ASSOCIATED FRACTURES REPORTED BY THIS PATIENT: Please refer to Bone Health Questionnaire in the EMR CURRENT THERAPY: Please refer to Bone Health Questionnaire in the EMR TECHNICAL LIMITATIONS: RESULTS: Lumbar spine (L1, L2, L3, L4): 0.993 g/cm2, T-score -0.5 , Z-score 1.4 Right Femoral Neck: 0.742 g/cm2, T-score -1.0 , Z-score 0.6 Right Total Hip: 0.996 g/cm2, T-score 0.4 , Z-score 1.7 Left Femoral Neck: 0.752 g/cm2, T-score -0.9 , Z-score 0.7 Left Total Hip: 0.994 g/cm2, T-score 0.4 , Z-score 1.7 No comparison data - the patient has not had a previous bone density in the [facility] or the previous bone density was performed on a different DXA machine (new, updated model or different location) within the [facility]. VERTEBRAL FRACTURE ASSESSMENT Not performed. TRABECULAR BONE ASSESSMENT TBS score: 1.227 Bone micro-architecture: Degraded (< or = 1.230) IMPRESSION: THE LOWEST T-SCORE IS -1.0 IN THE RIGHT HIP 1) DIAGNOSIS (based on BMD alone): NORMAL BONE DENSITY Caution: Medical conditions other than osteoporosis may cause low bone density, such as osteomalacia or renal osteodystrophy. Clinical correlation is necessary. 2) FRACTURE RISK (Based on TBS adjusted FRAX): 10-year absolute fracture risk: - major osteoporotic fracture = 15 % - hip fracture = 1.6 % - A diagnosis of Osteoporosis, a 10 year probability of hip fracture greater than or equal to 3% or a 10 year probability of any major osteoporosis-related fracture greater than or equal to 20% should be considered for treatment. - DXA scanner generated FRAX calculations may slightly differ from online FRAX calculations due to differences in software versions. - All recommendations and calculations are to be considered as guidelines and should not replace sound clinical judgement - Caution: Fracture risk may be increased independent of BMD in patients with corticosteroid use, age greater than 65 years, or a history of prior fragility fracture. RECOMMENDATIONS: Follow-up in 2 years or as clinically indicated. Patients that are taking corticosteroids, are transplant recipients or have hyperparathyroidism should have annual follow-up. Follow-up scans should always be done on the same machine for accurate comparison. FOR MORE INFORMATION ABOUT DIAGNOSIS AND TREATMENT: [facility] Center for Osteoporosis and Metabolic Bone Disease:? www.ccf.org/arthritis/os elton National Osteoporosis Foundation:? www.nof.org International Society of Clinical Densitometry www.iscd.org It Administrative Assistant: KENNETH Transcribe Date/Time: Mar 01 2024 9:10A Dictated by : ELHAM FREDERICK MD This examination was interpreted and the report reviewed and electronically signed by: ELHAM FREDERICK MD on Mar 01 2024 9:12AM EST [id number] -1.0 Normal [facility] DXA TRABECLR BONE SCORE ( TBS)on 02-29-2024 BD DXA TRABECLR BONE SCORE (TBS) * * *Final Report* * * DATE OF EXAM: Feb 29 2024 8:51AM [facility] [id number] - BD DXA TRABECLR BONE SCORE (TBS) / PROCEDURE REASON: Asymptomatic postmenopausal status * * * * Physician Interpretation * * * * EXAMINATION: DXA BONE DENSITOMETRY BD DXA - AXIAL SKELETON, BD DXA TRABECLR BONE SCORE (TBS) PATIENT DEMOGRAPHICS: Age: 68 years, Gender: Female SCANNER INFORMATION: DXA Model: [employer] C [id number] Date Scanned: 02/29/2024 8:51 AM CLINICAL HISTORY: SCREENING Asymptomatic postmenopausal status . RISK FACTORS FOR OSTEOPOROSIS AND ASSOCIATED FRACTURES REPORTED BY THIS PATIENT: Please refer to Bone Health Questionnaire in the EMR CURRENT THERAPY: Please refer to Bone Health Questionnaire in the EMR TECHNICAL LIMITATIONS: RESULTS: Lumbar spine (L1, L2, L3, L4): 0.993 g/cm2, T-score -0.5 , Z-score 1.4 Right Femoral Neck: 0.742 g/cm2, T-score -1.0 , Z-score 0.6 Right Total Hip: 0.996 g/cm2, T-score 0.4 , Z-score 1.7 Left Femoral Neck: 0.752 g/cm2, T-score -0.9 , Z-score 0.7 Left Total Hip: 0.994 g/cm2, T-score 0.4 , Z-score 1.7 No comparison data - the patient has not had a previous bone density in the [facility] or the previous bone density was performed on a different DXA machine (new, updated model or different location) within the [facility]. VERTEBRAL FRACTURE ASSESSMENT Not performed. TRABECULAR BONE ASSESSMENT TBS score: 1.227 Bone micro-architecture: Degraded (< or = 1.230) IMPRESSION: THE LOWEST T-SCORE IS -1.0 IN THE RIGHT HIP 1) DIAGNOSIS (based on BMD alone): NORMAL BONE DENSITY Caution: Medical conditions other than osteoporosis may cause low bone density, such as osteomalacia or renal osteodystrophy. Clinical correlation is necessary. 2) FRACTURE RISK (Based on TBS adjusted FRAX): 10-year absolute fracture risk: - major osteoporotic fracture = 15 % - hip fracture = 1.6 % - A diagnosis of Osteoporosis, a 10 year probability of hip fracture greater than or equal to 3% or a 10 year probability of any major osteoporosis-related fracture greater than or equal to 20% should be considered for treatment. - DXA scanner generated FRAX calculations may slightly differ from online FRAX calculations due to differences in software versions. - All recommendations and calculations are to be considered as guidelines and should not replace sound clinical judgement - Caution: Fracture risk may be increased independent of BMD in patients with corticosteroid use, age greater than 65 years, or a history of prior fragility fracture. RECOMMENDATIONS: Follow-up in 2 years or as clinically indicated. Patients that are taking corticosteroids, are transplant recipients or have hyperparathyroidism should have annual follow-up. Follow-up scans should always be done on the same machine for accurate comparison. FOR MORE INFORMATION ABOUT DIAGNOSIS AND TREATMENT: [facility] Center for Osteoporosis and Metabolic Bone Disease:? www.ccf.org/arthritis/os elton National Osteoporosis Foundation:? www.nof.org International Society of Clinical Densitometry www.iscd.org It Administrative Assistant: KENNETH Transcribe Date/Time: Mar 01 2024 9:10A Dictated by : ELHAM FREDERICK MD This examination was interpreted and the report reviewed and electronically signed by: ELHAM FREDERICK MD on Mar 01 2024 9:12AM EST [id number] -1.0 Normal [facility] -------- MISSY RICKS ([id number]) 1955 F Date Time Provider Department 02/29/24 CARRINGTON MANN During your visit today, we recorded the following information about you: Trinh Reeder LPN 02/29/2024 1:13 PM Signed ----- Message from Carrington Mann MD sent at 02/29/2024 11:26 AM EST ----- Normal pulmonary function testing. Negative for COPD. Recommend smoking cessation to help with cough. Let me know if she would like help with this. Trinh Reeder LPN 02/29/2024 1:15 PM Signed Phoned patient left message to return call and ask to speak to a nurse. Diana Garza RN 02/29/2024 4:20 PM Signed Patient notified of results and provider's instructions. Patient verbalizes understanding. Patient is going to start the nicotine patches that were previously ordered. CECY Merritt Christopher B, MD 03/01/2024 7:03 AM Signed Reviewed. Allergies As of Date: 02/29/2024 Noted Allergy Reaction CASHEW NUT 08/21/2006 2 - Rash BACTRIM (SULFAMETHOXAZOLE-TRIMET H*01/19/2016 17 - Myalgia Comments: Myalgias, photosensitivity and fever. LIPITOR (ATORVASTATIN) 01/11/2024 6 - Diarrhea PENICILLINS 03/16/2005 PREDNISONE 01/19/2016 5 - Intolerance Comments: Agitation, nervousness. Date Reviewed: 02/26/2024 Reviewed by: Adan Ruggiero RPFT - Fully Assessed Reason for Visit: Results [95] Prescriptions as of 03/06/2024 - nicotine (NICODERM) 21 mg/24 hr Apply 1 Patch as directed every 24 hours. - nicotine (NICODERM) 14 mg/24 hr Apply 1 Patch as directed every 24 hours. No smoking with patch. - nicotine (NICODERM) 7 mg/24 hr Apply 1 Patch as directed every 24 hours for 14 days. - lisinopril (ZESTRIL) 10 mg tablet Take 1 tablet by mouth once daily. - hydroCHLOROthiazide 25 mg tablet Take 1 tablet by mouth once daily. Meds Comments as of 05/19/2009: No current medications/reviewed May 19, 2009. Мария Yousif Lpn Problem List As Of Date 02/29/2024 Noted Resolved ESOPHAGEAL REFLUX [K21.9] 09/13/2006 THROMBOCYTOPENIA NOS [D69.6] 09/13/2006 Menopause [Z78.0] 08/10/2009 Family History of Colonic Polyps [Z83.719] 08/10/2009 Trigger middle finger of right hand [M65.331] 01/19/2016 Carpal tunnel syndrome, right [G56.01] 01/19/2016 Tobacco use [Z72.0] Obesity (BMI 30.0-34.9) [E66.811] Benign paroxysmal positional vertigo due to danielito*01/30/2020 Essential hypertension [I10] 01/11/2024 Hyperlipidemia, mixed [E78.2] 01/11/2024 Encounter Status:Closed by FIORELLA BURDICK on 03/06/24 [facility] CNOVon 02-26-2024 CNOV Office Visit (PULMWS ) -------- MISSY RICKS ([id number]) 1955 F Date Time Provider Department 02/26/24 9:30 AM BELL DIXON During your visit today, we recorded the following information about you: Pulse Respiration Blood pressure Weight 100/minute 18/minute 132/80 91.6 kg Height 1.695 m Bell Dixon APRN.[employer] 02/26/2024 11:23 AM Signed LUNG SCREENING VISIT PRIMARY CARE PHYSICIAN: Carrington Mann MD PULMONARY PROVIDER: none Results will be communicated via letter or electronic record if applicable. Visit Delivery: In Person Patient Visit Type: New to Screening Current or Ex-smoker? [Current Exam Type: baseline LDCT Number of Pack Years: 38 Current smoker (=0) REQUESTER: The referring provider advised the patient to have screening. HISTORY OF PRESENT ILLNESS: Missy Javed Ricks is a 68 year old Active smoker who presents for lung screening. Currently smoking 10 cigarettes daily Respiratory symptoms include: SOB: Yes with any activity, including showering Chest tightness: No Coughing: Yes: With mucus Clear, light yellow Hemoptysis: No Wheezing: No Fever/Chills: No Recent Respiratory Infection: No Unintentional weight loss: No Last 6 Encounter Wt Readings: Date: Wt: 02/26/2024 91.6 kg (202 lb) 01/26/2024 91.8 kg (202 lb 6.1 oz) 01/11/2024 93 kg (205 lb) 11/06/2023 89 kg (196 lb 3.4 oz) 10/17/2022 88 kg (194 lb) 09/19/2022 88.2 kg (194 lb 6.4 oz) Walks a mile every day. ECOG PERFORMANCE STATUS: 0- Fully active, able to carry on all pre-disease performance w/o restriction. Modified Medical Research [place] Dyspnea Scale (MMRC) I only get breathless with strenous exercise 0 PAST MEDICAL HISTORY Diagnosis Date BPPV (benign paroxysmal positional vertigo) Dysplasia of cervix, unspecified teenager GERD (gastroesophageal reflux disease) Hypertension Mixed hyperlipidemia Obesity (BMI 30.0-34.9) PMH - PAST MEDICAL HISTORY OF 1998 UTERINE FIBROIDS Tobacco use PAST SURGICAL HISTORY Procedure Laterality Date PAST SURGICAL HISTORY OF 1983 CRYOTHERAPY FOR DYSPLASIA ULTRASOUND PELVIS 05/08/98,06/02/93 FAMILY HISTORY Problem Relation Age of Onset Diabetes Mother dialysis, Hypertension Mother Hypertension Father Parkinson?s Disease Father other (alzheimers) Father Skin Cancer Sister Breast Cancer Sister 50 Hypertension Brother other (colon polyps) Brother Hypertension Brother Diabetes Maternal Grandmother Lung Cancer Paternal Uncle Lung Cancer Paternal Uncle Lung Cancer Paternal Uncle nicotine (NICODERM) 21 mg/24 hr Apply 1 Patch as directed every 24 hours. nicotine (NICODERM) 14 mg/24 hr Apply 1 Patch as directed every 24 hours. No smoking with patch. nicotine (NICODERM) 7 mg/24 hr Apply 1 Patch as directed every 24 hours for 14 days. lisinopril (ZESTRIL) 10 mg tablet Take 1 tablet by mouth once daily. hydroCHLOROthiazide 25 mg tablet Take 1 tablet by mouth once daily. ALLERGIES Allergen Reactions Cashew Nut Rash Bactrim [Sulfametho* Myalgia Myalgias, photosensitivity and fever. Lipitor [Atorvastat* Diarrhea Penicillins Prednisone Intolerance Agitation, nervousness. The medications and allergies were reviewed and reconciled for this patient and deemed current. Lung Cancer Risk Factors: 1.Tobacco Use: Start Age 22, Quit for 8 years total Quit Age: N/A, Average packs per day 1, Pack Years 40 2. Passive Smoke Exposure: Yes, as an Adult 3. Personal hx of malignancy: No, Type of Cancer: 4. Significant exposures (1 year or more of exposure): None, 5. Race: White 6. Education: Some College 7. BMI:Body mass index is 31.89 kg/m?. Patient-entered Height: 5'6 Patient-entered Weight: 202 pounds 8. COPD: No 9. Pneumonia in the past 5 years: No 10. Is there a history of lung cancer in a first degree relative? No 11. Is there a history of lung cancer in a non-first degree relative? Yes 12. Is there a history of any other cancer in a first degree relative? Yes Health Maintenance Immunization History Administered Date(s) Administered COVID-19 original vaccine, age 12+ yr, monovalent (PFIZER-TrupanionNTBesstech - PURPLE TOP) 03/11/2020 04/01/2020 influenza (IIV3) vaccine, age 6 mo - 64 yr, trivalent (AFLURIA, FLULAVAL, FLUVIRIN, FLUZONE) 12/18/2018 tetanus diphtheria pertussis (Tdap) vaccine, age 7+ yr (ADACEL, BOOSTRIX) 12/20/2015 Colonoscopy: Mammogram: 01/22/2024 DATA REVIEW I have directly visualized the testing documented: none Prior Imaging: Last CT/CTA Chest/Lungs No resulted procedures found. Last CT Chest - Impression Only No resulted procedures found. Last XR Chest - Impression Only XR CHEST PA/LAT Collected: 12/31/2015 2:21 PM (Final result) Impression: IMPRESSION: No acute radiographic abnormality. It Administrative Assistant: KENNETH Transcribe Date/Time: Jan 01 2016 12:18P... (more content not included)... Normal [facility] CNOVon 01-26-2024 CNOV Office Visit (FAMPWS ) -------- MISSY RICKS ([id number]) 1955 F Date Time Provider Department 01/26/24 9:20 AM CARRINGTON MANN FAMPWS During your visit today, we recorded the following information about you: Pulse Respiration Blood pressure Weight 92/minute 18/minute 106/78 91.8 kg Carrington Mann MD 01/26/2024 10:12 AM Signed Chief Complaint Patient presents with: BP Check HPI Missy Ricks is a 68 year old female who presents here today for Above Complaints.. HTN: Ms. Ricks indicates that she is feeling well and denies any symptoms referable to elevated blood pressure. Patient remembered to take her medication this morning. Specifically denies headache, chest pain, palpitations, dyspnea, and peripheral edema. Patient denies any side effects of her medication(s) and is compliant with their regimen. She does check BP's away from this office with average BP's in the 130/80's range. Last 3 Encounter BP Readings: Date: BP: 01/26/2024 106/78 01/11/2024 130/96[recheck[ 11/06/2023 126/86 Past medical history, appointments, medications, allergies reviewed. Previous Medical History PAST MEDICAL HISTORY Diagnosis Date BPPV (benign paroxysmal positional vertigo) Dysplasia of cervix, unspecified teenager GERD (gastroesophageal reflux disease) Hypertension Mixed hyperlipidemia Obesity (BMI 30.0-34.9) PMH - PAST MEDICAL HISTORY OF 1998 UTERINE FIBROIDS Tobacco use Previous Surgical History PAST SURGICAL HISTORY Procedure Laterality Date PAST SURGICAL HISTORY OF 1983 CRYOTHERAPY FOR DYSPLASIA ULTRASOUND PELVIS 05/08/98,06/02/93 Family History FAMILY HISTORY Problem Relation Age of Onset Diabetes Mother dialysis, Hypertension Mother Hypertension Father Parkinson?s Disease Father other (alzheimers) Father Skin Cancer Sister Hypertension Brother other (colon polyps) Brother Hypertension Brother Diabetes Maternal Grandmother Breast Cancer Sister 50 Patient Allergies ALLERGIES Allergen Reactions Cashew Nut Rash Bactrim [Sulfametho* Myalgia Myalgias, photosensitivity and fever. Lipitor [Atorvastat* Diarrhea Penicillins Prednisone Intolerance Agitation, nervousness. Current Medications Current Outpatient Medications on File Prior to Visit Medication Sig nicotine (NICODERM) 21 mg/24 hr Apply 1 Patch as directed every 24 hours. nicotine (NICODERM) 14 mg/24 hr Apply 1 Patch as directed every 24 hours. No smoking with patch. nicotine (NICODERM) 7 mg/24 hr Apply 1 Patch as directed every 24 hours for 14 days. lisinopril (ZESTRIL) 10 mg tablet Take 1 tablet by mouth once daily. hydroCHLOROthiazide 25 mg tablet Take 1 tablet by mouth once daily. No current facility-administered medications on file prior to visit. Social History Social History Tobacco Use Smoking status: Every Day Current packs/day: 0.00 Average packs/day: 1 pack/day for 35.0 years (35.0 ttl pk-yrs) Types: Cigarettes Start date: 12/27/1980 Last attempt to quit: 12/28/2015 Years since quittin.0 Smokeless tobacco: Never Tobacco comments: used to smoke 1 pack per day Vaping Use Vaping status: Never Used Substance Use Topics Alcohol use: No Drug use: No Review of Symptoms REVIEW OF SYSTEMS GENERAL: No weight loss, malaise or fevers RESPIRATORY: Negative for cough, hemoptysis, wheezing, COPD, dyspnea or shortness of breath CARDIOVASCULAR: Negative for chest pain, leg swelling, hypertension, CHF or palpitations GI: No nausea, vomiting, or diarrhea SKIN: Negative for lesions, rash, and itching EXAM: BP 106/78 Pulse 92 Resp 18 Wt 91.8 kg (202 lb 6.1 oz) LMP 12/11/2006 SpO2 98% BMI 30.77 kg/m? General Appearance: Well appearing, alert, in no acute distress, well-hydrated, well nourished.. Skin: Skin color, texture, turgor normal, no suspicious rashes or lesions. Lungs: Lungs clear to auscultation. No wheezing, rhonchi, rales.. Heart: RRR without murmur, gallop, or rubs. No ectopy. Abdomen: Normal abdominal exam, Abdomen soft, non-tender. Bowel sounds normal. No masses, organomegaly. Extremities: No deformities, edema, skin discoloration, clubbing or cyanosis. Good capillary refill. . Health Maintenance List Depression Screening Never done Lung Cancer Screening Never done Bone Density Screening Never done Advance Directive Discussion Never done BP Controlled (<130/80) due on 10/18/2023 Influenza Vaccine(1) due on 09/16/2024 Anxiety Screening due on 01/10/2025 Shingrix Vaccine(1 of 2) due on 01/10/2025 Covid-19 Vaccine(3 - season) due on 01/10/2025 Pneumococcal Vaccine: 65+(1 of 2 - PCV) due on 01/10/2025 Annual PCP Team Chronic Disease Visit due on 01/10/2025 Mammogram Screening due on 01/18/2025 Colorectal Cancer Screening due on 11/11/2025 DTaP,Tdap,Td Vaccine(2 - Td or Tdap) due on more content not included)... Normal [facility] DESIREENon 01-22-2024 CNPN Telephone (FAMPWS) -------- MISSY RICKS ([id number]) 1955 F Date Time Provider Department 01/22/24 OLGA MIJARES [facility] During your visit today, we recorded the following information about you: Olga Mijares APRN.[employer] 01/22/2024 8:40 AM Signed Please let patient know her mammogram is negative. Patient should continue with annual screenings. Rishi Salinas MA 01/22/2024 8:46 AM Signed Pt notified and verbalized understanding Rishi Salinas MA Allergies As of Date: 01/22/2024 Noted Allergy Reaction CASHEW NUT 08/21/2006 2 - Rash BACTRIM (SULFAMETHOXAZOLE-TRIMET H*01/19/2016 17 - Myalgia Comments: Myalgias, photosensitivity and fever. LIPITOR (ATORVASTATIN) 01/11/2024 6 - Diarrhea PENICILLINS 03/16/2005 PREDNISONE 01/19/2016 5 - Intolerance Comments: Agitation, nervousness. Date Reviewed: 01/11/2024 Reviewed by: Ayesha Carson LPN - Fully Assessed Reason for Visit: Results [95] Prescriptions as of 01/22/2024 - nicotine (NICODERM) 21 mg/24 hr Apply 1 Patch as directed every 24 hours. - nicotine (NICODERM) 14 mg/24 hr Apply 1 Patch as directed every 24 hours. No smoking with patch. - nicotine (NICODERM) 7 mg/24 hr Apply 1 Patch as directed every 24 hours for 14 days. - lisinopril (ZESTRIL) 10 mg tablet Take 1 tablet by mouth once daily. - hydroCHLOROthiazide 25 mg tablet Take 1 tablet by mouth once daily. Meds Comments as of 05/19/2009: No current medications/reviewed May 19, 2009. Мария Yousif Vp Integrity Problem List As Of Date 01/22/2024 Noted Resolved ESOPHAGEAL REFLUX [K21.9] 09/13/2006 THROMBOCYTOPENIA NOS [D69.6] 09/13/2006 Menopause [Z78.0] 08/10/2009 Family History of Colonic Polyps [Z83.719] 08/10/2009 Trigger middle finger of right hand [M65.331] 01/19/2016 Carpal tunnel syndrome, right [G56.01] 01/19/2016 Tobacco use [Z72.0] Obesity (BMI 30.0-34.9) [E66.811] Benign paroxysmal positional vertigo due to danielito*01/30/2020 Essential hypertension [I10] 01/11/2024 Hyperlipidemia, mixed [E78.2] 01/11/2024 Encounter Status:Closed by WORKMAN RISHI TEMPLETON on 01/22/24 Normal [facility] MICKEY SCREENING W TOMOon 01-18 MICKEY SCREENING W MALCOLM * * *Final Report* * * DATE OF EXAM: Jan 19 2024 9:06AM [facility] [id number] - MICKEY SCREENING W MALCOLM / PROCEDURE REASON: Encounter for screening mammogram for breast cancer * * * * Physician Interpretation * * * * RESULT: [address] [address] [place] [address] HISTORY: Patient is 68 years old and is seen for screening and is asymptomatic in both breasts. Patient states no personal history of breast cancer. Patient states no personal history of other cancers. COMPARISON STUDIES: The present examination has been compared to prior imaging studies dated 04/13/2016 (mammogram), 04/14/2017 (mammogram) and 01/01/2021 (mammogram). MAMMOGRAM TECHNIQUE: The study was acquired using full field digital technology and interpreted from soft copy. Digital Breast Tomosynthesis (DBT) images were obtained and used to assist in the interpretation of this examination. Computer-aided detection was utilized by the radiologist in the interpretation of this examination. MAMMOGRAM FINDINGS: The breasts are heterogeneously dense, which may obscure small masses. No suspicious masses, calcifications or other abnormalities are seen in either breast. There are no significant changes from the prior study. IMPRESSION: There is no mammographic evidence of malignancy in either breast. Routine screening mammogram is recommended. Annual mammogram will be due in 1 year. BI-RADS Category 1: Negative RISK: Based on the Tyrer-Cuzick (TC) risk assessment model, this patient has a 13.8% lifetime risk of developing breast cancer, meaning they are at average risk for developing breast cancer. However, this is only an estimate based on available history provided on the patient's questionnaire. We encourage all patients to talk with their providers about these results, further recommendations for managing breast health, and appropriate supplemental screening options if the patient has dense breast tissue. Interpreting Radiologist: Priscila Wilson M.D. Electronically signed on: 01/22/2024 It Administrative Assistant: KOSTAS Transcribe Date/Time: Jan 19 2024 8:57A Dictated by: PRISCILA WILSON MD This examination was interpreted and the report reviewed and electronically signed by: PRISCILA WILSON MD on Jan 22 2024 7:59AM EST [id number] Normal [facility] -------- MISSY RICKS ([id number]) 1955 F Date Time Provider Department 01/12/24 CARRINGTON MANN During your visit today, we recorded the following information about you: Gwendolyn Byrne LPN 01/12/2024 11:26 AM Signed ----- Message from Carrington Mann MD sent at 01/12/2024 11:17 AM EDT ----- Normal labs aside from high cholesterol. Based on age and risk factors, patient is moderate risk for heart attack or stroke in the next 10 years. Recommend moderate intensity statin daily and recheck labs in 3 months. Most common side effect: muscle aches. She has been in atorvastatin in the past, would recommend trial of Crestor instead. If agreeable, will send rx to requested pharmacy. The 10-year ASCVD risk score (Vijay CONTRERAS, et al., 2019) is: 18.6% Values used to calculate the score: Age: 68 years Sex: Female Is Non- : No Diabetic: No Tobacco smoker: Yes Systolic Blood Pressure: 130 mmHg Is BP treated: Yes HDL Cholesterol: 38 mg/dL Total Cholesterol: 242 mg/dL Gwendolyn Byrne LPN 01/12/2024 11:27 AM Signed Left a message for pt to call the office and ask to speak to a nurse. DESTINEY Rodriguez Kathryn, MA 01/15/2024 10:19 AM Signed Message left with pt to have pt call back. DANIELLE Valenzuela Rilee, MA 01/16/2024 10:22 AM Signed [employer] message sent to pt asking for a return call back regarding her recent lab results. Notified to speak with Triage Nurse. DANIELLE Torres Michelle, LPN 01/16/2024 3:02 PM Signed Patient read Insync message. Letter sent. Ramya Johnson LPN Allergies As of Date: 01/12/2024 Noted Allergy Reaction CASHEW NUT 08/21/2006 2 - Rash BACTRIM (SULFAMETHOXAZOLE-TRIMET H*01/19/2016 17 - Myalgia Comments: Myalgias, photosensitivity and fever. LIPITOR (ATORVASTATIN) 01/11/2024 6 - Diarrhea PENICILLINS 03/16/2005 PREDNISONE 01/19/2016 5 - Intolerance Comments: Agitation, nervousness. Date Reviewed: 01/11/2024 Reviewed by: Ayesha Carson LPN - Fully Assessed Reason for Visit: Results [95] Prescriptions as of 01/16/2024 - nicotine (NICODERM) 21 mg/24 hr Apply 1 Patch as directed every 24 hours. - nicotine (NICODERM) 14 mg/24 hr Apply 1 Patch as directed every 24 hours. No smoking with patch. - nicotine (NICODERM) 7 mg/24 hr Apply 1 Patch as directed every 24 hours for 14 days. - lisinopril (ZESTRIL) 10 mg tablet Take 1 tablet by mouth once daily. - hydroCHLOROthiazide 25 mg tablet Take 1 tablet by mouth once daily. Meds Comments as of 05/19/2009: No current medications/reviewed May 19, 2009. Мария Yousif Vp Integrity Problem List As Of Date 01/12/2024 Noted Resolved ESOPHAGEAL REFLUX [K21.9] 09/13/2006 THROMBOCYTOPENIA NOS [D69.6] 09/13/2006 Menopause [Z78.0] 08/10/2009 Family History of Colonic Polyps [Z83.719] 08/10/2009 Trigger middle finger of right hand [M65.331] 01/19/2016 Carpal tunnel syndrome, right [G56.01] 01/19/2016 Tobacco use [Z72.0] Obesity (BMI 30.0-34.9) [E66.811] Benign paroxysmal positional vertigo due to danielito*01/30/2020 Essential hypertension [I10] 01/11/2024 Hyperlipidemia, mixed [E78.2] 01/11/2024 Letter Text Encounter Status:Closed by RAMYA JOHNSON on 01/16/24 Normal [facility] HbA1c (Bld)on 01-12-2024 Average glucose Estimated from glycated hemoglobin (Bld) [Mass/Vol] 103 mg/dL [facility] Comment on above: eAG: (Estimated aver age glucose) is a calculated value from HgbA1c and is reimbursement representative of the average blood glucose level in the last 2-3 month period. HbA1c (Bld) [Mass fraction] 5.2 % 4.3 - 5.6 % [facility] Comment on above: [place] Diabetes As sociation guidelines indicate that patients with HgbA1c in the range 5.7-6.4% are at increased risk for development of diabetes, and intervention by lifestyle modification may be beneficial. HgbA1c greater or equal to 6.5% is considered diagnostic of diabetes. [facility] CBC W Auto Differential pane l (Bld)on 01-11-2024 Basophils (Bld) [#/Vol] 0.05 10*3/uL NINF [facility] Basophils/100 WBC (Bld) 1.1 % [facility] Differential cell count method Nom (Bld) Auto [facility] Eosinophils (Bld) [#/Vol] 0.08 10*3/uL [facility] Eosinophils/100 WBC (Bld) 1.7 % [facility] Erythrocyte distribution width (RBC) [Ratio] 12.7 % 11.5 - 15.0 % [facility] Hematocrit (Bld) [Volume fraction] 38.3 % 36.0 - 46.0 % [facility] Hemoglobin (Bld) [Mass/Vol] 12.5 g/dL 11.5 - 15.5 g/dL [facility] Immature granulocytes (Bld) [#/Vol] [facility] Immature granulocytes/100 WBC (Bld) 0.2 % [facility] Lymphocytes (Bld) [#/Vol] 1.98 10*3/uL [facility] Lymphocytes/100 WBC (Bld) 43.0 % [facility] MCH (RBC) [Entitic mass] 30.3 pg 26.0 - 34.[address] [facility] MCHC (RBC) [Mass/Vol] 32.6 g/dL 30.5 - 36.0 g/dL [facility] MCV (RBC) [Entitic vol] 93.0 fL 80.0 - 100.[address] [facility] Monocytes (Bld) [#/Vol] 0.28 10*3/uL [facility] Monocytes/100 WBC (Bld) 6.1 % [facility] Neutrophils (Bld) [#/Vol] 2.21 10*3/uL [facility] Neutrophils/100 WBC (Bld) 47.9 % [facility] Nucleated RBC (Bld) [#/Vol] [facility] Nucleated RBC/100 WBC (Bld) [Ratio] 0.0 % /[address] [facility] Platelet mean volume (Bld) [Entitic vol] 11.2 fL 9.0 - 12.[address] [facility] Platelets (Bld) [#/Vol] 194 10*3/uL [facility] RBC (Bld) [#/Vol] 4.12 10*6/uL 3.90 - 5.2 0 m/uL [facility] WBC (Bld) [#/Vol] 4.61 10*3/uL [facility] Basophils (Bld) [#/Vol] 0.05 10*3/uL Normal <0.11 [facility] Comment on above: Order Comment: Speci men Type: BLOOD SPECIMENOrdering Facility: [facility] Address: [address] [place] [address] Performed By: #### 5 7021-8 ####[facility] LABCLIA [id number] [facility] [place] [address] [place] Basophils/100 WBC (Bld) 1.1 % Normal [facility] Comment on above: Order Comment: Speci men Type: BLOOD SPECIMENOrdering Facility: [facility] Address: [address] [place] [address] Performed By: #### 5 7021-8 ####[facility] LABCLIA [id number] [place] [address] [place] Differential cell count method Nom (Bld) Auto Normal [facility] Comment on above: Order Comment: Speci men Type: BLOOD SPECIMENOrdering Facility: [facility] Address: [address] [place] [address] Performed By: #### 5 7021-8 ####[facility] LABCLIA [id number] [place] [address] [place] Eosinophils (Bld) [#/Vol] 0.08 10*3/uL Normal <0.46 [facility] Comment on above: Order Comment: Speci men Type: BLOOD SPECIMENOrdering Facility: [facility] Address: [address] [place] [address] Performed By: #### 5 7021-8 ####[facility] LABCLIA [id number] [place] [address] [place] Eosinophils/100 WBC (Bld) 1.7 % Normal [facility] Comment on above: Order Comment: Speci men Type: BLOOD SPECIMENOrdering Facility: [facility] Address: [address] [place] [address] Performed By: #### 5 7021-8 ####[facility] LABCLIA [id number] [place] [address] [place] Erythrocyte distribution width (RBC) [Ratio] 12.7 % Normal 11.5-15.0 [facility] Comment on above: Order Comment: Speci men Type: BLOOD SPECIMENOrdering Facility: [facility] Address: [address] [place] [address] Performed By: #### 5 7021-8 ####[facility] LABIA [id number] [place] [address] [place] Hematocrit (Bld) [Volume fraction] 38.3 % Normal 36.0-46.0 [facility] Comment on above: Order Comment: Speci men Type: BLOOD SPECIMENOrdering Facility: [facility] Address: [address] [place] [address] Performed By: #### 5 7021-8 ####[facility] LABIA [id number] [place] [address] [place] Hemoglobin (Bld) [Mass/Vol] 12.5 g/dL Normal 11.5-15.5 [facility] Comment on above: Order Comment: Speci men Type: BLOOD SPECIMENOrdering Facility: [facility] Address: [address] [place] [address] Performed By: #### 5 7021-8 ####[facility] LABIA [id number] [place] [address] [place] Immature granulocytes (Bld) [#/Vol] 10*3/uL Normal <0.10 [facility] Comment on above: Order Comment: Speci men Type: BLOOD SPECIMENOrdering Facility: [facility] Address: [address] [place] [address] Performed By: #### 5 7021-8 ####[facility] LABIA [id number] [place] [address] [place] Immature granulocytes/100 WBC (Bld) 0.2 % Normal [facility] Comment on above: Order Comment: Speci men Type: BLOOD SPECIMENOrdering Facility: [facility] Address: [address] [place] [address] Performed By: #### 5 7021-8 ####[facility] LABCLIA [id number] [place] [address] [place] Lymphocytes (Bld) [#/Vol] 1.98 10*3/uL Normal 1.00-4.00 [facility] Comment on above: Order Comment: Speci men Type: BLOOD SPECIMENOrdering Facility: [facility] Address: [address] [place] [address] Performed By: #### 5 7021-8 ####[facility] LABCLIA [id number] [place] [address] [place] Lymphocytes/100 WBC (Bld) 43.0 % Normal [facility] Comment on above: Order Comment: Speci men Type: BLOOD SPECIMENOrdering Facility: [facility] Address: [address] [place] [address] Performed By: #### 5 7021-8 ####[facility] LABCLIA [id number] [place] [address] [place] MCH (RBC) [Entitic mass] 30.3 pg Normal 26.0-34.0 [facility] Comment on above: Order Comment: Speci men Type: BLOOD SPECIMENOrdering Facility: [facility] Address: [address] [place] [address] Performed By: #### 5 7021-8 ####[facility] LABCLIA [id number] [place] [address] [place] MCHC (RBC) [Mass/Vol] 32.6 g/dL Normal 30.5-36.0 [facility] Comment on above: Order Comment: Speci men Type: BLOOD SPECIMENOrdering Facility: [facility] Address: [address] [place], [place] [address] Performed By: #### 5 7021-8 ####[facility] LABCLIA [id number] [place] [address] [place] MCV (RBC) [Entitic vol] 93.0 fL Normal 80.0-100.0 [facility] Comment on above: Order Comment: Speci men Type: BLOOD SPECIMENOrdering Facility: [facility] Address: [address] [place] [address] Performed By: #### 5 7021-8 ####[facility] LABCLIA [id number] [place] [address] [place] Monocytes (Bld) [#/Vol] 0.28 10*3/uL Normal <0.87 [facility] Comment on above: Order Comment: Speci men Type: BLOOD SPECIMENOrdering Facility: [facility] Address: [address] [place] [address] Performed By: #### 5 7021-8 ####[facility] LABCLIA [id number] [place] [address] [place] Monocytes/100 WBC (Bld) 6.1 % Normal [facility] Comment on above: Order Comment: Speci men Type: BLOOD SPECIMENOrdering Facility: [facility] Address: [address] [place] [address] Performed By: #### 5 7021-8 ####[facility] LABCLIA [id number] [place] [address] [place] Neutrophils (Bld) [#/Vol] 2.21 10*3/uL Normal 1.45-7.50 [facility] Comment on above: Order Comment: Speci men Type: BLOOD SPECIMENOrdering Facility: [facility] Address: [address] [place] [address] Performed By: #### 5 7021-8 ####[facility] LABCLIA [id number] [id number] [address] [place] Neutrophils/100 WBC (Bld) 47.9 % Normal [facility] Comment on above: Order Comment: Speci men Type: BLOOD SPECIMENOrdering Facility: [facility] Address: [address] [place] [address] Performed By: #### 5 7021-8 ####[facility] LABCLIA [id number] [place] [address] [place] Nucleated RBC (Bld) [#/Vol] 10*3/uL Normal <0.01 [facility] Comment on above: Order Comment: Speci men Type: BLOOD SPECIMENOrdering Facility: [facility] Address: [address] [place] [address] Performed By: #### 5 7021-8 ####[facility] LABCLIA [id number] [place] [address] [place] Nucleated RBC/100 WBC (Bld) [Ratio] 0.0 /100 WBC Normal [facility] Comment on above: Order Comment: Speci men Type: BLOOD SPECIMENOrdering Facility: [facility] Address: [address] [place] [address] Performed By: #### 5 7021-8 ####[facility] LABCLIA [id number] [place] [address] [place] Platelet mean volume (Bld) [Entitic vol] 11.2 fL Normal 9.0-12.7 [facility] Comment on above: Order Comment: Speci men Type: BLOOD SPECIMENOrdering Facility: [facility] Address: [address] [place] [address] Performed By: #### 5 7021-8 ####[facility] LABCLIA [id number] [place] [address] [place] Platelets (Bld) [#/Vol] 194 10*3/uL Normal 150-400 [facility] Comment on above: Order Comment: Speci men Type: BLOOD SPECIMENOrdering Facility: [facility] Address: [address] [place] [address] Performed By: #### 5 7021-8 ####[facility] LABCLIA [id number] [place] [address] [place] RBC (Bld) [#/Vol] 4.12 10*6/uL Normal 3.90-5.20 [facility] Comment on above: Order Comment: Speci men Type: BLOOD SPECIMENOrdering Facility: [facility] Address: [address] [place] [address] Performed By: #### 5 7021-8 ####[facility] LABIA [id number] [place] [address] [place] WBC (Bld) [#/Vol] 4.61 10*3/uL Normal 3.70-11.00 [facility] Comment on above: Order Comment: Speci men Type: BLOOD SPECIMENOrdering Facility: [facility] Address: [address] [place] [address] Performed By: #### 5 7021-8 ####[facility] LABIA [id number] [place] [address] [place] CNCOon 01-11-2024 CNCO Letter Text Normal [facility] CNOVon 01-11-2024 CNOV Office Visit (FAMPWS ) -------- MISSY RICKS ([id number]) 1955 F Date Time Provider Department 01/11/24 12:20 PM CARRINGTON MANN FAMPWS During your visit today, we recorded the following information about you: Pulse Blood pressure Weight 95/minute 130/96 93 kg Carrington Mann MD 01/18/2024 11:00 AM Signed Chief Complaint Patient presents with: Follow Up HPI Missy Ricks is a 68 year old female who presents here today for routine check up. Patient has been in good health without recent hospitalizations, ER visits, or falls. Patient complaining of persistent productive with yellow or white sputum in the last 3-4 months. Treating with [place] cough drops which does help. Denies fever/chills, chest pain, chest congestion, SOB, wheezing. Smoking 1/2-1 pack per day for about 35 years. Thinking about quitting and would like rx for patches. Patient states that she stopped taking her lipitor about 6 months ago because of diarrhea. Symptoms resolved after cessation. States that she has been trying to adhere to low sodium and low cholesterol diet. Walking 3 times per week for exercise. Due for repeat labs. If still elevated, would like to try alternative rx. HTN: Ms. Ricks indicates that she is feeling well and denies any symptoms referable to elevated blood pressure. Thinks she forgot her medication this morning. Specifically denies headache, chest pain, palpitations, dyspnea, and peripheral edema. Patient denies any side effects of her medication(s) and is compliant with their regimen. She does check BP's away from this office with average BP's in the 110/80's range. Last 3 Encounter BP Readings: Date: BP: 01/11/2024 140/90 11/06/2023 126/86 10/17/2022 122/80 Denies recent GERD or vertigo symptoms recently. Agreeable to lung cancer screening and DXA scan. Mammogram already ordered and needs completed. Cologuard negative last year. Refusing vaccinations today. Past medical history, appointments, medications, allergies reviewed. Previous Medical History PAST MEDICAL HISTORY Diagnosis Date BPPV (benign paroxysmal positional vertigo) Dysplasia of cervix, unspecified teenager GERD (gastroesophageal reflux disease) Hypertension Mixed hyperlipidemia Obesity (BMI 30.0-34.9) PMH - PAST MEDICAL HISTORY OF 1998 UTERINE FIBROIDS Tobacco use Previous Surgical History PAST SURGICAL HISTORY Procedure Laterality Date PAST SURGICAL HISTORY OF 1983 CRYOTHERAPY FOR DYSPLASIA ULTRASOUND PELVIS 05/08/98,06/02/93 Family History FAMILY HISTORY Problem Relation Age of Onset Diabetes Mother dialysis, Hypertension Mother Hypertension Father Parkinson?s Disease Father other (alzheimers) Father Skin Cancer Sister Hypertension Brother other (colon polyps) Brother Hypertension Brother Diabetes Maternal Grandmother Breast Cancer Sister 50 Patient Allergies ALLERGIES Allergen Reactions Cashew Nut Rash Bactrim [Sulfametho* Myalgia Myalgias, photosensitivity and fever. Penicillins Prednisone Intolerance Agitation, nervousness. Current Medications Current Outpatient Medications on File Prior to Visit Medication Sig atorvastatin (LIPITOR) 20 mg tablet Take 1 tablet by mouth daily at bedtime. For cholesterol. hydroCHLOROthiazide 25 mg tablet Take 1 tablet by mouth once daily. lisinopril (ZESTRIL) 10 mg tablet Take 1 tablet by mouth once daily. No current facility-administered medications on file prior to visit. Social History Social History Tobacco Use Smoking status: Every Day Current packs/day: 0.00 Average packs/day: 1 pack/day for 35.0 years (35.0 ttl pk-yrs) Types: Cigarettes Start date: 12/27/1980 Last attempt to quit: 12/28/2015 Years since quittin.0 Smokeless tobacco: Never Tobacco comments: used to smoke 1 pack per day Vaping Use Vaping status: Never Used Substance Use Topics Alcohol use: No Drug use: No Review of Symptoms REVIEW OF SYSTEMS GENERAL: No weight loss, malaise or fevers HEENT: Negative for frequent or significant headaches, No changes in hearing or vision, no nose bleeds or other nasal problems NECK: Negative for lumps, goiter, pain and significant neck swelling RESPIRATORY: See HPI CARDIOVASCULAR: Negative for chest pain, leg swelling, hypertension, CHF or palpitations GI: No nausea, vomiting, or diarrhea : No history of dysuria, frequency or incontinence RESOURCE DEVELOPMENT DIRECTOR: Negative for abnormal vaginal bleeding, abnormal vaginal discharge MUSCULOSKELETAL: Negative for joint pain or swelling, back pain or muscle pain SKIN: Negative for lesions, rash, and itching PSYCH: Negative for sleep disturbance, mood disorder and recent psychosocial stressors HEMATOLOGY/LYMPHOLOGY: Negative for prolonged bleeding, bruising easily or swollen nodes ENDOCRINE: Negative for cold or heat intolerance (more content not included)... Normal [facility] Comprehensive metabolic 2000 panelon 01-11-2024 Albumin [Mass/Vol] 4.5 g/dL 3.9 - 4.9 g/dL [facility] ALP [Catalytic activity/Vol] 86 U/L 34 - 123 U/L [facility] ALT [Catalytic activity/Vol] 15 U/L 7 - 38 U/L [facility] Anion gap [Moles/Vol] 11 mmol/L 8 - 15 mmol/L [facility] AST [Catalytic activity/Vol] 24 U/L 13 - 35 U/L [facility] Bilirubin [Mass/Vol] 0.2 mg/dL 0.2 - 1 .3 mg/dL [facility] Calcium [Mass/Vol] 10.1 mg/dL 8.5 - 10. 2 mg/dL [facility] Chloride [Moles/Vol] 105 mmol/L 98 - 10 7 mmol/L [facility] CO2 [Moles/Vol] 25 mmol/L 22 - 30 mmol/L [facility] Creatinine [Mass/Vol] 0.65 mg/dL 0.58 - 0.96 mg/dL [facility] GFR/1.73 sq M.predicted among non-blacks MDRD (S/P/Bld) [Vol rate/Area] 97 mL/min/{1.73_m2} - PINF [facility] Comment on above: Estimated Glomerular Filtration Rate (eGFR) is calculated using the 2020 CKD-EPI creatinine equation. This equation utilizes serum creatinine, sex, and age as parameters. The creatinine assay has traceable calibration to isotope dilution-mass spectrometry. Refer to KDIGO guidelines for clinical interpretation. In patients with unstable renal function, e.g. those with acute kidney injury, the eGFR may not accurately reflect actual GFR. Glucose [Mass/Vol] 96 mg/dL 74 - 99 mg/dL [facility] Comment on above: The [place] Diabete s Association (ADA) provides guidance for cutoff values for fasting glucose and random glucose. The ADA defines fasting as no caloric intake for at least 8 hours. Fasting plasma glucose results between 100 to 125 mg/dL indicate increased risk for diabetes (prediabetes). Fasting plasma glucose results greater than or equal to 126 mg/dL meet the criteria for diagnosis of diabetes. In the absence of unequivocal hyperglycemia, results should be confirmed by repeat testing. In a patient with classic symptoms of hyperglycemia or hyperglycemic crisis, random plasma glucose results greater than or equal to 200 mg/dL meet the criteria for diagnosis of diabetes. Reference: Standards of Medical Care in Diabetes 2016, [place] Diabetes Association. Diabetes Care. 2016.39(Suppl 1). Interpretation and review of laboratory results Normal [facility] Potassium [Moles/Vol] 4.4 mmol/L 3.7 - 5.1 mmol/L [facility] Protein [Mass/Vol] 7.1 g/dL 6.3 - 8.0 g/dL [facility] Sodium [Moles/Vol] 141 mmol/L 136 - 144 mmol/L [facility] Urea nitrogen [Mass/Vol] 13 mg/dL 7 - 21 mg/dL [facility] Albumin [Mass/Vol] 4.5 g/dL Normal 3.9-4.9 [facility] Comment on above: Order Comment: Speci men Type: BLOOD SPECIMENOrdering Facility: [facility] Address: [address] [place] [address] Performed By: #### 2 4323-8, LIPNF, 3016-3 ####[facility] LABCLIA [id number] [place] [address] [place] ALP [Catalytic activity/Vol] 86 U/L Normal 34-123 [facility] Comment on above: Order Comment: Speci men Type: BLOOD SPECIMENOrdering Facility: [facility] Address: [address] [place] [address] Performed By: #### 2 4323-8, LIPNF, 6-3 ####[facility] LABCLIA [id number] [place] [address] [place] ALT [Catalytic activity/Vol] 15 U/L Normal 7-38 [facility] Comment on above: Order Comment: Speci men Type: BLOOD SPECIMENOrdering Facility: [facility] Address: [address] [place] [address] Performed By: #### 2 4323-8, LIPNF, 3016-3 ####[facility] LABCLIA [id number] [place] [id number] [place] Anion gap [Moles/Vol] 11 mmol/L Normal 8-15 [facility] Comment on above: Order Comment: Speci men Type: BLOOD SPECIMENOrdering Facility: [facility] Address: [address] [place] [address] Performed By: #### 2 4323-8, LIPNF, 3016-3 ####[facility] LABCLIA [id number] [place] [id number] [place] AST [Catalytic activity/Vol] 24 U/L Normal 13-35 [facility] Comment on above: Order Comment: Speci men Type: BLOOD SPECIMENOrdering Facility: [facility] Address: [address] [place] [address] Performed By: #### 2 4323-8, LIPNF, 6-3 ####[facility] LABCLIA [id number] [place] [address] [place] Bilirubin [Mass/Vol] 0.2 mg/dL Normal 0.2-1.3 [facility] Comment on above: Order Comment: Speci men Type: BLOOD SPECIMENOrdering Facility: [facility] Address: [address] [place] [address] Performed By: #### 2 4323-8, LIPNF, 3015-3 ####[facility] LABCLIA [id number] [place] [address] [place] Calcium [Mass/Vol] 10.1 mg/dL Normal 8.5-10.2 [facility] Comment on above: Order Comment: Speci men Type: BLOOD SPECIMENOrdering Facility: [facility] Address: [address] [place] [address] Performed By: #### 2 4323-8, LIPNF, 6-3 ####[facility] LABCLIA [id number] [place] [id number] [place] Chloride [Moles/Vol] 105 mmol/L Normal 98-107 [facility] Comment on above: Order Comment: Speci men Type: BLOOD SPECIMENOrdering Facility: [facility] Address: [address] [place] [address] Performed By: #### 2 4323-8, LIPNF, 6-3 ####[facility] LABCLIA [id number] [place] [id number] [place] CO2 [Moles/Vol] 25 mmol/L Normal 22-30 [facility] Comment on above: Order Comment: Speci men Type: BLOOD SPECIMENOrdering Facility: [facility] Address: [address] [place] [address] Performed By: #### 2 4323-8, LIPHERMILO, 3015-3 ####[facility] LABCLIA [id number] [place] [address] [place] Creatinine [Mass/Vol] 0.65 mg/dL Normal 0.58-0.96 [facility] Comment on above: Order Comment: Speci men Type: BLOOD SPECIMENOrdering Facility: [facility] Address: [address] [place] [address] Performed By: #### 2 4323-8, TRISH, 3015-3 ####[facility] LABCLIA [id number] [place] [address] [place] Creatinine and Glomerular filtration rate.predicted panel (S/P/Bld) 97 mL/min/1.73m??? Normal >=60 [facility] Comment on above: Order Comment: Speci men Type: BLOOD SPECIMENOrdering Facility: [facility] Address: [address] [place] [address] Result Comment: Neda mated Glomerular Filtration Rate (eGFR) is calculated using the 2020 CKD-EPI creatinine equation. This equation utilizes serum creatinine, sex, and age as parameters. The creatinine assay has traceable calibration to isotope dilution-mass spectrometry. Refer to KDIGO guidelines for clinical interpretation. In patients with unstable renal function, e.g. those with acute kidney injury, the eGFR may not accurately reflect actual GFR. Performed By: #### 2 4323-8, LIPHERMILO, 3015-3 ####[facility] LABCLIA [id number] [place] [address] [place] Glucose [Mass/Vol] 96 mg/dL Normal 74-99 [facility] Comment on above: Order Comment: Speci men Type: BLOOD SPECIMENOrdering Facility: [facility] Address: [address] [place] [address] Result Comment: The [place] Diabetes Association (ADA) provides guidance for cutoff values for fasting glucose and random glucose. The ADA defines fasting as no caloric intake for at least 8 hours. Fasting plasma glucose results between 100 to 125 mg/dL indicate increased risk for diabetes (prediabetes). Fasting plasma glucose results greater than or equal to 126 mg/dL meet the criteria for diagnosis of diabetes. In the absence of unequivocal hyperglycemia, results should be confirmed by repeat testing. In a patient with classic symptoms of hyperglycemia or hyperglycemic crisis, random plasma glucose results greater than or equal to 200 mg/dL meet the criteria for diagnosis of diabetes. Reference: Standards of Medical Care in Diabetes 2016, [place] Diabetes Association. Diabetes Care. 2016.39(Suppl 1). Performed By: #### 2 4323-8, TRISH, 3015-3 ####[facility] LABCLIA [id number] [place] [address] [place] Potassium [Moles/Vol] 4.4 mmol/L Normal 3.7-5.1 [facility] Comment on above: Order Comment: Speci men Type: BLOOD SPECIMENOrdering Facility: [facility] Address: [address] [place] [address] Performed By: #### 2 4323-8, TRISH, 3015-3 ####[facility] LABCLIA [id number] [place] [address] [place] Protein [Mass/Vol] 7.1 g/dL Normal 6.3-8.0 [facility] Comment on above: Order Comment: Speci men Type: BLOOD SPECIMENOrdering Facility: [facility] Address: [address] [place] [address] Performed By: #### 2 4323-8, LIPNF, 3015-3 ####[facility] LABCLIA [id number] [place] [address] [place] Sodium [Moles/Vol] 141 mmol/L Normal 136-144 [facility] Comment on above: Order Comment: Speci men Type: BLOOD SPECIMENOrdering Facility: [facility] Address: [address] [place] [address] Performed By: #### 2 4323-8, TRISH, 6-3 ####[facility] LABCLIA [id number] [place] [address] [place] Urea nitrogen [Mass/Vol] 13 mg/dL Normal 7-21 [facility] Comment on above: Order Comment: Speci men Type: BLOOD SPECIMENOrdering Facility: [facility] Address: [address] [place] [address] Performed By: #### 2 4323-8, TRISH, 6-3 ####[facility] LABIA [id number] [place] [address] [place] HbA1c (Bld)on 01-11-2024 Average glucose Estimated from glycated hemoglobin (Bld) [Mass/Vol] 103 mg/dL Normal [facility] Comment on above: Order Comment: [facility] Type: BLOOD SPECIMENOrdering Facility: [facility] Address: [address] [place] [address] Result Comment: eAG: (Estimated average glucose) is a calculated value from HgbA1c and is reimbursement representative of the average blood glucose level in the last 2-3 month period. Performed By: #### 5 5454-3 ####[facility] LABIA [id number] [place] [address] [place] HbA1c (Bld) [Mass fraction] 5.2 % Normal 4.3-5.6 [facility] Comment on above: Order Comment: [facility] Type: BLOOD SPECIMENOrdering Facility: [facility] Address: [address] [place] [address] Result Comment: [place] Diabetes Association guidelines indicate that patients with HgbA1c in the range 5.7-6.4% are at increased risk for development of diabetes, and intervention by lifestyle modification may be beneficial. HgbA1c greater or equal to 6.5% is considered diagnostic of diabetes. Performed By: #### 5 5454-3 ####[facility] LABCLIA [id number] [place] [address] [place] LIPID PANEL, NONFASTINGon Cholesterol [Mass/Vol] 242 mg/dL High NINF - 200 mg/dL [facility] Comment on above: <200 mg/dL, Desirabl e 200-239 mg/dL, Borderline high >239 mg/dL, High HDL Cholesterol, Nonfasting 38 mg/dL Low 39 - PINF mg/dL [facility] Comment on above: 40-59 mg/dL, Accepta ble >59 mg/dL, High: Negative risk factor for coronary heart disease <40 mg/dL, Low: Positive risk factor for coronary heart disease Interpretation and review of laboratory results Abnormal [facility] LDL Cholesterol, Nonfasting 179 mg/dL High NINF - 100 mg/dL [facility] Comment on above: <100 mg/dL, Optimal 100-129 mg/dL, Near optimal/above optimal 130-159 mg/dL, Borderline high 160-189 mg/dL, High >189 mg/dL, Very high Secondary prevention optimal LDL Cholesterol levels are recommended to be < 70 mg/dL LDL/HDL Ratio, Nonfasting 4.71 mg/dL High NINF - 2.54 mg/dL [facility] Comment on above: Reference: 1. National Cholesterol Education Program ATP III Guideline At-A-Glance Quick Desk Reference: National Heart, Lung, and Blood Young Harris. National Institutes of Health. 2001: NIH Publication No. 01-3305. 2. An International Atherosclerosis Society position paper: global recommendations for the management of dyslipidemia: executive summary, Atherosclerosis. 2014: 232(2):410-413. Non HDL Cholesterol, Nonfasting 204 mg/dL High NINF - 130 mg/dL [facility] Comment on above: <130 mg/dL, Optimal 130-159 mg/dL, Near optimal/above optimal 160-189 mg/dL, Borderline high 190-219 mg/dL, High >219 mg/dL, Very high Secondary prevention optimal non HDL Cholesterol levels are recommended to be <100 mg/dL Total Chol/HDL Ratio, Nonfasting 6.37 mg/dL High NINF - 5.10 mg/dL [facility] Triglycerides, Nonfasting 124 mg/dL NINF - 150 mg/dL [facility] Comment on above: <150 mg/dL, Normal 150-199 mg/dL, Borderline high 200-499 mg/dL, High >499 mg/dL, Very high VLDL Cholesterol, Nonfasting 25 mg/dL NINF - 30 mg/dL [facility] Cholesterol [Mass/Vol] 242 mg/dL High <200 [facility] Comment on above: Order Comment: Speci men Type: BLOOD SPECIMENOrdering Facility: [facility] Address: [address] [place] [address] Result Comment: <200 mg/dL, Desirable 200-239 mg/dL, Borderline high >239 mg/dL, High Performed By: #### 2 4323-8, LIPNF, 3016-3 ####[facility] LABCLIA [id number] [place] [address] [place] HDL CHOLESTEROL, NF 38 mg/dL Low >39 [facility] Comment on above: Order Comment: Speci men Type: BLOOD SPECIMENOrdering Facility: [facility] Address: [address] [place] [address] Result Comment: 40-5 9 mg/dL, Acceptable >59 mg/dL, High: Negative risk factor for coronary heart disease <40 mg/dL, Low: Positive risk factor for coronary heart disease Performed By: #### 2 4323-8, LIPNF, 3016-3 ####[facility] LABCLIA [id number] [place] [address] [place] LDL CHOLESTEROL, NF 179 mg/dL High <100 [facility] Comment on above: Order Comment: Speci men Type: BLOOD SPECIMENOrdering Facility: [facility] Address: [address] [place] [address] Result Comment: <100 mg/dL, Optimal 100-129 mg/dL, Near optimal/above optimal 130-159 mg/dL, Borderline high 160-189 mg/dL, High >189 mg/dL, Very high Secondary prevention optimal LDL Cholesterol levels are recommended to be < 70 mg/dL Performed By: #### 2 4323-8, LIPNF, 3016-3 ####[facility] LABCLIA [id number] [place] [address] [place] LDL/HDL RATIO, NF 4.71 mg/dL High <2.54 [facility] Comment on above: Order Comment: Speci men Type: BLOOD SPECIMENOrdering Facility: [facility] Address: [address] [place] [address] Result Comment: Brenda lewis: 1. National Cholesterol Education Program ATP III Guideline At-A-Glance Quick Desk Reference: National Heart, Lung, and Blood Young Harris. National Institutes of Health. 2001: NIH Publication No. 01-3305. 2. An International Atherosclerosis Society position paper: global recommendations for the management of dyslipidemia: executive summary, Atherosclerosis. 2014: 232(2):410-413. Performed By: #### 2 4323-8, LIPNF, 3015-3 ####[facility] LABCLIA [id number] [place] [address] [place] NON HDL CHOL, NF 204 mg/dL High <130 [facility] Comment on above: Order Comment: Speci men Type: BLOOD SPECIMENOrdering Facility: [facility] Address: [address] [place] [address] Result Comment: <130 mg/dL, Optimal 130-159 mg/dL, Near optimal/above optimal 160-189 mg/dL, Borderline high 190-219 mg/dL, High >219 mg/dL, Very high Secondary prevention optimal non HDL Cholesterol levels are recommended to be <100 mg/dL Performed By: #### 2 4323-8, LIPNF, 3015-3 ####[facility] LABCLIA [id number] [address] [place] T CHOL/HDL RATIO NF 6.37 mg/dL High <5.10 [facility] Comment on above: Order Comment: Speci men Type: BLOOD SPECIMENOrdering Facility: [facility] Address: [address] [place] [address] Performed By: #### 2 4323-8, LIPNF, 6-3 ####[facility] LABCLIA [id number] [place] [address] [place] TRIGLYCERIDES, NF 124 mg/dL Normal <150 [facility] Comment on above: Order Comment: Speci men Type: BLOOD SPECIMENOrdering Facility: [facility] Address: [address] [place] [address] Result Comment: <150 mg/dL, Normal 150-199 mg/dL, Borderline high 200-499 mg/dL, High >499 mg/dL, Very high Performed By: #### 2 4323-8, LIPHERMILO, 6-3 ####[facility] LABCLIA [id number] [place] [address] [place] VLDL CHOLESTEROL, NF 25 mg/dL Normal <30 [facility] Comment on above: Order Comment: Speci men Type: BLOOD SPECIMENOrdering Facility: [facility] Address: [address] [place] [address] Performed By: #### 2 4323-8, LIPHERMILO, 3015-3 ####[facility] LABCLIA [id number] [place] [address] [place] No Panel Informationon 01-[address] [facility] THYROID STIMULATING HORMONEo n 01-11-2024 TSH Qn 1.470 m[IU]/L [facility] TSH Qnon 01-11-2024 Interpretation and review of laboratory results Normal [facility] TSH SerPl-aCncon 01-11-2024 TSH Qn 1.470 m[IU]/L Normal 0.270-4.200 [facility] Comment on above: Order Comment: Speci men Type: BLOOD SPECIMENOrdering Facility: [facility] Address: [address] [place] [address] Performed By: #### 2 4323-8, LIPNF, 6-3 ####[facility] LABCLIA [id number] [place] [address] [place] CNOVon 11-06-2023 [facility] -------- MISSY RICKS ([id number]) 1955 F Date Time Provider Department 11/06/23 9:00 AM CARRINGTON MANN During your visit today, we recorded the following information about you: Pulse Respiration Blood pressure Weight 97/minute 16/minute 126/86 89 kg Carrington Mann MD 11/06/2023 9:31 AM Signed Chief Complaint Patient presents with: Rash: Over 10 days-arms, neck, face, chest and starting on legs now HPI Missy Ricks is a 68 year old female who presents here today for Above Complaints. Patient complaining of itching rash on her hands, chest, face, arms which started 10 days ago after mowing her lawn and then pulling out weeds she thinks was poison [place]. Treating with OTC hydrocortisone cream which helps with itching, but not the rash. Denies fever/chills, purulent drainage, pain. Gradually worsening. has similar rash. Has cat at home and was checked for fleas and was negative. No change in medications, detergents, creams, makeup, recent travel, new food. Past medical history, appointments, medications, allergies reviewed. Previous Medical History PAST MEDICAL HISTORY No date: BPPV (benign paroxysmal positional vertigo) No date: Dysplasia of cervix, unspecified Comment: teenager No date: GERD (gastroesophageal reflux disease) No date: Hypertension No date: Obesity (BMI 30.0-34.9) 1999: [facility] - PAST MEDICAL HISTORY OF Comment: UTERINE FIBROIDS No date: Tobacco use Previous Surgical History PAST SURGICAL HISTORY 1984: PAST SURGICAL HISTORY OF Comment: CRYOTHERAPY FOR DYSPLASIA 05/08/98,06/02/93: ULTRASOUND PELVIS Family History FAMILY HISTORY Problem Relation Age of Onset Diabetes Mother dialysis, Hypertension Mother Hypertension Father Parkinson?s Disease Father other (alzheimers) Father Skin Cancer Sister Hypertension Brother other (colon polyps) Brother Hypertension Brother Diabetes Maternal Grandmother Breast Cancer Sister 50 Patient Allergies ALLERGIES Allergen Reactions Cashew Nut Rash Bactrim [Sulfametho* Myalgia Myalgias, photosensitivity and fever. Penicillins Prednisone Intolerance Agitation, nervousness. Current Medications Current Outpatient Medications on File Prior to Visit Medication Sig atorvastatin (LIPITOR) 20 mg tablet Take 1 tablet by mouth daily at bedtime. For cholesterol. hydroCHLOROthiazide 25 mg tablet Take 1 tablet by mouth once daily. lisinopril (ZESTRIL) 10 mg tablet Take 1 tablet by mouth once daily. No current facility-administered medications on file prior to visit. Social History Social History Tobacco Use Smoking status: Every Day Current packs/day: 0.00 Average packs/day: 1 pack/day for 35.0 years (35.0 ttl pk-yrs) Types: Cigarettes Start date: 12/27/1980 Last attempt to quit: 12/28/2015 Years since quittin.8 Smokeless tobacco: Never Tobacco comments: used to smoke 1 pack per day Vaping Use Vaping status: Never Used Substance Use Topics Alcohol use: No Drug use: No Review of Symptoms REVIEW OF SYSTEMS See HPI EXAM: BP 126/86 Pulse 97 Resp 16 Wt 89 kg (196 lb 3.4 oz) LMP 12/11/2006 SpO2 95% BMI 29.83 kg/m? General Appearance: Well appearing, alert, in no acute distress, well-hydrated, well nourished.. Skin: mild to moderate poison rosa rash on her hands, forearms, small patch on left cheek, small patch on her neck and chest. No cellulitis or abscess. Health Maintenance List Pneumococcal Vaccine: 65+(1 of 2 - PCV) Never done Depression Screening Never done Anxiety Screening Never done Lung Cancer Screening Never done Shingrix Vaccine(1 of 2) Never done RSV Vaccine(1 - 1-dose 60+ series) Never done Mammogram Screening due on 01/01/2022 Bone Density Screening Never done Covid-19 Vaccine( - season) due on 11/18/2022 Advance Directive Discussion Never done Annual PCP Team Chronic Disease Visit due on 10/18/2023 BP Controlled (<130/80) due on 10/18/2023 Influenza Vaccine(1) due on 11/19/2023 Diabetes Screening due on 09/19/2025 Colorectal Cancer Screening due on 11/11/2025 DTaP,Tdap,Td Vaccine(2 - Td or Tdap) due on 12/19/2025 Lipid Screening due on 09/20/2027 Hepatitis C Screening Completed Cervical Cancer Screening Discontinued ASSESSMENT/PLAN: 1. Poison rosa dermatitis - ICD9: 692.6, ICD10: L23.7 - Oral Steriod tx -Prednisone taper - discussed skin care of rash - follow up if symptoms persist or worsen. Carrington Mann MD Allergies As of Date: 11/06/2023 Noted Allergy Reaction CASHEW NUT 08/21/2006 2 - Rash BACTRIM (SULFAMETHOXAZOLE-TRIMET H*01/19/2016 17 - Myalgia Comments: Myalgias, photosensitivity and fever. PENICILLINS 03/16/2005 PREDNISONE 01/19/2016 5 - Intolerance Comments: Agitation, nervousness. Date Reviewed: 11/06/2023 Reviewed by: Carlos Carson (more content not included)... Normal [facility] Vital Signs Date Time Vital Sign Value Performing Clinician Faci lity 09-16-2024 11:04-0400 Body height 172.[address] Tres Mann MD Work Phone: [facility] 09-16-2024 11:04-0400 Body mass index (BMI) [Ratio] 30.7 kg/m2 Dr. Tres Mann MD Work Phone: [facility] 09-16-2024 11:04-0400 Body weight 91.[address] Tres Mann MD Work Phone: [facility] 09-16-2024 11:04-0400 Diastolic blood pressure 92 mm[Hg] Dr. Tres Mann MD Work Phone: [facility] 09-16-2024 11:04-0400 Heart rate 90 /min Dr. Tres Mann MD Work Phone: [facility] 09-16-2024 11:04-0400 Respiratory rate 18 /min Dr. Tres Mann MD Work Phone: [facility] 09-16-2024 11:04-0400 SaO2% (BldA) [Mass fraction] 97 % Dr. Tres Mann MD Work Phone: [facility] 09-16-2024 11:04-0400 Systolic blood pressure 133 mm[Hg] Dr. Tres Mann MD Work Phone: [facility] 07-12-2024 09:31-0400 Diastolic blood pressure 70 mm[Hg] Carrington Mann MD Work Phone: [facility] 07-12-2024 09:31-0400 Heart rate 70 /min Carrington Mann MD Work Phone: [facility] 07-12-2024 09:31-0400 Respiratory rate 16 /min Carrington Mann MD Work Phone: [facility] 07-12-2024 09:31-0400 SaO2% (BldA) [Mass fraction] 96 % Carrington Mann MD Work Phone: [facility] 07-12-2024 09:31-0400 Systolic blood pressure 118 mm[Hg] Carrington Mann MD Work Phone: [facility] 02-26-2024 10:03-0500 Body height 169.5 cm Pulm Wstr Work Phone: [facility] 02-26-2024 10:03-0500 Heart rate 101 /min Pulm Wstr Work Phone: [facility] 02-26-2024 10:03-0500 Respiratory rate 13 /min Pulm Wstr Work Phone: [facility] 02-26-2024 10:03-0500 SaO2% (BldA) [Mass fraction] 99 % Pulm Wstr Work Phone: [facility] 02-26-2024 09:26-0500 Body height 169.5 cm Bell Dixon APRN.POULTRY DRESSING WORKER Work Phone: [facility] 02-26-2024 09:26-0500 Body mass index (BMI) [Ratio] 31.89 kg/m2 Bell Dixon APRN.POULTRY DRESSING WORKER Work Phone: [facility] 02-26-2024 09:26-0500 Body weight 91.63 kg Bell Skowhegan TELECOMMUNICATIONS REPAIRER.POULTRY DRESSING WORKER Work Phone: [facility] 02-26-2024 09:26-0500 Diastolic blood pressure 80 mm[Hg] Bell Skowhegan TELECOMMUNICATIONS REPAIRER.POULTRY DRESSING WORKER Work Phone: [facility] 02-26-2024 09:26-0500 Heart rate 100 /min Bell Skowhegan TELECOMMUNICATIONS REPAIRER.POULTRY DRESSING WORKER Work Phone: [facility] 02-26-2024 09:26-0500 Respiratory rate 18 /min Bell Skowhegan TELECOMMUNICATIONS REPAIRER.POULTRY DRESSING WORKER Work Phone: [facility] 02-26-2024 09:26-0500 SaO2% (BldA) [Mass fraction] 96 % Bell Skowhegan TELECOMMUNICATIONS REPAIRER.POULTRY DRESSING WORKER Work Phone: [facility] 02-26-2024 09:26-0500 Systolic blood pressure 132 mm[Hg] Bell Skow[place]gan TELECOMMUNICATIONS REPAIRER.POULTRY DRESSING WORKER Work Phone: [facility] 01-26-2024 09:24-0500 Body mass index (BMI) [Ratio] 30.77 kg/m2 Carrington Mann MD Work Phone: [facility] 01-26-2024 09:24-0500 Body weight 91.8 kg Carrington Mann MD Work Phone: [facility] 01-26-2024 09:24-0500 Diastolic blood pressure 78 mm[Hg] Carrington Mann MD Work Phone: [facility] 01-26-2024 09:24-0500 Heart rate 92 /min Carrington Mann MD Work Phone: [facility] 01-26-2024 09:24-0500 Respiratory rate 18 /min Carrington Mann MD Work Phone: [facility] 01-26-2024 09:24-0500 SaO2% (BldA) [Mass fraction] 98 % Carrington Mann MD Work Phone: [facility] 01-26-2024 09:24-0500 Systolic blood pressure 106 mm[Hg] Carrington Mann MD Work Phone: [facility] 01-11-2024 13:18-0400 Diastolic blood pressure 96 mm[Hg] Carrington Mann MD Work Phone: [facility] Comment on above: recheck 01-11-2024 13:18-0400 Systolic blood pressure 130 mm[Hg] Carrington Mann MD Work Phone: [facility] Comment on above: recheck 01-11-2024 12:24-0400 Body mass index (BMI) [Ratio] 31.17 kg/m2 Carrington Mann MD Work Phone: [facility] 01-11-2024 12:24-0400 Body weight 92.99 kg Carrington Mann MD Work Phone: [facility] 01-11-2024 12:24-0400 Heart rate 95 /min Carrington Mann MD Work Phone: [facility] 01-11-2024 12:24-0400 SaO2% (BldA) [Mass fraction] 98 % Carrington Mann MD Work Phone: [facility] 11-06-2023 08:58-0400 Body mass index (BMI) [Ratio] 29.83 kg/m2 Carrington Mann MD Work Phone: [facility] 11-06-2023 08:58-0400 Body weight 89 kg Carrington Mann MD Work Phone: [facility] 11-06-2023 08:58-0400 Diastolic blood pressure 86 mm[Hg] Carrington Mann MD Work Phone: [facility] 11-06-2023 08:58-0400 Heart rate 97 /min Carrington Mann MD Work Phone: [facility] 11-06-2023 08:58-0400 Respiratory rate 16 /min Carrington Mann MD Work Phone: [facility] 11-06-2023 08:58-0400 SaO2% (BldA) [Mass fraction] 95 % Carrington Mann MD Work Phone: [facility] 11-06-2023 08:58-0400 Systolic blood pressure 126 mm[Hg] Carrington Mann MD Work Phone: [facility] 10-17-2022 08:21-0400 Body height 172.7 cm Мария Podlogar TELECOMMUNICATIONS REPAIRER.POULTRY DRESSING WORKER Work Phone: [facility] 10-17-2022 08:21-0400 Body weight 88 kg Мария Podlogar TELECOMMUNICATIONS REPAIRER.POULTRY DRESSING WORKER Work Phone: [facility] 10-17-2022 08:21-0400 Diastolic blood pressure 80 mm[Hg] Мария Podlogar TELECOMMUNICATIONS REPAIRER.POULTRY DRESSING WORKER Work Phone: [facility] 10-17-2022 08:21-0400 Heart rate 76 /min Мария Podlogar TELECOMMUNICATIONS REPAIRER.POULTRY DRESSING WORKER Work Phone: [facility] 10-17-2022 08:21-0400 Respiratory rate 16 /min Мария Podlogar TELECOMMUNICATIONS REPAIRER.POULTRY DRESSING WORKER Work Phone: [facility] 10-17-2022 08:21-0400 Systolic blood pressure 122 mm[Hg] Мария Podlogar TELECOMMUNICATIONS REPAIRER.POULTRY DRESSING WORKER Work Phone: [facility] 10-14-2021 10:43-0400 Body weight 86.82 kg Carrington Mann MD Work Phone: [facility] 10-14-2021 10:43-0400 Diastolic blood pressure 70 mm[Hg] Carrington Mann MD Work Phone: [facility] 10-14-2021 10:43-0400 Heart rate 79 /min Carrington Mann MD Work Phone: [facility] 10-14-2021 10:43-0400 Respiratory rate 16 /min Carrington Mann MD Work Phone: [facility] 10-14-2021 10:43-0400 SaO2% (BldA) [Mass fraction] 99 % Carrington Mann MD Work Phone: [facility] 10-14-2021 10:43-0400 Systolic blood pressure 116 mm[Hg] Carrington Mann MD Work Phone: [facility] Encounters Encounter Date Encounter Type Care Provider Facility Start: 09-16-2024 End: 09-16-2024 Patient encounter procedure Geri VILLELA -[facility] Work Phone: Start: 09-16-2024 End: 09-16-[address] Tres Mann MD Work Phone: -[facility] Start: 07-12-2024 End: 07-12-2024 Patient encounter procedure Carrington Mann MD Work Phone: [facility] Comment on above: Medicare annual well ness visit, subsequent (Primary Dx); Decreased visual acuity; Essential hypertension; Hyperlipidemia, mixed; Screening for depression; Advance directive discussed with patient; Tobacco use Start: 07-12-2024 End: 07-12-2024 ambulatory CARRINGTON MANN Facility:[facility] Start: 05-01-2024 ambulatory Tres Mann Faci lity:[facility] Start: 05-01-2024 End: 05-01-2024 [facility] Start: 04-16-2024 End: 04-16-2024 Telephone encounter Carrington Mann MD Work Phone: [facility] Comment on above: Patient Question; Me dication Request Start: 04-15-2024 End: 04-15-2024 ambulatory Tres Mann Facility:[facility] Start: 03-12-2024 End: 03-12-2024 ambulatory Bell Dixon APRN.POULTRY DRESSING WORKER Work Phone: Pulmonary Medicine Start: 03-12-2024 End: 03-12-2024 Patient encounter procedure Bell Dixon APRN.POULTRY DRESSING WORKER Work Phone: [facility] Medicine Comment on above: HEART DOCTOR APPOINT MENT Start: 03-07-2024 End: 03-12-2024 Telephone encounter Bell Youngpster TELECOMMUNICATIONS REPAIRER.POULTRY DRESSING WORKER Work Phone: Pulmonary Medicine Comment on above: Results Start: 03-06-2024 End: 03-06-2024 ambulatory CARRINGTON MANN Facility:[facility] Start: 03-06-2024 End: 03-06-2024 Subsequent hospital visit by physician Ct [facility] (I-Stat) Work Phone: Cat Scan Comment on above: Encounter for screen ing for lung cancer [Z12.2] Start: 03-01-2024 End: 03-07-2024 Telephone encounter Carrington Mann MD Work Phone: [facility] Comment on above: F/U on Bone Density Results Start: 02-29-2024 End: 03-06-2024 Telephone encounter Carrington Mann MD Work Phone: [facility] [place] Comment on above: Results Start: 02-29-2024 End: 02-29-2024 ambulatory CARRINGTON MANN Facility:[facility] Start: 02-29-2024 End: 02-29-2024 Subsequent hospital visit by physician Bone Density [facility] Work Phone: Radiology Comment on above: Asymptomatic postmen opausal status [Z78.0] Start: 02-26-2024 End: 02-26-2024 ambulatory Pulm Lab [facility] Work Phone: PULM [facility] Comment on above: Spirometry Start: 02-26-2024 End: 02-26-2024 Patient encounter procedure Pulm Lab [facility] Work Phone: [facility] Comment on above: Encounter for screen ing for lung cancer (Primary Dx); Tobacco use; Shortness of breath Start: 01-26-2024 End: 01-26-2024 Patient encounter procedure Carrington Mann MD Work Phone: [facility] [place] Comment on above: Essential hypertensi on (Primary Dx) Start: 01-26-2024 End: 01-26-2024 ambulatory CARRINGTON MANN Facility:[facility] Start: 01-22-2024 End: 01-22-2024 Telephone encounter Olga Mijares APRN.CNP Work Phone: [facility] Comment on above: Results Start: 01-19-2024 End: 01-19-2024 ambulatory CARRINGTON MANN Facility:[facility] Start: 01-19-2024 End: 01-19-2024 Subsequent hospital visit by physician Screen Mammo [facility] Mammogram Comment on above: Encounter for screen ing mammogram for breast cancer [Z12.31] Start: 01-12-2024 End: 01-16-2024 Telephone encounter Carrington aMnn MD Work Phone: [facility] Comment on above: Results Start: 01-11-2024 End: 01-11-2024 ambulatory CARRINGTON MANN Facility:[facility] Start: 01-11-2024 End: 01-11-2024 Patient encounter procedure Carrington Mann MD Work Phone: [facility] Comment on above: Persistent cough for 3 weeks or longer (Primary Dx); Essential hypertension; Hyperlipidemia, mixed; Gastroesophageal reflux disease, unspecified whether esophagitis present; Obesity (BMI 30.0-34.9); Tobacco use; Asymptomatic postmenopausal status Start: 01-11-2024 End: 01-11-2024 ambulatory CARRINGTON MANN Facility:[facility] Start: 12-20-2023 End: 12-25-2023 ambulatory Carrington Mann MD Work Phone: Internal Medicine [facility] Start: 12-14-2023 End: 12-14-2023 ambulatory Radha Gallo MA [facility] Start: 12-14-2023 End: 12-14-2023 [facility] Comment on above: Population Health Na vigation Outreach (/UHC, AWV, Care gaps, HCC, Lj PCSA//) Start: 11-06-2023 End: 11-06-2023 ambulatory Sun Hines RN NURSE FRUIT FARMER Comment on above: Rash Start: 11-06-2023 End: 11-06-2023 Patient encounter procedure Carrington Mann MD Work Phone: [facility] Comment on above: Poison rosa dermatiti s (Primary Dx) Start: 08-31-2023 ambulatory Vilma Martines [facility] Start: 08-31-2023 [facility] Comment on above: Population Health Na vigation Outreach (ACO LJ PCSA) Start: 01-11-2023 ambulatory Carrington Mann MD Work Phone: Internal [facility] Start: 12-28-2022 Refill Carrington Mann MD Work Phone: [facility] Comment on above: Refill Request Start: 11-22-2022 Telephone encounter Tres Mann MD Work Phone: [facility] Comment on above: Results Start: 10-17-2022 End: 10-17-2022 Patient encounter procedure Мария Aceves APRN.POULTRY DRESSING WORKER Work Phone: [facility] [place] Comment on above: Routine physical exa mination (Primary Dx); Screening for colon cancer; Essential hypertension; Hyperlipidemia, mixed Start: 10-17-2022 End: 10-17-2022 Physical examination Мария Aceves APRN.POULTRY DRESSING WORKER Work Phone: [facility] Work Phone: Start: 09-21-2022 Telephone encounter Мария barrientos APRN.POULTRY DRESSING WORKER Work Phone: [facility] Comment on above: Results Start: 02-02-2022 ambulatory Carrington Mann MD Work Phone: Internal [facility] Start: 10-15-2021 Telephone encounter Tres Mann MD Work Phone: [facility] [place] Comment on above: Results Start: 10-14-2021 End: 10-14-2021 Patient encounter procedure Carrington Mann MD Work Phone: [facility] Comment on above: Essential hypertensi on (Primary Dx); Gastroesophageal reflux disease, unspecified whether esophagitis present; Overweight (BMI 25.0-29.9); Tobacco use Procedures Date Procedure Procedure Detail Performing Clinician Start: 07-12-2024 Adult depression screening assessment Carrington Mann MD Work Phone: Start: 07-12-2024 Lipid 1996 panel - S gigi or Plasma Carrington Mann MD Work Phone: Start: 03-06-2024 CT LUNG SCREEN WO BI Harvey Destiny TELECOMMUNICATIONS REPAIRER.POULTRY DRESSING WORKER Work Phone: Start: 02-26-2024 Co diffusing capacity Tello graves Destiny TELECOMMUNICATIONS REPAIRER.POULTRY DRESSING WORKER Work Phone: Start: 01-11-2024 Lipid 1996 panel - S gigi or Plasma Carrington Mann MD Work Phone: Start: 09-19-2022 Lipid 1996 panel - S gigi or Plasma Carrington Mann MD Work Phone: Start: 01-01-2021 Mammography Tres Mann MD Work Phone: Start: 11-26-2015 Adult depression screening assessment Carrington Mann MD Work Phone: Plan of Treatment Date Care Activity Detail Author Start: 2032 RSV Vaccine (1 - 1-d ose 75+ series) RSV Vaccine (1 - 1-dose 75+ series) [facility] Start: 07-12-2029 Lipid panel Lipid Screening [facility] Start: 01-10-2029 Lipid panel Lipid Screening [facility] Start: 09-20-2027 Lipid 1996 panel - S gigi or Plasma Lipid Screening [facility] Start: 09-20-2027 Lipid panel Lipid Screening [facility] Start: 09-20-2027 LIPID SCREEN LIPID SCREEN [facility] Start: 01-10-2027 Diabetes Screening Diabetes Screenin g [facility] Start: 10-14-2026 LIPID SCREEN LIPID SCREEN [facility] Start: 01-01-2026 HPV TESTING HPV TESTING [facility] Start: 01-01-2026 PAP TESTING PAP TESTING [facility] Start: 12-19-2025 Urine microalbumin profile [facility] Start: 11-11-2025 COLOGUARD (FIT-DNA) COLOGUARD (FIT-D NA) [facility] Start: 11-11-2025 COLORECTAL CANCER SCREENING COLORECTAL CANCER SCREENING [facility] Start: 11-11-2025 Screening for malign ant neoplasm of colon [facility] Start: 09-19-2025 DIABET[facility]CRE[facility] Start: 09-19-2025 Diabetes Screening Diabetes Screenin g [facility] Start: 07-12-2025 Annual PCP Team Expressive Therapist beny Disease Visit Annual PCP Team Chronic Disease Visit [facility] Start: 07-12-2025 BP Controlled (<130/80) BP Controlle d (<130/80) [facility] Start: 07-12-2025 Depression Screening Depression Scre ening [facility] Start: 07-11-2025 End: 07-11-2025 Patient encounter procedure 07/11/2025 9:20 AM EDT Office Visit [facility] [address] [place] [address] Carrington Mann MD [address] [place] [address] medicare wellness [facility] [place] Comment on above: medicare wellness Start: 03-06-2025 Screening for malign ant neoplasm of lung Lung Cancer Screening [facility] Start: 02-17-2025 End: 04-06-2025 CT Chest for screening WO contrast CT LUNG SCREEN WO IVCON Radiology Routine Encounter for screening for lung cancer Tobacco use Expected: 02/17/2025 (Approximate), Expires: 04/06/2025 [facility] Work Phone: Comment on above: Expected: 02/17/2025 (Approximate), Expires: 04/06/2025 Start: 01-25-2025 Annual PCP Team Expressive Therapist beny Disease Visit Annual PCP Team Chronic Disease Visit [facility] Start: 01-25-2025 BP Controlled (<130/80) BP Controlle d (<130/80) [facility] Start: 01-18-2025 Screening for malign ant neoplasm of breast Mammogram Screening [facility] Start: 01-10-2025 Annual PCP Team Expressive Therapist beny Disease Visit Annual PCP Team Chronic Disease Visit [facility] Start: 01-10-2025 Anxiety Screening Anxiety Screening [facility] Comment on above: Postponed from 09/06 (Declined at this time) Start: 01-10-2025 Covid-19 Vaccine ( season) Covid-19 Vaccine ( season) [facility] Comment on above: Postponed from 11/18 (Declined at this time) Start: 01-10-2025 Pneumococcal Vaccine : 50+ (1 of 2 - PCV) Pneumococcal Vaccine: 50+ (1 of 2 - PCV) [facility] Comment on above: Postponed from 09/06 (Declined at this time) Start: 01-10-2025 Pneumococcal Vaccine : 65+ (1 of 2 - PCV) Pneumococcal Vaccine: 65+ (1 of 2 - PCV) [facility] Comment on above: Postponed from 09/06 (Declined at this time) Start: 01-10-2025 Shingrix Vaccine (1 of 2) Shingrix Vaccine (1 of 2) [facility] Comment on above: Postponed from 09/06 (Declined at this time) Start: 01-08-2025 End: 01-08-2025 Patient encounter procedure 01/08/2025 9:20 AM EDT Office Visit [facility] [place] [address] [place], [place] [id number] PodlogarМария APRN.POULTRY DRESSING WORKER [address] [place] [address] 6 month follow up [facility] [place] Comment on above: 6 month follow up Start: 11-05-2024 Annual PCP Team Expressive Therapist beny Disease Visit Annual PCP Team Chronic Disease Visit [facility] Start: 10-14-2024 DIABETES SCREEN DIABETES SCREEN [facility] Start: 09-19-2024 ambulatory Ambulatory Facility:[facility] Start: 09-16-2024 Influenza vaccination Influenza Vacc ine (#1) [facility] Comment on above: Postponed from 11/18 (Declined at this time) Start: 07-15-2024 End: 10-14-2024 LIPID PANEL, NONFASTING LIPID PANEL, NONFASTING Lab Routine Hyperlipidemia, mixed Expected: 07/15/2024 (Approximate), Expires: 10/14/2024 [facility] Work Phone: Comment on above: Expected: 07/15/2024 (Approximate), Expires: 10/14/2024 Start: 07-12-2024 End: 07-12-2024 Patient encounter procedure 07/12/2024 9:20 AM EDT Office Visit [facility] [place] [address] [place] [id number] Carrington Mann MD [address] [place] [address] medicare wellness [facility] Comment on above: medicare wellness Start: 04-24-2024 LIPID SCREEN LIPID SCREEN [facility] Start: 03-20-2024 Advance Directive Discussion Advance Directive Discussion [facility] Start: 03-06-2024 End: 03-06-2024 Patient encounter procedure 03/06/2024 8:40 AM EST Appointment Cat Scan [address] [place] [id number] Encounter for screening for lung cancer [Z12.2]; Tobacco use [Z72.0] Cat Scan Comment on above: Encounter for screen ing for lung cancer [Z12.2]; Tobacco use [Z72.0] Start: 02-29-2024 End: 02-29-2024 Patient encounter procedure 02/29/2024 8:20 AM EST Appointment Radiology [address] [place] [id number] Asymptomatic postmenopausal status [Z78.0] Radiology Comment on above: Asymptomatic postmen opausal status [Z78.0] Start: 02-26-2024 End: 02-26-2024 ambulatory 02/26/2024 10:00 AM EST Procedure PULM LAB [facility] [address] [place] [id number] W[facility], Pulm Lab [facility] [address] [place] [address] tobacco use [facility]UL[facility] Comment on above: tobacco use Start: 02-26-2024 End: 02-26-2024 Patient encounter procedure 02/26/2024 9:30 AM EST Office Visit Pulmonary Medicine [address] [place] [address] Bell Dixon APRN.POULTRY DRESSING WORKER [address] [place] [address] tobaccon use Pulmonary Medicine Comment on above: tobaccon use Start: 01-26-2024 End: 01-26-2024 Patient encounter procedure 01/26/2024 9:20 AM EST Office Visit [facility] [place] [address] [facility] [place] [place] [address] Carrington Mann MD [address] [facility] [place] [place] [id number] BP recheck [facility] Comment on above: BP recheck Start: 01-19-2024 End: 01-19-2024 Patient encounter procedure 01/19/2024 9:10 AM EDT Appointment Mammogram [address] [place], [place] [id number] Encounter for screening mammogram for breast cancer [Z12.31] Mammogram Comment on above: Encounter for screen ing mammogram for breast cancer [Z12.31] Start: 01-11-2024 End: 01-11-2024 Patient encounter procedure 01/11/2024 12:20 PM EDT Office Visit [facility] [place] [address] [facility] [place] [phone] Carrington Mann MD [address] [facility] [place] [place] [id number] Physical [facility] [place] Comment on above: Physical Start: 11-19-2023 Covid-19 Vaccine ( season) Covid-19 Vaccine ( season) [facility] Start: 11-19-2023 Influenza vaccination C [facility] Start: 10-18-2023 ANNUAL PCP TEAM PLATE CLEANER BENY DISEASE VISIT ANNUAL PCP TEAM CHRONIC DISEASE VISIT [facility] Start: 10-18-2023 BONE DENSITY BONE DENSITY [facility] Comment on above: Postponed from 09/06 (Declined at this time) Start: 10-18-2023 Bone Density Screening Bone Density Screening [facility] Comment on above: Postponed from 09/06 (Declined at this time) Start: 10-18-2023 BP CONTROLLED (<130/80) BP CONTROLLE D (<130/80) [facility] Start: 10-18-2023 COVID-19 VACCINE (3 - Pfizer series) COVID-19 VACCINE (3 - Pfizer series) [facility] Comment on above: Postponed from 05/27 (Declined at this time) Start: 10-18-2023 HIV SCREENING HIV SCREENING [facility] Comment on above: Postponed from 09/06 (Declined at this time) Start: 10-18-2023 HIV screening HIV Screening [facility] Comment on above: Postponed from 09/06 (Declined at this time) Start: 10-18-2023 [facility] Comment on above: Postponed from 09/06 (Declined at this time) Start: 10-18-2023 Pneumococcal Vaccine : 65+ (1 - PCV) Pneumococcal Vaccine: 65+ (1 - PCV) [facility] Comment on above: Postponed from 09/06 (Declined at this time) Start: 10-18-2023 Pneumococcal Vaccine : 65+ (1 of 2 - PCV) Pneumococcal Vaccine: 65+ (1 of 2 - PCV) [facility] Comment on above: Postponed from 09/06 (Declined at this time) Start: 10-18-2023 PNEUMOCOCCAL: 65+ (1 - PCV) PNEUMOCOCCAL: 65+ (1 - PCV) [facility] Comment on above: Postponed from 09/06 (Declined at this time) Start: 10-18-2023 Screening for malign ant neoplasm of lung Lung Cancer Screening [facility] Comment on above: Postponed from 09/06 (Declined at this time) Start: 10-18-2023 Screening for osteoporosis Bone Density Screening [facility] Comment on above: Postponed from 09/06 (Declined at this time) Start: 10-18-2023 SHINGRIX VACCINE (1 of 2) SHINGRIX VACCINE (1 of 2) [facility] Comment on above: Postponed from 09/06 (Declined at this time) Start: 09-20-2023 ANNUAL PCP TEAM PLATE CLEANER BENY DISEASE VISIT ANNUAL PCP TEAM CHRONIC DISEASE VISIT [facility] Start: 04-19-2023 End: 06-19-2023 Comprehensive metabolic 2000 panel - Serum or Plasma COMP METABOLIC PANEL Lab Routine Essential hypertension Expected: 04/19/2023, Expires: 06/19/2023 [facility] Work Phone: Comment on above: Expected: 04/19/2023 , Expires: 06/19/2023 Start: 04-19-2023 End: 06-19-2023 Lipid 1996 panel - Serum or Plasma LIPID PANEL BASIC Lab Routine Hyperlipidemia, mixed Expected: 04/19/2023, Expires: 06/19/2023 [facility] Work Phone: Comment on above: Expected: 04/19/2023 , Expires: 06/19/2023 Start: 03-20-2023 Advance Directive Discussion Advance Directive Discussion [facility] Start: 03-20-2023 Behavioral Health Screening Behavioral Health Screening [facility] Start: 03-04-2023 DIABETES SCREEN DIABETES SCREEN [facility] Start: 11-18-2022 Covid-19 Vaccine ( season) Covid-19 Vaccine ( season) [facility] Start: 11-18-2022 Influenza vaccination [facility] Start: 10-14-2022 Influenza vaccination LUNG CANCER SC [facility] Comment on above: Postponed from 09/06 (Declined at this time) Start: 10-14-2022 PNEUMOCOCCAL (1 - PCV) PNEUMOCOCCAL (1 - PCV) [facility] Comment on above: Postponed from 09/06 (Declined at this time) Start: 2022 ADVANCE DIRECTIVE DISCUSSION ADVANCE DIRECTIVE DISCUSSION [facility] Start: 2022 BONE DENSITY BONE DENSITY [facility] Start: 2022 Screening for osteoporosis Bone Density Screening [facility] Start: 01-19-2022 End: 03-21-2022 Comprehensive metabolic 2000 panel - Serum or Plasma COMP METABOLIC PANEL Lab Routine Hyperlipidemia, mixed Expected: 01/19/2022, Expires: 03/21/2022 [facility] Work Phone: Comment on above: Expected: 01/19/2022 , Expires: 03/21/2022 Start: 01-19-2022 End: 03-21-2022 Lipid 1996 panel - Serum or Plasma LIPID PANEL BASIC Lab Routine Hyperlipidemia, mixed Expected: 01/19/2022, Expires: 03/21/2022 [facility] Work Phone: Comment on above: Expected: 01/19/2022 , Expires: 03/21/2022 Start: 01-01-[address] [facility] Start: 01-01-2022 Screening for malign ant neoplasm of breast Mammogram Screening [facility] Start: 11-18-2021 Influenza vaccination INFLUENZA (#1) [facility] Start: 10-14-2021 End: 12-14-2021 CBC panel - Blood by Automated count [facility] Work Phone: Comment on above: Expected: 10/14/2021 , Expires: 12/14/2021 Start: 10-14-2021 End: 12-14-2021 Comprehensive metabolic 2000 panel - Serum or Plasma [facility] Work Phone: Comment on above: Expected: 10/14/2021 , Expires: 12/14/2021 Start: 10-14-2021 End: 12-14-2021 LIPID PANEL, NONFASTING [facility] Work Phone: Comment on above: Expected: 10/14/2021 , Expires: 12/14/2021 Start: 03-20-2021 DEPRESSION ASSESSMENT DEPRESSION ASS ESSMENT [facility] Start: 08-30-2020 COVID-19 VACCINE (3 - Booster for Pfizer series) COVID-19 VACCINE (3 - Booster for Pfizer series) [facility] Start: 05-27-2020 COVID-19 VACCINE (3 - Booster for Pfizer series) COVID-19 VACCINE (3 - Booster for Pfizer series) [facility] Start: 2017 RSV Vaccine (1 - 1-d ose 60+ series) RSV Vaccine (1 - 1-dose 60+ series) [facility] Start: 11-25-2016 Adult depression screening assessment DEPRESSION SCREENING [facility] Start: 09-07-2007 Screening for malign ant neoplasm of lung Lung Cancer Screening [facility] Start: 09-07-2007 SHINGRIX VACCINE (1 of 2) SHINGRIX VACCINE (1 of 2) [facility] Start: 2002 COLOGUARD (FIT-DNA) COLOGUARD (FIT-D NA) [facility] Start: 2002 Colonoscopy COLONOSCOPY [facility] Start: 2002 COLORECTAL CANCER SCREENING COLORECTAL CANCER SCREENING [facility] Start: [address] COLONOGRAPHY [facility] Start: 2002 FECAL OCCULT BLOOD FECAL OCCULT BLOO D [facility] Start: 2002 Screening for malign ant neoplasm of colon [facility] Start: 2002 SIGMOIDOSCOPY SIGMOIDOSCOPY [facility] Start: 09-07-1975 Anxiety Screening Anxiety Screening [facility] Start: 09-07-1975 BP CONTROLLED (<130/80) BP CONTROLLE D (<130/80) [facility] Start: 09-07-1975 Depression Screening Depression Scre ening [facility] Start: 09-07-1975 HIV SCREENING HIV SCREENING [facility] Start: 09-07-1963 Pneumococcal Vaccine : 65+ (1 of 2 - PCV) Pneumococcal Vaccine: 65+ (1 of 2 - PCV) [facility] Start: 09-07-1963 PNEUMOCOCCAL: 65+ (1 - PCV) PNEUMOCOCCAL: 65+ (1 - PCV) [facility] End: 02-09-2025 BD DXA TRABECULAR BONE SCORE (TBS) BD DXA TRABECULAR BONE SCORE (TBS) Radiology Routine Asymptomatic postmenopausal status 1 Occurrences starting 01/11/2024 until 02/09/[address] [facility] Comment on above: 1 Occurrences starti ng 01/11/2024 until 02/09/2025 BD DXA TRABECULAR JAK NE SCORE (TBS) BD DXA TRABECULAR BONE SCORE (TBS) Radiology Routine Asymptomatic postmenopausal status 02/29/2024 8:51 AM EST [facility] COLOGUARD COLOGUARD Lab Ro utine Screening for colon cancer Ordered: 10/17/2022 [facility] Work Phone: Comment on above: Ordered: 10/17/2022 End: 03-27-2025 CT Chest for screening WO contrast CT LUNG SCREEN WO IVCON Radiology Routine Encounter for screening for lung cancer Tobacco use 1 Occurrences starting 02/26/2024 until 03/27/2025 [facility] Work Phone: Comment on above: 1 Occurrences starti ng 02/26/2024 until 03/27/2025 End: 01-18-2025 DBT Breast - bilateral screening MICKEY SCREENING W MALCOLM Radiology Routine Encounter for screening mammogram for breast cancer 1 Occurrences starting 12/20/2023 until 01/18/2025 [facility] Work Phone: Comment on above: 1 Occurrences starti ng 12/20/2023 until 01/18/2025 DBT Breast - bilater al screening MICKEY SCREENING W MALCOLM Radiology Routine Encounter for screening mammogram for breast cancer 01/19/2024 9:06 AM EDT [facility] Work Phone: End: 02-09-2025 DXA Skeletal system.axial Views for bone density DXA-AXIAL SKELETON Radiology Routine Asymptomatic postmenopausal status 1 Occurrences starting 01/11/2024 until 02/09/[address] [facility] Comment on above: 1 Occurrences starti ng 01/11/2024 until 02/09/2025 DXA Skeletal system.axial Views for bone density DXA-AXIAL SKELETON Radiology Routine Asymptomatic postmenopausal status 02/29/2024 8:51 AM EST [facility] Work Phone: LUNG DIFFUSION CAPAC ITY (DLCO) LUNG DIFFUSION CAPACITY (DLCO) PFT Routine Shortness of breath 02/26/2024 10:05 AM EST [facility] Work Phone: End: 02-10-2024 MICKEY SCREENING MICEKY SCREENING Radiology Routine Encounter for screening mammogram for breast cancer 1 Occurrences starting 01/11/2023 until 02/10/2024 [facility] Work Phone: Comment on above: 1 Occurrences starti ng 01/11/2023 until 02/10/2024 End: 03-04-2023 Screening mammography bi 2-view breast inc cad MICKEY SCREENING Radiology Routine Encounter for screening mammogram for breast cancer 1 Occurrences starting 02/02/2022 until 03/04/2023 [facility] Work Phone: Comment on above: 1 Occurrences starti ng 02/02/2022 until 03/04/2023 End: 02-09-2025 SPIROMETRY - BASELINE AND POST DILATOR SPIROMETRY - BASELINE AND POST DILATOR PFT Routine Tobacco use Persistent cough for 3 weeks or longer 1 Occurrences starting 01/11/2024 until 02/09/2025 [facility] Work Phone: Comment on above: 1 Occurrences starti ng 01/11/2024 until 02/09/2025 SPIROMETRY - BASELIN E AND POST DILATOR SPIROMETRY - BASELINE AND POST DILATOR PFT Routine Tobacco use Persistent cough for 3 weeks or longer 02/26/2024 10:05 AM EST [facility] Work Phone: [facility] Immunizations Immunization Date Immunization Notes Care Provider Fa cili 04-01-2020 COVID-19 vaccine, ag e 12+ yr (PFIZER-BIONTECH - PURPLE TOP) Carrington Mann MD Work Phone: [facility] 03-11-2020 COVID-19 vaccine, ag e 12+ yr (PFIZER-BIONTECH - PURPLE TOP) Carrington Mann MD Work Phone: [facility] 12-18-2018 influenza, seasonal, injectable Carrington Mann MD Work Phone: [facility] 12-18-2018 influenza virus vaccine, unspecified formulation Carrington Mann MD Work Phone: [facility] 12-20-2015 tetanus toxoid, redu sharri diphtheria toxoid, and acellular pertussis vaccine, adsorbed Carrington Mann MD Work Phone: [facility] Payers Date Payer Category Payer Self-pay 2023 Medicare UHC AARP MEDICAR E [facility] MEDICARE O [id number] 2023-Present [phone] [address] [address] [place] [address] [facility] [id number] 2023 Medicare (Managed Care) [facility] MEDICARE HMO [id number] 2023 Medicare [id number] 2021 Private Health Insurance [facility] [id number] 2021-Present [phone] [address] [address] [place] [address] HMO [id number] 2021 Private Health Insurance [id number] 2016 Unknown [id number] Unknown [id number] Unknown [id number] Unknown [id number] Unknown [id number] Unknown [id number] Social History Date Type Detail Facility Start: 04-06-2017 End: 04-08-2024 Tobacco smoking status NHIS Smokes tobacco daily [facility] Start: 12-27-1980 End: 12-28-2015 History of tobacco use Cigarette Smoker [facility] Start: 04-06-2017 End: 09-19-2022 Cigarettes smoked current (pack per day) - Reported [address] [facility] Work Phone: Start: 04-06-2017 End: 02-26-2024 Tobacco use and exposure Smokeless tobacco non-user [facility] Start: 10-14-2021 End: 07-12-2024 Alcohol intake Current non-drinker of alcohol (finding) [facility] Start: 04-24-2019 End: 09-19-2022 Tobacco Comment used to smoke 1 pack per day [facility] Start: 1955 Sex Assigned At Not on file C [facility] Start: 10-04-2021 End: 10-14-2021 Exposure to SARS-CoV-2 (event) Not sure [facility] Start: 09-19-2022 End: 10-17-2022 Tobacco use panel [facility] Work Phone: Adult Depression Screening Assessment [address] [facility] Work Phone: How often to you hav e a drink containing alcohol? Never [facility] Start: 1955 Sex Assigned At Female W [facility] Functional Status Date Assessment Result Facility 07-12-2024 Total score [AUDIT-C] 0 07/13/19 9:46 AM EDT Carrington Mann MD [facility] Clinical Notes 10-14-2021 to 07-12-2024 Patient InstructionsCarrington Mann MD - 07/12/2024 9:26 AM EDTTelephone Encounter - Ramya Johnson LPN - 04/16/2024 10:38 AM Radha Fuller RT(R) - 03/06/2024 8:40 AM EST Note Date & Type Note Facility 07-12-2024 Instructions Carrington Mann MD - 07/12/2024 9:36 AM EDT PLEASE STOP OUT FOR YOUR CHOLESTEROL CHECK BEFORE YOU LEAVE Screening schedule The following prevention plan is recommended: Depression Screening Never done BP Controlled (<130/80) due on 10/18/2023 Advance Directive Discussion Never done WHAT YOU CAN DO TO PREVENT FALLS Many falls can be prevented. By making some changes, you can lower your chances of falling. Four things YOU can do to prevent falls for you* and your caregiver 1. Begin a regular exercise program Exercise is one of the most important ways to lower your chances of falling. It makes you stronger and helps you feel better. Exercises that improve balance and coordination (like Alec Chi) are the most helpful. Lack of exercise leads to weakness and increases your chances of falling. Ask your doctor or health care provider about the best type of exercise program for you. 2. Have your health care provider review your medicines Have your doctor or pharmacist review all the medicines you take, even otex-mmd-jiftnry medicines. As you get older, the way medicines work in your body can change. Some medicines, or combinations of medicines, can make you sleepy or dizzy and can cause you to fall. 3. Have your vision checked Have your eyes checked by an eye doctor at least once a year. You may be wearing the wrong glasses or have a condition like glaucoma or cataracts that limits your vision. Poor vision can increase your chances of falling. 4. Make your home safer About half of all falls happen at home. To make your home safer: Remove things you can trip over (like papers, books, clothes, and shoes) from stairs and places where you walk. Remove small throw rugs or use double-sided tape to keep the rugs from slipping. Keep items you use often in cabinets you can reach easily without using a step stool. Have grab bars put in next to your toilet and in the tub or shower. Use non-slip mats in the bathtub and on shower floors. Improve the lighting in your home. As you get older, you need brighter lights to see well. Hang light-weight curtains or shades to reduce glare. Have handrails and lights put in on all staircases. Wear shoes both inside and outside the house. Avoid going barefoot or wearing slippers. For more information, contact: Centers for Disease Control and Prevention www.cdc.gov/injury * This information may not apply if you have certain medical conditions. documented in this encounter [facility] 07-12-2024 Note HNO ID: [id number] Author: CARRINGTON MANN MD Service: ? Author Type: Physician Type: Progress Notes Filed: 07/16/2024 07:49 Note Text: Missy Ricks is a 68 year old female here for a Medicare wellness visit. Patient notes that she started smoking again about 3 months ago. Up to 1/2 pack per day. Would like help with smoking cessation and would like rx for patches. Has order for repeat lipid panel. Taking crestor without side effects. Medicare Health Risk Assessment General Health Good Exercise: Minutes/Day 50 min Exercise: Days/Week 3 days Alcohol: Daily Use Never Alcohol: Drinks/Day Patient does not drink Alcohol: 6 or more drinks Never Feel off balance No Concerns: Teeth/Dentures No Concerns: Sexual function No Troubled by feelings None of the above Frequency: Eating healthy diet Nearly every day ADLs requiring help None of the above Safety precautions in home/vehicle Yes Smoke, vape, chews tobacco Yes, and I might quit Difficulty hearing No Difficulty seeing No Current Providers Specialists: I have reviewed specialist-related care of the patient in the medical record. Current care team: Patient Care Team: Carrington Mann MD as PCP - General (Family Medicine) Podlogar, ZHANG Hsieh.POULTRY DRESSING WORKER as Library Assistant (Family Medicine) Nate Cavazos MD (Cardiology) Olga Mijares APRN.CNP as Library Assistant (Family Medicine) Outside specialists seen: [facility] cardiology, Optho-Dr. Kate Medical/Family history review Reviewed and updated problem list, medical/surgical/family/social history, medications, and allergies. Opioid use review Opioid Medications (last 90 days) No data to display Anxiety/Depression screening (Lower risk for anxiety) Recommendation: no further intervention at this time Cognitive screening Mini Cog Score: 5 Cognitive screening reviewed and No further action needed (score 3-5). Functional Observation Was the patient's Timed Up AND Go test unsteady or >= 12 seconds? No Advance Care Planning Patient did not wish or was not able to name a surrogate decision maker or provide an advance care plan FULL CODE. Measurements BP 118/70 Pulse 70 Resp 16 LMP 12/11/2006 SpO2 96% Vision Screening: Right: 40 Left: Both: Latest Ref Rng 01/11/2024 WBC 3.70 - 11.00 k/uL 4.61 RBC 3.90 - 5.20 m/uL 4.12 Hemoglobin 11.5 - 15.5 g/dL 12.5 Hematocrit 36.0 - 46.0 % 38.3 MCV 80.0 - 100.0 fL 93.0 MCH 26.0 - 34.0 pg 30.3 MCHC 30.5 - 36.0 g/dL 32.6 RDW-CV 11.5 - 15.0 % 12.7 Platelet Count 150 - 400 k/uL 194 MPV 9.0 - 12.7 fL 11.2 Neut% % 47.9 Abs Neut (ANC) 1.45 - 7.50 k/uL 2.21 Lymph% % 43.0 Abs Lymph 1.00 - 4.00 k/uL 1.98 Weston% % 6.1 Abs Weston <0.87 k/uL 0.28 Eosin% % 1.7 Abs Eosin <0.46 k/uL 0.08 Baso% % 1.1 Abs Baso <0.11 k/uL 0.05 Immature Gran % % 0.2 IMMATURE GRANS (ABS) <0.10 k/uL <0.03 NRBC /100 WBC 0.0 Absolute nRBC <0.01 k/uL <0.01 DTYPE Auto Protein, Total 6.3 - 8.0 g/dL 7.1 Albumin 3.9 - 4.9 g/dL 4.5 Calcium 8.5 - 10.2 mg/dL 10.1 Bilirubin, Total 0.2 - 1.3 mg/dL 0.2 Alkaline Phosphatase 34 - 123 U/L 86 AST 13 - 35 U/L 24 ALT 7 - 38 U/L 15 Glucose 74 - 99 mg/dL 96 BUN 7 - 21 mg/dL 13 Creatinine 0.58 - 0.96 mg/dL 0.65 Sodium 136 - 144 mmol/L 141 Potassium 3.7 - 5.1 mmol/L 4.4 Chloride 98 - 107 mmol/L 105 CO2 22 - 30 mmol/L 25 Anion Gap 8 - 15 mmol/L 11 eGFR >=60 mL/min/1.73m? 97 Total Cholesterol, Nonfasting <200 mg/dL 242 (H) Triglycerides, Nonfasting <150 mg/dL 124 HDL Cholesterol, Nonfasting >39 mg/dL 38 (L) LDL Cholesterol Calculated, Nonfasting <100 mg/dL 179 (H) Non HDL Cholesterol, Nonfasting <130 mg/dL 204 (H) VLDL Cholesterol, Nonfasting <30 mg/dL 25 Total Chol/HDL Ratio, Nonfasting <5.10 mg/dL 6.37 (H) LDL/HDL Ratio, Nonfasting <2.54 mg/dL 4.71 (H) Hemoglobin A1C 4.3 - 5.6 % 5.2 Estimated Average Glucose mg/dL 103 TSH 0.270 - 4.200 mIU/L 1.470 Legend: (H) High (L) Low Assessment/Plan Medicare annual wellness visit, subsequent (Z) - ASSESSMENT/PLAN: 1. Medicare annual wellness visit, subsequent - ICD9: V70.0, ICD10: Z00.00 (primary diagnosis) Counseled on healthy diet and regular exercise - Fall avoidance information provided - Personalized prevention plan provided - Discussed need for and benefit of weight loss. No weight on file for this encounter. - Smoking cessation encouraged; discussed risks to health and quitting strategies. Patient is ready to quit and nicotine replacement prescribed 2. Decreased visual acuity - ICD9: 369.9, ICD10: H54.7 F/u with optho. 3. Essential hypertension - ICD9: 401.9, ICD10: I10 - Controlled - Recommend home blood pressure monitoring, to bring results to next visit - Encouraged sodium restriction, DASH or Mediterranean diet - Recommend regular aerobic exercise - HYDROCHLOROTHIAZIDE 25 MG TABLET - LISINOPRIL 10 MG TABLET 4. Hyperlipidemia, mixed - ICD9: 272.2, ICD10: (more content not included)... [facility] 07-12-2024 History of Present illness Narrative Images from the original note were not included. Missy Ricks is a 68 year old female here for a Medicare wellness visit. Patient notes that she started smoking again about 3 months ago. Up to 1/2 pack per day. Would like help with smoking cessation and would like rx for patches. Has order for repeat lipid panel. Taking crestor without side effects. Medicare Health Risk Assessment General Health Good Exercise: Minutes/Day 50 min Exercise: Days/Week 3 days Alcohol: Daily Use Never Alcohol: Drinks/Day Patient does not drink Alcohol: 6 or more drinks Never Feel off balance No Concerns: Teeth/Dentures No Concerns: Sexual function No Troubled by feelings None of the above Frequency: Eating healthy diet Nearly every day ADLs requiring help None of the above Safety precautions in home/vehicle Yes Smoke, vape, chews tobacco Yes, and I might quit Difficulty hearing No Difficulty seeing No Current Providers Specialists: I have reviewed specialist-related care of the patient in the medical record. Current care team: Patient Care Team: Carrington Mann MD as PCP - General (Family Medicine) Podlogar, ZHANG Hsieh.POULTRY DRESSING WORKER as Library Assistant (Family Medicine) Nate Cavazos MD (Cardiology) Olga Mijares APRN.DESIREE as Library Assistant (Family Medicine) Outside specialists seen: [facility] cardiology, Optho-Dr. Kate Medical/Family history review Reviewed and updated problem list, medical/surgical/family/social history, medications, and allergies. Opioid use review Opioid Medications (last 90 days) No data to display Anxiety/Depression screening (Lower risk for anxiety) Recommendation: no further intervention at this time Cognitive screening Mini Cog Score: 5 Cognitive screening reviewed and No further action needed (score 3-5). Functional Observation Was the patient's Timed Up & Go test unsteady or >= 12 seconds? No Advance Care Planning Patient did not wish or was not able to name a surrogate decision maker or provide an advance care plan FULL CODE. Measurements BP 118/70 Pulse 70 Resp 16 LMP 12/11/2006 SpO2 96% Vision Screening: Right: Left: Both: Latest Ref Rng 01/11/2024 WBC 3.70 - 11.00 k/uL 4.61 RBC 3.90 - 5.20 m/uL 4.12 Hemoglobin 11.5 - 15.5 g/dL 12.5 Hematocrit 36.0 - 46.0 % 38.3 MCV 80.0 - 100.0 fL 93.0 MCH 26.0 - 34.0 pg 30.3 MCHC 30.5 - 36.0 g/dL 32.6 RDW-CV 11.5 - 15.0 % 12.7 Platelet Count 150 - 400 k/uL 194 MPV 9.0 - 12.7 fL 11.2 Neut% % 47.9 Abs Neut (ANC) 1.45 - 7.50 k/uL 2.21 Lymph% % 43.0 Abs Lymph 1.00 - 4.00 k/uL 1.98 Weston% % 6.1 Abs Weston <0.87 k/uL 0.28 Eosin% % 1.7 Abs Eosin <0.46 k/uL 0.08 Baso% % 1.1 Abs Baso <0.11 k/uL 0.05 Immature Gran % % 0.2 IMMATURE GRANS (ABS) <0.10 k/uL <0.03 NRBC /100 WBC 0.0 Absolute nRBC <0.01 k/uL <0.01 DTYPE Auto Protein, Total 6.3 - 8.0 g/dL 7.1 Albumin 3.9 - 4.9 g/dL 4.5 Calcium 8.5 - 10.2 mg/dL 10.1 Bilirubin, Total 0.2 - 1.3 mg/dL 0.2 Alkaline Phosphatase 34 - 123 U/L 86 AST 13 - 35 U/L 24 ALT 7 - 38 U/L 15 Glucose 74 - 99 mg/dL 96 BUN 7 - 21 mg/dL 13 Creatinine 0.58 - 0.96 mg/dL 0.65 Sodium 136 - 144 mmol/L 141 Potassium 3.7 - 5.1 mmol/L 4.4 Chloride 98 - 107 mmol/L 105 CO2 22 - 30 mmol/L 25 Anion Gap 8 - 15 mmol/L 11 eGFR >=60 mL/min/1.73m 97 Total Cholesterol, Nonfasting <200 mg/dL 242 (H) Triglycerides, Nonfasting <150 mg/dL 124 HDL Cholesterol, Nonfasting >39 mg/dL 38 (L) LDL Cholesterol Calculated, Nonfasting <100 mg/dL 179 (H) Non HDL Cholesterol, Nonfasting <130 mg/dL 204 (H) VLDL Cholesterol, Nonfasting <30 mg/dL 25 Total Chol/HDL Ratio, Nonfasting <5.10 mg/dL 6.37 (H) LDL/HDL Ratio, Nonfasting <2.54 mg/dL 4.71 (H) Hemoglobin A1C 4.3 - 5.6 % 5.2 Estimated Average Glucose mg/dL 103 TSH 0.270 - 4.200 mIU/L 1.470 Legend: (H) High (L) Low Assessment/Plan Medicare annual wellness visit, subsequent () - ASSESSMENT/PLAN: 1. Medicare annual wellness visit, subsequent - ICD9: V70.0, ICD10: Z00.00 (primary diagnosis) Counseled on healthy diet and regular exercise - Fall avoidance information provided - Personalized prevention plan provided - Discussed need for and benefit of weight loss. No weight on file for this encounter. - Smoking cessation encouraged; discussed risks to health and quitting strategies. Patient is ready to quit and nicotine replacement prescribed 2. Decreased visual acuity - ICD9: 369.9, ICD10: H54.7 F/u with optho. 3. Essential hypertension - ICD9: 401.9, ICD10: I10 - Controlled - Recommend home blood pressure monitoring, to bring results to next visit - Encouraged sodium restriction, DASH or Mediterranean diet - Recommend regular aerobic exercise - HYDROCHLOROTHIAZIDE 25 MG TABLET - LISINOPRIL 10 MG TABLET 4. Hyperlipidemia, mixed - ICD9: 272.2, ICD10: E78.2 - Control undetermined, due for labs - Continue current medications - Counseled on healthy diet and regular exercise - ROSUVASTATIN 10 MG TABLET 5. Screening for depression - ICD9: V79.0, ICD10: Z13.31 negative - DEPRESSION SCREENING 6. Advance directive discussed with patient - ICD9: V65.49, ICD10: Z71.89 Given forms for living will and Healthcare POA. - ADVANCE CARE PLAN DISCUSSION 7. Tobacco use - ICD9: 305.1, ICD10: Z72.0 - Cessation encouraged. - Physiologic and physical aspects of tobacco addiction as well as strategies for quitting were discussed. - Counseling was given focusing on the harmful effects of this addiction especially given the patient's medical condition(s) which will be worsened because of the chemicals in tobacco. - Recommended to called 1-800-QUIT NOW - Prescription for nicoderm given - NICOTINE 14 MG/24 HR DAILY TRANSDERMAL PATCH - NICOTINE 7 MG/24 HR DAILY TRANSDERMAL PATCH Carrington Mann MD documented in this encounter [facility] 04-16-2024 Telephone encounter Note Patient notified. [facility] 04-16-2024 Miscellaneous Notes Patient notified. Rx sent. Recheck labs in 3 months. Pt had called in asking about her cholesterol. I told her it was elevated, and they had tried to call her and ended up sending her a letter about it. She said the Lipitor had given her diarrhea and she thought she should e on something to control it. Per TE from 01/11/25 Dr Mann wanted to put Pt on Crestor. Please send Rx to [facility] in [place]. Please call Pt back to let her know when it is sent in. She said to leave a message if she doesn't answer. Please let Pt know to come back in 3 months after starting medication to get labs drawn. documented in this encounter [facility] 04-16-2024 Telephone encounter Note Rx sent. Recheck labs in [address] [facility] 04-16-2024 Telephone encounter Note Pt had called in asking about her cholesterol. I told her it was elevated, and they had tried to call her and ended up sending her a letter about it. She said the Lipitor had given her diarrhea and she thought she should e on something to control it. Per TE from 01/11/25 Dr Mann wanted to put Pt on Crestor. Please send Rx to [facility] in [place]. Please call Pt back to let her know when it is sent in. She said to leave a message if she doesn't answer. Please let Pt know to come back in 3 months after starting medication to get labs drawn. [facility] 03-12-2024 Telephone encounter Note Noted [facility] Work Phone: 03-12-2024 Miscellaneous Notes Noted documented in this encounter [facility] 03-12-2024 Telephone encounter Note Pt notified. Recommended cardiology consult. She prefers [facility]. Pt will call to schedule her own appointment. Results forwarded. Will send formal referral. Bell Dixon APRN.CNP [facility] 03-12-2024 Miscellaneous Notes Pt notified. Recommended cardiology consult. She prefers [facility]. Pt will call to schedule her own appointment. Results forwarded. Will send formal referral. Bell Dixon APRN.CNP Left message for pt to call back regarding results. Plan to discuss with patient LDCT Lung Screen Results LungRADS category: 2s Incidentals: 4.5 cm ascending aortic ectasia Recommendations: Continue annual screening with LDCT in 12 months. Bell Dixon APRN.CNP March 07, 2024 12:21 PM documented in this encounter [facility] 03-07-2024 Telephone encounter Note Left message for pt to call back regarding results. Plan to discuss with patient LDCT Lung Screen Results LungRADS category: 2s Incidentals: 4.5 cm ascending aortic ectasia Recommendations: Continue annual screening with LDCT in 12 months. Bell Dixon APRN.CNP March 07, 2024 12:[address] [facility] 03-07-2024 Telephone encounter Note Patient returned call and went over results, notes from Dr Mann with understanding. [facility] 03-07-2024 Miscellaneous Notes Patient returned call and went over results, notes from Dr Mann with understanding. Called and left a voicemail for the patient to call back and ask for a nurse to receive the providers message. Phoned patient spoke with Parker, he will give her message to call back for results. 2 messages in computer for her. ----- Message from Carrington Mann MD sent at 03/01/2024 9:16 AM EST ----- DXA scan shows normal bone density. Recommend weight bearing exercise and 1,000 units of calcium and vitamin D daily. Repeat in 2 years. documented in this encounter [facility] 03-06-2024 Telephone encounter Note Called and left a voicemail for the patient to call back and ask for a nurse to receive the providers message. [facility] 03-06-2024 History of Present illness Narrative Radiology Service Progress Note PATIENT NAME: Missy Ricks DATE OF SERVICE: March 06, 2024 TIME: 3:14 PM PATIENT IDENTITY VERIFICATION COMPLETED USING TWO (2) IDENTIFIERS: Name and Date of confirmed by patient verbally. FALL SCREENING: Has the patient had 2 falls in the last year or 1 fall with injury or currently using an Ambulatory Assistive Device (Walker, Cane, Wheelchair, Crutches, etc.)? No PATIENT GENDER DATA: Female. status: : No status: NO. PATIENT RELEVANT IMPLANT DATA REVIEWED: Yes PATIENT PRESENTS WITH AN IMPLANTABLE OR ATTACHED RIVET SORTER: No RADIOLOGY DEPARTMENT: CT; Exam(s) Completed: Lung Screening PERIPHERAL IV DATA: Not applicable SIGNED BY: RT Ailin(Elke) March 06, 2024 3:14 PM documented in this encounter [facility] 03-06-2024 Note HNO ID: [id number] Author: RADHA DACOSTA RT (R) Service: ? Author Type: Director Of Rehabilitative Services Type: Progress Notes Filed: 03/06/2024 15:14 Note Text: Radiology Service Progress Note PATIENT NAME: Missy Ricks DATE OF SERVICE: March 06, 2024 TIME: 3:14 PM PATIENT IDENTITY VERIFICATION COMPLETED USING TWO (2) IDENTIFIERS: Name and Date of confirmed by patient verbally. FALL SCREENING: Has the patient had 2 falls in the last year or 1 fall with injury or currently using an Ambulatory Assistive Device (Walker, Cane, Wheelchair, Crutches, etc.)? No PATIENT GENDER DATA: Female. status: : No status: NO. PATIENT RELEVANT IMPLANT DATA REVIEWED: Yes PATIENT PRESENTS WITH AN IMPLANTABLE OR ATTACHED RIVET SORTER: No RADIOLOGY DEPARTMENT: CT; Exam(s) Completed: Lung Screening PERIPHERAL IV DATA: Not applicable SIGNED BY: RT Ailin(R) March 06, 2024 3:14 PM [facility] 03-01-2024 Telephone encounter Note Phoned patient spoke with Parker, he will give her message to call back for results. 2 messages in computer for her. [facility] 03-01-2024 Telephone encounter Note ----- Message from Carrington Mann MD sent at 03/01/2024 9:16 AM EST ----- DXA scan shows normal bone density. Recommend weight bearing exercise and 1,000 units of calcium and vitamin D daily. Repeat in [address] [facility] 03-01-2024 Telephone encounter Note Reviewed. [facility] 03-01-2024 Miscellaneous Notes Reviewed. Patient notified of results and provider's instructions. Patient verbalizes understanding. Patient is going to start the nicotine patches that were previously ordered. Diana Garza RN Phoned patient left message to return call and ask to speak to a nurse. ----- Message from Carrington Mann MD sent at 02/29/2024 11:26 AM EST ----- Normal pulmonary function testing. Negative for COPD. Recommend smoking cessation to help with cough. Let me know if she would like help with this. documented in this encounter [facility] 02-29-2024 Telephone encounter Note Patient notified of results and provider's instructions. Patient verbalizes understanding. Patient is going to start the nicotine patches that were previously ordered. Diana Garza RN [facility] 02-29-2024 Telephone encounter Note Phoned patient left message to return call and ask to speak to a nurse. [facility] 02-29-2024 Telephone encounter Note ----- Message from Carrington Mann MD sent at 02/29/2024 11:26 AM EST ----- Normal pulmonary function testing. Negative for COPD. Recommend smoking cessation to help with cough. Let me know if she would like help with this. [facility] 02-29-2024 History of Present illness Narrative Radiology Service Progress Note PATIENT NAME: Missy Ricks DATE OF SERVICE: February 29, 2024 TIME: 8:32 AM PATIENT IDENTITY VERIFICATION COMPLETED USING TWO (2) IDENTIFIERS: Name and Date of confirmed by patient verbally. FALL SCREENING: Has the patient had 2 falls in the last year or 1 fall with injury or currently using an Ambulatory Assistive Device (Walker, Cane, Wheelchair, Crutches, etc.)? No PATIENT GENDER DATA: Female. status: : No status: NO. PATIENT RELEVANT IMPLANT DATA REVIEWED: Not Applicable PATIENT PRESENTS WITH AN IMPLANTABLE OR ATTACHED RIVET SORTER: No RADIOLOGY DEPARTMENT: Bone Density PERIPHERAL IV DATA: Not applicable SIGNED BY: MICHAEL Pires) February 29, 2024 8:32 AM documented in this encounter [facility] 02-29-2024 Note HNO ID: [id number] Author: RAQUEL URRUTIA RT (R) Service: ? Author Type: Technologist Type: Progress Notes Filed: 02/29/2024 08:40 Note Text: Radiology Service Progress Note PATIENT NAME: Missy Ricks DATE OF SERVICE: February 29, 2024 TIME: 8:32 AM PATIENT IDENTITY VERIFICATION COMPLETED USING TWO (2) IDENTIFIERS: Name and Date of confirmed by patient verbally. FALL SCREENING: Has the patient had 2 falls in the last year or 1 fall with injury or currently using an Ambulatory Assistive Device (Walker, Cane, Wheelchair, Crutches, etc.)? No PATIENT GENDER DATA: Female. status: : No status: NO. PATIENT RELEVANT IMPLANT DATA REVIEWED: Not Applicable PATIENT PRESENTS WITH AN IMPLANTABLE OR ATTACHED RIVET SORTER: No RADIOLOGY DEPARTMENT: Bone Density PERIPHERAL IV DATA: Not applicable SIGNED BY: RT Pranay(R) February 29, 2024 8:32 AM [facility] 02-26-2024 Note HNO ID: [id number] Author: ADAN RUGGIERO RPFT Service: ? Author Type: Respiratory Therapist Type: Progress Notes Filed: 02/26/2024 10:33 Note Text: PULM FUNCTION: Provider: Carrington Mann MD Assisting Tech: Adan Ruggiero RPFT Spirometry w/BD: 1 DLCO: 1 [facility] 02-26-2024 History of Present illness Narrative PULM FUNCTION: Provider: Carrington Mann MD Assisting Tech: Adan Ruggiero RPFT Spirometry w/BD: 1 DLCO: 1 documented in this encounter [facility] 02-26-2024 Instructions Bell Dixon APRN.POULTRY DRESSING WORKER - 02/26/2024 9:[address] Lung Screen Results The CT scan that you will have done will show if you have any nodules (small spots) in your lungs that are suspicious for cancer. Around 90% of the patients who have this scan done are found to have at least one nodule. Most nodules are benign (not cancer) and of no harm to you at all. A specialist will make a scientific evaluation about whether or not a nodule is worrisome based on its size and shape. The radiologist who will read your scan will put it into one of four categories: LUNG-RADS Category Description Overall Probability of Malignancy Recommended Follow-Up 1 Negative No nodules and definitely benign (non-cancerous nodules) Essentially 0. 1 Year - Follow-up Low dose CT 2 Benign Appearance or Behavior Nodules with a very low likelihood of becoming cancer due to size or lack of growth Less than 1% 1 Year - Follow-up Low dose CT 3 Probably Benign Probably benign finding, short term follow-up recommended 1 to 2% 6 Months - Follow-up Low dose CT 4 Suspicious Findings for which additional diagnostic testing and/or biopsy is recommended Will be calculated based on nodule characteristics. Dependent on what is seen on the exam. (3 month follow-up CT, PET-CT, or biopsy) 0 Incomplete Findings suggestive of an inflammatory or infectious process AND/OR part of the lung cannot be evaluated Additional lung cancer screening CT imaging needed AND/OR comparison with prior chest CT imaging At times, we may see something outside of the lungs on the scan that could be a health concern. Below are some of the most common findings: S Clinically Significant or Potentially Clinically Significant Findings (non lung cancer) Referral or additional imaging/labs depending on result. Approximately 10% of people receive this result. Coronary Artery Calcifications (Moderate or Severe) - Referral to cardiology for further work-up and recommendations. Thyroid Nodule - TSH level and Thyroid Ultrasound dependent on size, referral to endocrinology. Adrenal Nodule - blood work and referral to endocrinology. Others Lung Cancer Screening hotline: [phone] Lung Cancer Screening [phone] Billing Questions: or [email or web address] Specialist Providers: (Sepideh Gomez PA-C; Anne Garcia CNP; Izabel Gallego CNP, Geri Roper CNP; Radha Rivas CNP; Leidy Church PA-C; Bell Dixon CNP; Missy Caceres CNP; Bethany Brink CNP; Jenny Cerrato CNP; Michelle Lara PA-C; Bruna Hodges PA-C; Carmen Owen CNP; Sada Arroyo CNP; Noreen Solares CNP): [phone] documented in this encounter [facility] 02-26-2024 Note HNO ID: [id number] Author: BELL DIXON APRN.POULTRY DRESSING WORKER Service: ? Author Type: Nurse Practitioner Type: Progress Notes Filed: 02/26/2024 11:23 Note Text: LUNG SCREENING VISIT PRIMARY CARE PHYSICIAN: Carrington Mann MD PULMONARY PROVIDER: none Results will be communicated via letter or electronic record if applicable. Visit Delivery: In Person Patient Visit Type: New to Screening Current or Ex-smoker? [Current Exam Type: baseline LDCT Number of Pack Years: 38 Current smoker (=0) REQUESTER: The referring provider advised the patient to have screening. HISTORY OF PRESENT ILLNESS: Missy Ricks is a 68 year old Active smoker who presents for lung screening. Currently smoking 10 cigarettes daily Respiratory symptoms include: SOB: Yes with any activity, including showering Chest tightness: No Coughing: Yes: With mucus Clear, light yellow Hemoptysis: No Wheezing: No Fever/Chills: No Recent Respiratory Infection: No Unintentional weight loss: No Last 6 Encounter Wt Readings: Date: Wt: 02/26/2024 91.6 kg (202 lb) 01/26/2024 91.8 kg (202 lb 6.1 oz) 01/11/2024 93 kg (205 lb) 11/06/2023 89 kg (196 lb 3.4 oz) 10/17/2022 88 kg (194 lb) 09/19/2022 88.2 kg (194 lb 6.4 oz) Walks a mile every day. ECOG PERFORMANCE STATUS: 0- Fully active, able to carry on all pre-disease performance w/o restriction. Modified Medical Research [place] Dyspnea Scale (MMRC) I only get breathless with strenous exercise 0 PAST MEDICAL HISTORY Diagnosis Date BPPV (benign paroxysmal positional vertigo) Dysplasia of cervix, unspecified teenager GERD (gastroesophageal reflux disease) Hypertension Mixed hyperlipidemia Obesity (BMI 30.0-34.9) PMH - PAST MEDICAL HISTORY OF 1998 UTERINE FIBROIDS Tobacco use PAST SURGICAL HISTORY Procedure Laterality Date PAST SURGICAL HISTORY OF 1983 CRYOTHERAPY FOR DYSPLASIA ULTRASOUND PELVIS 05/08/98,06/02/93 FAMILY HISTORY Problem Relation Age of Onset Diabetes Mother dialysis, Hypertension Mother Hypertension Father Parkinson?s Disease Father other (alzheimers) Father Skin Cancer Sister Breast Cancer Sister 50 Hypertension Brother other (colon polyps) Brother Hypertension Brother Diabetes Maternal Grandmother Lung Cancer Paternal Uncle Lung Cancer Paternal Uncle Lung Cancer Paternal Uncle nicotine (NICODERM) 21 mg/24 hr Apply 1 Patch as directed every 24 hours. nicotine (NICODERM) 14 mg/24 hr Apply 1 Patch as directed every 24 hours. No smoking with patch. nicotine (NICODERM) 7 mg/24 hr Apply 1 Patch as directed every 24 hours for 14 days. lisinopril (ZESTRIL) 10 mg tablet Take 1 tablet by mouth once daily. hydroCHLOROthiazide 25 mg tablet Take 1 tablet by mouth once daily. ALLERGIES Allergen Reactions Cashew Nut Rash Bactrim [Sulfametho* Myalgia Myalgias, photosensitivity and fever. Lipitor [Atorvastat* Diarrhea Penicillins Prednisone Intolerance Agitation, nervousness. The medications and allergies were reviewed and reconciled for this patient and deemed current. Lung Cancer Risk Factors: 1.Tobacco Use: Start Age 22, Quit for 8 years total Quit Age: N/A, Average packs per day 1, Pack Years 40 2. Passive Smoke Exposure: Yes, as an Adult 3. Personal hx of malignancy: No, Type of Cancer: 4. Significant exposures (1 year or more of exposure): None, 5. Race: White 6. Education: Some College 7. BMI:Body mass index is 31.89 kg/m?. Patient-entered Height: 5'6 Patient-entered Weight: 202 pounds 8. COPD: No 9. Pneumonia in the past 5 years: No 10. Is there a history of lung cancer in a first degree relative? No 11. Is there a history of lung cancer in a non-first degree relative? Yes 12. Is there a history of any other cancer in a first degree relative? Yes Health Maintenance Immunization History Administered Date(s) Administered COVID-19 original vaccine, age 12+ yr, monovalent ([employer] - PURPLE TOP) 03/11/2020 04/01/2020 influenza (IIV3) vaccine, age 6 mo - 64 yr, trivalent (AFLURIA, FLULAVAL, FLUVIRIN, FLUZONE) 12/18/2018 tetanus diphtheria pertussis (Tdap) vaccine, age 7+ yr (ADACEL, BOOSTRIX) 12/20/2015 Colonoscopy: Mammogram: 01/22/2024 DATA REVIEW I have directly visualized the testing documented: none Prior Imaging: Last CT/CTA Chest/Lungs No resulted procedures found. Last CT Chest - Impression Only No resulted procedures found. Last XR Chest - Impression Only XR CHEST PA/LAT Collected: 12/31/2015 2:21 PM (Final result) Impression: IMPRESSION: No acute radiographic abnormality. It Administrative Assistant: KENNETH Transcribe Date/Time: Jan 01 2016 12:18P... Pulmonary Function Testing: No textual results found for the specified procedure(s). PHYSICAL EXAM: BP 132/80 Pulse 100 Resp 18 Ht 169.5 cm (5' 6.73) Wt 91.6 kg (202 lb) LMP 12/11/2006 SpO2 96% BMI 31.89 kg/m? Deferred ASSESSMENT and RECOMMENDATIONS: 1. Screeni (more content not included)... [facility] 02-26-2024 History of Present illness Narrative Images from the original note were not included. LUNG SCREENING VISIT PRIMARY CARE PHYSICIAN: Carrington Mann MD PULMONARY PROVIDER: none Results will be communicated via letter or electronic record if applicable. Visit Delivery: In Person Patient Visit Type: New to Screening Current or Ex-smoker? [Current Exam Type: baseline LDCT Number of Pack Years: 38 Current smoker (=0) REQUESTER: The referring provider advised the patient to have screening. HISTORY OF PRESENT ILLNESS: Missy Ricks is a 68 year old Active smoker who presents for lung screening. Currently smoking 10 cigarettes daily Respiratory symptoms include: SOB: Yes with any activity, including showering Chest tightness: No Coughing: Yes: With mucus Clear, light yellow Hemoptysis: No Wheezing: No Fever/Chills: No Recent Respiratory Infection: No Unintentional weight loss: No Last 6 Encounter Wt Readings: Date: Wt: 02/26/2024 91.6 kg (202 lb) 01/26/2024 91.8 kg (202 lb 6.1 oz) 01/11/2024 93 kg (205 lb) 11/06/2023 89 kg (196 lb 3.4 oz) 10/17/2022 88 kg (194 lb) 09/19/2022 88.2 kg (194 lb 6.4 oz) Walks a mile every day. ECOG PERFORMANCE STATUS: 0- Fully active, able to carry on all pre-disease performance w/o restriction. Modified Medical Research [place] Dyspnea Scale (MMRC) I only get breathless with strenous exercise 0 PAST MEDICAL HISTORY Diagnosis Date BPPV (benign paroxysmal positional vertigo) Dysplasia of cervix, unspecified teenager GERD (gastroesophageal reflux disease) Hypertension Mixed hyperlipidemia Obesity (BMI 30.0-34.9) PMH - PAST MEDICAL HISTORY OF 1998 UTERINE FIBROIDS Tobacco use PAST SURGICAL HISTORY Procedure Laterality Date PAST SURGICAL HISTORY OF 1983 CRYOTHERAPY FOR DYSPLASIA ULTRASOUND PELVIS 05/08/98,06/02/93 FAMILY HISTORY Problem Relation Age of Onset Diabetes Mother dialysis, Hypertension Mother Hypertension Father Parkinson s Disease Father other (alzheimers) Father Skin Cancer Sister Breast Cancer Sister 50 Hypertension Brother other (colon polyps) Brother Hypertension Brother Diabetes Maternal Grandmother Lung Cancer Paternal Uncle Lung Cancer Paternal Uncle Lung Cancer Paternal Uncle nicotine (NICODERM) 21 mg/24 hr Apply 1 Patch as directed every 24 hours. nicotine (NICODERM) 14 mg/24 hr Apply 1 Patch as directed every 24 hours. No smoking with patch. nicotine (NICODERM) 7 mg/24 hr Apply 1 Patch as directed every 24 hours for 14 days. lisinopril (ZESTRIL) 10 mg tablet Take 1 tablet by mouth once daily. hydroCHLOROthiazide 25 mg tablet Take 1 tablet by mouth once daily. ALLERGIES Allergen Reactions Cashew Nut Rash Bactrim [Sulfametho* Myalgia Myalgias, photosensitivity and fever. Lipitor [Atorvastat* Diarrhea Penicillins Prednisone Intolerance Agitation, nervousness. The medications and allergies were reviewed and reconciled for this patient and deemed current. Lung Cancer Risk Factors: 1.Tobacco Use: Start Age 22, Quit for 8 years total Quit Age: N/A, Average packs per day 1, Pack Years 38 2. Passive Smoke Exposure: Yes, as an Adult 3. Personal hx of malignancy: No, Type of Cancer: 4. Significant exposures (1 year or more of exposure): None, 5. Race: White 6. Education: Some College 7. BMI:Body mass index is 31.89 kg/m . Patient-entered Height: 5'6 Patient-entered Weight: 202 pounds 8. COPD: No 9. Pneumonia in the past 5 years: No 10. Is there a history of lung cancer in a first degree relative? No 11. Is there a history of lung cancer in a non-first degree relative? Yes 12. Is there a history of any other cancer in a first degree relative? Yes Health Maintenance Immunization History Administered Date(s) Administered COVID-19 original vaccine, age 12+ yr, monovalent (PFIZER-BIONTBesstech - PURPLE TOP) 03/11/2020 04/01/2020 influenza (IIV3) vaccine, age 6 mo - 64 yr, trivalent (AFLURIA, FLULAVAL, FLUVIRIN, FLUZONE) 12/18/2018 tetanus diphtheria pertussis (Tdap) vaccine, age 7+ yr (ADACEL, BOOSTRIX) 12/20/2015 Colonoscopy: Mammogram: 01/22/2024 DATA REVIEW I have directly visualized the testing documented: none Prior Imaging: Last CT/CTA Chest/Lungs No resulted procedures found. Last CT Chest - Impression Only No resulted procedures found. Last XR Chest - Impression Only XR CHEST PA/LAT Collected: 12/31/2015 2:21 PM (Final result) Impression: IMPRESSION: No acute radiographic abnormality. It Administrative Assistant: KENNETH Transcribe Date/Time: Jan 01 2016 12:18P... Pulmonary Function Testing: No textual results found for the specified procedure(s). PHYSICAL EXAM: BP 132/80 Pulse 100 Resp 18 Ht 169.5 cm (5' 6.73) Wt 91.6 kg (202 lb) LMP 12/11/2006 SpO2 96% BMI 31.89 kg/m Deferred ASSESSMENT and RECOMMENDATIONS: 1. Screening for lung cancer: Six year risk for lung cancer: 2.57% [email or web address]://[email or web address] I have determined that the patient is eligible for a low dose CT based on age, absence of signs or symptoms of lung cancer, and total pack years: Yes. The patient and I engaged in shared decision making, including the use of one or more decision aids, to include benefits, harms, follow-up diagnostic testing, over-diagnosis, false positive rate, and total radiation exposure. The patient understands and feels comfortable with it: Yes. The patient was counseled on the importance of adherence to annual LDCT lung cancer screening, impact of comorbidities and ability or willingness to undergo diagnosis and treatment. The patient understands and feels comfortable with it:Yes. 2. Nicotine dependence: The patient was counseled on the importance of smoking cessation if current smoker and, if appropriate, offered additional tobacco cessation counseling services - Smoking Cessation Counseling. SMOKING CESSATION COUNSELING Smoking cessation methods including Nicotine Replacement Therapies and Behavior Modification were discussed with the patient and assistance offered. Has nicotine patches prescription from PCP. The medical conditions adversely affected by cigarette use include:COPD, Emphysema, and Lung Cancer. The patient is currently not ready to quit. I personally spent 2 minutes in counseling. The time spent in smoking cessation counseling is exclusive of any other counseling during this visit. 3. Shortness of breath: Associated persistent cough as well. PCP ordered spirometry would like to add on DLCO testing to check for emphysema severity as well. Follow up tbd. Encouraged smoking cessation. Bell Dixon APRN.CNP NPI #: [id number] 9:52 AM documented in this encounter [facility] 01-26-2024 Note HNO ID: [id number] Author: CARRINGTON MANN MD Service: ? Author Type: Physician Type: Progress Notes Filed: 01/26/2024 10:12 Note Text: Chief Complaint Patient presents with: BP Check HPI Missy Ricks is a 68 year old female who presents here today for Above Complaints.. HTN: Ms. Ricks indicates that she is feeling well and denies any symptoms referable to elevated blood pressure. Patient remembered to take her medication this morning. Specifically denies headache, chest pain, palpitations, dyspnea, and peripheral edema. Patient denies any side effects of her medication(s) and is compliant with their regimen. She does check BP's away from this office with average BP's in the 130/80's range. Last 3 Encounter BP Readings: Date: BP: 01/26/2024 106/78 01/11/2024 130/96[recheck[ 11/06/2023 126/86 Past medical history, appointments, medications, allergies reviewed. Previous Medical History PAST MEDICAL HISTORY Diagnosis Date BPPV (benign paroxysmal positional vertigo) Dysplasia of cervix, unspecified teenager GERD (gastroesophageal reflux disease) Hypertension Mixed hyperlipidemia Obesity (BMI 30.0-34.9) PMH - PAST MEDICAL HISTORY OF 1998 UTERINE FIBROIDS Tobacco use Previous Surgical History PAST SURGICAL HISTORY Procedure Laterality Date PAST SURGICAL HISTORY OF 1983 CRYOTHERAPY FOR DYSPLASIA ULTRASOUND PELVIS 05/08/98,06/02/93 Family History FAMILY HISTORY Problem Relation Age of Onset Diabetes Mother dialysis, Hypertension Mother Hypertension Father Parkinson?s Disease Father other (alzheimers) Father Skin Cancer Sister Hypertension Brother other (colon polyps) Brother Hypertension Brother Diabetes Maternal Grandmother Breast Cancer Sister 50 Patient Allergies ALLERGIES Allergen Reactions Cashew Nut Rash Bactrim [Sulfametho* Myalgia Myalgias, photosensitivity and fever. Lipitor [Atorvastat* Diarrhea Penicillins Prednisone Intolerance Agitation, nervousness. Current Medications Current Outpatient Medications on File Prior to Visit Medication Sig nicotine (NICODERM) 21 mg/24 hr Apply 1 Patch as directed every 24 hours. nicotine (NICODERM) 14 mg/24 hr Apply 1 Patch as directed every 24 hours. No smoking with patch. nicotine (NICODERM) 7 mg/24 hr Apply 1 Patch as directed every 24 hours for 14 days. lisinopril (ZESTRIL) 10 mg tablet Take 1 tablet by mouth once daily. hydroCHLOROthiazide 25 mg tablet Take 1 tablet by mouth once daily. No current facility-administered medications on file prior to visit. Social History Social History Tobacco Use Smoking status: Every Day Current packs/day: 0.00 Average packs/day: 1 pack/day for 35.0 years (35.0 ttl pk-yrs) Types: Cigarettes Start date: 12/27/1980 Last attempt to quit: 12/28/2015 Years since quittin.0 Smokeless tobacco: Never Tobacco comments: used to smoke 1 pack per day Vaping Use Vaping status: Never Used Substance Use Topics Alcohol use: No Drug use: No Review of Symptoms REVIEW OF SYSTEMS GENERAL: No weight loss, malaise or fevers RESPIRATORY: Negative for cough, hemoptysis, wheezing, COPD, dyspnea or shortness of breath CARDIOVASCULAR: Negative for chest pain, leg swelling, hypertension, CHF or palpitations GI: No nausea, vomiting, or diarrhea SKIN: Negative for lesions, rash, and itching EXAM: BP 106/78 Pulse 92 Resp 18 Wt 91.8 kg (202 lb 6.1 oz) LMP 12/11/2006 SpO2 98% BMI 30.77 kg/m? General Appearance: Well appearing, alert, in no acute distress, well-hydrated, well nourished.. Skin: Skin color, texture, turgor normal, no suspicious rashes or lesions. Lungs: Lungs clear to auscultation. No wheezing, rhonchi, rales.. Heart: RRR without murmur, gallop, or rubs. No ectopy. Abdomen: Normal abdominal exam, Abdomen soft, non-tender. Bowel sounds normal. No masses, organomegaly. Extremities: No deformities, edema, skin discoloration, clubbing or cyanosis. Good capillary refill. . Health Maintenance List Depression Screening Never done Lung Cancer Screening Never done Bone Density Screening Never done Advance Directive Discussion Never done BP Controlled (<130/80) due on 10/18/2023 Influenza Vaccine(1) due on 09/16/2024 Anxiety Screening due on 01/10/2025 Shingrix Vaccine(1 of 2) due on 01/10/2025 Covid-19 Vaccine(3 - season) due on 01/10/2025 Pneumococcal Vaccine: 65+(1 of 2 - PCV) due on 01/10/2025 Annual PCP Team Chronic Disease Visit due on 01/10/2025 Mammogram Screening due on 01/18/2025 Colorectal Cancer Screening due on 11/11/2025 DTaP,Tdap,Td Vaccine(2 - Td or Tdap) due on 12/19/2025 Diabetes Screening due on 01/10/2027 Lipid Screening due on 01/10/2029 RSV Vaccine(1 - 1-dose 75+ series) due on 2032 Hepatitis C Screening Completed Cervical Cancer Screening Discontinued ASSESSMENT/PLAN: 1. Essential hypertension - ICD9: 401.9, ICD10: I10 (more content not included)... [facility] 01-26-2024 History of Present illness Narrative Chief Complaint Patient presents with: BP Check HPI Missy Ricks is a 68 year old female who presents here today for Above Complaints.. HTN: Ms. Ricks indicates that she is feeling well and denies any symptoms referable to elevated blood pressure. Patient remembered to take her medication this morning. Specifically denies headache, chest pain, palpitations, dyspnea, and peripheral edema. Patient denies any side effects of her medication(s) and is compliant with their regimen. She does check BP's away from this office with average BP's in the 130/80's range. Last 3 Encounter BP Readings: Date: BP: 01/26/2024 106/78 01/11/2024 130/96[recheck[ 11/06/2023 126/86 Past medical history, appointments, medications, allergies reviewed. Previous Medical History PAST MEDICAL HISTORY Diagnosis Date BPPV (benign paroxysmal positional vertigo) Dysplasia of cervix, unspecified teenager GERD (gastroesophageal reflux disease) Hypertension Mixed hyperlipidemia Obesity (BMI 30.0-34.9) PMH - PAST MEDICAL HISTORY OF 1998 UTERINE FIBROIDS Tobacco use Previous Surgical History PAST SURGICAL HISTORY Procedure Laterality Date PAST SURGICAL HISTORY OF 1983 CRYOTHERAPY FOR DYSPLASIA ULTRASOUND PELVIS 05/08/98,06/02/93 Family History FAMILY HISTORY Problem Relation Age of Onset Diabetes Mother dialysis, Hypertension Mother Hypertension Father Parkinson s Disease Father other (alzheimers) Father Skin Cancer Sister Hypertension Brother other (colon polyps) Brother Hypertension Brother Diabetes Maternal Grandmother Breast Cancer Sister 50 Patient Allergies ALLERGIES Allergen Reactions Cashew Nut Rash Bactrim [Sulfametho* Myalgia Myalgias, photosensitivity and fever. Lipitor [Atorvastat* Diarrhea Penicillins Prednisone Intolerance Agitation, nervousness. Current Medications Current Outpatient Medications on File Prior to Visit Medication Sig nicotine (NICODERM) 21 mg/24 hr Apply 1 Patch as directed every 24 hours. nicotine (NICODERM) 14 mg/24 hr Apply 1 Patch as directed every 24 hours. No smoking with patch. nicotine (NICODERM) 7 mg/24 hr Apply 1 Patch as directed every 24 hours for 14 days. lisinopril (ZESTRIL) 10 mg tablet Take 1 tablet by mouth once daily. hydroCHLOROthiazide 25 mg tablet Take 1 tablet by mouth once daily. No current facility-administered medications on file prior to visit. Social History Social History Tobacco Use Smoking status: Every Day Current packs/day: 0.00 Average packs/day: 1 pack/day for 35.0 years (35.0 ttl pk-yrs) Types: Cigarettes Start date: 12/27/1980 Last attempt to quit: 12/28/2015 Years since quittin.0 Smokeless tobacco: Never Tobacco comments: used to smoke 1 pack per day Vaping Use Vaping status: Never Used Substance Use Topics Alcohol use: No Drug use: No Review of Symptoms REVIEW OF SYSTEMS GENERAL: No weight loss, malaise or fevers RESPIRATORY: Negative for cough, hemoptysis, wheezing, COPD, dyspnea or shortness of breath CARDIOVASCULAR: Negative for chest pain, leg swelling, hypertension, CHF or palpitations GI: No nausea, vomiting, or diarrhea SKIN: Negative for lesions, rash, and itching EXAM: BP 106/78 Pulse 92 Resp 18 Wt 91.8 kg (202 lb 6.1 oz) LMP 12/11/2006 SpO2 98% BMI 30.77 kg/m General Appearance: Well appearing, alert, in no acute distress, well-hydrated, well nourished.. Skin: Skin color, texture, turgor normal, no suspicious rashes or lesions. Lungs: Lungs clear to auscultation. No wheezing, rhonchi, rales.. Heart: RRR without murmur, gallop, or rubs. No ectopy. Abdomen: Normal abdominal exam, Abdomen soft, non-tender. Bowel sounds normal. No masses, organomegaly. Extremities: No deformities, edema, skin discoloration, clubbing or cyanosis. Good capillary refill. . Health Maintenance List Depression Screening Never done Lung Cancer Screening Never done Bone Density Screening Never done Advance Directive Discussion Never done BP Controlled (<130/80) due on 10/18/2023 Influenza Vaccine(1) due on 09/16/2024 Anxiety Screening due on 01/10/2025 Shingrix Vaccine(1 of 2) due on 01/10/2025 Covid-19 Vaccine(3 - season) due on 01/10/2025 Pneumococcal Vaccine: 65+(1 of 2 - PCV) due on 01/10/2025 Annual PCP Team Chronic Disease Visit due on 01/10/2025 Mammogram Screening due on 01/18/2025 Colorectal Cancer Screening due on 11/11/2025 DTaP,Tdap,Td Vaccine(2 - Td or Tdap) due on 12/19/2025 Diabetes Screening due on 01/10/2027 Lipid Screening due on 01/10/2029 RSV Vaccine(1 - 1-dose 75+ series) due on 2032 Hepatitis C Screening Completed Cervical Cancer Screening Discontinued ASSESSMENT/PLAN: 1. Essential hypertension - ICD9: 401.9, ICD10: I10 - Controlled - Continue current medications - Recommend home blood pressure monitoring, to bring results to next visit - Encouraged sodium restriction, DASH or Mediterranean diet - Recommend regular aerobic exercise Carrington Mann MD documented in this encounter [facility] 01-22-2024 Telephone encounter Note Pt notified and verbalized understanding Rishi Salinas MA [facility] 01-22-2024 Miscellaneous Notes Pt notified and verbalized understanding Rishi Salinas MA Please let patient know her mammogram is negative. Patient should continue with annual screenings. documented in this encounter [facility] 01-22-2024 Telephone encounter Note Please let patient know her mammogram is negative. Patient should continue with annual screenings. [facility] Work Phone: 01-19-2024 History of Present illness Narrative Radiology Service Progress Note PATIENT NAME: Missy Ricks DATE OF SERVICE: January 19, 2024 TIME: 9:12 AM PATIENT IDENTITY VERIFICATION COMPLETED USING TWO (2) IDENTIFIERS: Name and Date of confirmed by patient verbally. FALL SCREENING: Has the patient had 2 falls in the last year or 1 fall with injury or currently using an Ambulatory Assistive Device (Walker, Cane, Wheelchair, Crutches, etc.)? No PATIENT GENDER DATA: Female. status: : No status: NO. PATIENT RELEVANT IMPLANT DATA REVIEWED: Not Applicable PATIENT PRESENTS WITH AN IMPLANTABLE OR ATTACHED RIVET SORTER: No RADIOLOGY DEPARTMENT: Mammography PERIPHERAL IV DATA: Not applicable SIGNED BY: Yuan Hilton January 19, 2024 9:12 AM documented in this encounter [facility] 01-19-2024 Note HNO ID: [id number] Author: MARTHA SANDOVAL Mammo Tech Service: ? Author Type: Director Of Rehabilitative Services Type: Progress Notes Filed: 01/19/2024 09:12 Note Text: Radiology Service Progress Note PATIENT NAME: Missy Ricks DATE OF SERVICE: January 19, 2024 TIME: 9:12 AM PATIENT IDENTITY VERIFICATION COMPLETED USING TWO (2) IDENTIFIERS: Name and Date of confirmed by patient verbally. FALL SCREENING: Has the patient had 2 falls in the last year or 1 fall with injury or currently using an Ambulatory Assistive Device (Walker, Cane, Wheelchair, Crutches, etc.)? No PATIENT GENDER DATA: Female. status: : No status: NO. PATIENT RELEVANT IMPLANT DATA REVIEWED: Not Applicable PATIENT PRESENTS WITH AN IMPLANTABLE OR ATTACHED RIVET SORTER: No RADIOLOGY DEPARTMENT: Mammography PERIPHERAL IV DATA: Not applicable SIGNED BY: Yuan Hilton January 19, 2024 9:12 AM [facility] 01-16-2024 Telephone encounter Note Patient read angellaDomainex message. Letter sent. Ramya Johnson LPN [facility] 01-16-2024 Miscellaneous Notes Patient read lilia message. Letter sent. Ramya Johnson LPN [employer] message sent to pt asking for a return call back regarding her recent lab results. Notified to speak with Triage Nurse. Daisy House MA Message left with pt to have pt call back. Blaire Elmore MA Left a message for pt to call the office and ask to speak to a nurse. Gwendolyn Byrne LPN ----- Message from Carrington Mann MD sent at 01/12/2024 11:17 AM EDT ----- Normal labs aside from high cholesterol. Based on age and risk factors, patient is moderate risk for heart attack or stroke in the next 10 years. Recommend moderate intensity statin daily and recheck labs in 3 months. Most common side effect: muscle aches. She has been in atorvastatin in the past, would recommend trial of Crestor instead. If agreeable, will send rx to requested pharmacy. The 10-year ASCVD risk score (Vijay DK, et al., 2019) is: 18.6% Values used to calculate the score: Age: 68 years Sex: Female Is Non- : No Diabetic: No Tobacco smoker: Yes Systolic Blood Pressure: 130 mmHg Is BP treated: Yes HDL Cholesterol: 38 mg/dL Total Cholesterol: 242 mg/dL documented in this encounter [facility] 01-16-2024 Telephone encounter Note Mychart message sent to pt asking for a return call back regarding her recent lab results. Notified to speak with FM Triage Nurse. Daisy House MA [facility] 01-15-2024 Telephone encounter Note Message left with pt to have pt call back. Blaire Elmore MA [facility] 01-12-2024 Telephone encounter Note Left a message for pt to call the office and ask to speak to a nurse. Gwendolyn Byrne LPN [facility] 01-12-2024 Telephone encounter Note ----- Message from Carrington Mann MD sent at 01/12/2024 11:17 AM EDT ----- Normal labs aside from high cholesterol. Based on age and risk factors, patient is moderate risk for heart attack or stroke in the next 10 years. Recommend moderate intensity statin daily and recheck labs in 3 months. Most common side effect: muscle aches. She has been in atorvastatin in the past, would recommend trial of Crestor instead. If agreeable, will send rx to requested pharmacy. The 10-year ASCVD risk score (Vijay CONTRERAS, et al., 2019) is: 18.6% Values used to calculate the score: Age: 68 years Sex: Female Is Non- : No Diabetic: No Tobacco smoker: Yes Systolic Blood Pressure: 130 mmHg Is BP treated: Yes HDL Cholesterol: 38 mg/dL Total Cholesterol: 242 mg/dL [facility] 01-11-2024 Instructions Carrington Mann MD - 01/11/2024 12:48 PM EDT BONE MINERAL DENSITY PATIENT INSTRUCTIONS ======= Bone mineral density testing measures the amount of calcium in certain parts of your bones. This information determines how strong your bones are. The test is used to detect osteoporosis, a disease in which the bone's mineral content and density are low, increasing a person's risk of fractures. The lumbar spine (lower back) and the hip are the skeletal sites usually examined. For the test, remember that: 1. You cannot take this test if you are . 2. Eat a normal diet on the day of the test. 3. Take your medications as you normally would. 4. DO NOT take calcium supplements (such as Tums) for 24 hours before the test. 5. On the day of the test, leave valuables (jewelry or credit cards) at home. 6. The test should be performed prior to oral, rectal or IV contrast studies, or at least 7 days after any of these studies. For the test, you may be asked to wear a hospital gown. You will lie on your back, on a padded table, in a comfortable position. Generally, you can resume your usual activities immediately. documented in this encounter [facility] 01-11-2024 Note HNO ID: [id number] Author: CARRINGTON MANN MD Service: ? Author Type: Physician Type: Progress Notes Filed: 01/18/2024 11:00 Note Text: Chief Complaint Patient presents with: Follow Up HPI Missy Ricks is a 68 year old female who presents here today for routine check up. Patient has been in good health without recent hospitalizations, ER visits, or falls. Patient complaining of persistent productive with yellow or white sputum in the last 3-4 months. Treating with [place] cough drops which does help. Denies fever/chills, chest pain, chest congestion, SOB, wheezing. Smoking 1/2-1 pack per day for about 35 years. Thinking about quitting and would like rx for patches. Patient states that she stopped taking her lipitor about 6 months ago because of diarrhea. Symptoms resolved after cessation. States that she has been trying to adhere to low sodium and low cholesterol diet. Walking 3 times per week for exercise. Due for repeat labs. If still elevated, would like to try alternative rx. HTN: Ms. Ricks indicates that she is feeling well and denies any symptoms referable to elevated blood pressure. Thinks she forgot her medication this morning. Specifically denies headache, chest pain, palpitations, dyspnea, and peripheral edema. Patient denies any side effects of her medication(s) and is compliant with their regimen. She does check BP's away from this office with average BP's in the 110/80's range. Last 3 Encounter BP Readings: Date: BP: 01/11/2024 140/90 11/06/2023 126/86 10/17/2022 122/80 Denies recent GERD or vertigo symptoms recently. Agreeable to lung cancer screening and DXA scan. Mammogram already ordered and needs completed. Cologuard negative last year. Refusing vaccinations today. Past medical history, appointments, medications, allergies reviewed. Previous Medical History PAST MEDICAL HISTORY Diagnosis Date BPPV (benign paroxysmal positional vertigo) Dysplasia of cervix, unspecified teenager GERD (gastroesophageal reflux disease) Hypertension Mixed hyperlipidemia Obesity (BMI 30.0-34.9) PMH - PAST MEDICAL HISTORY OF 1998 UTERINE FIBROIDS Tobacco use Previous Surgical History PAST SURGICAL HISTORY Procedure Laterality Date PAST SURGICAL HISTORY OF 1983 CRYOTHERAPY FOR DYSPLASIA ULTRASOUND PELVIS 05/08/98,06/02/93 Family History FAMILY HISTORY Problem Relation Age of Onset Diabetes Mother dialysis, Hypertension Mother Hypertension Father Parkinson?s Disease Father other (alzheimers) Father Skin Cancer Sister Hypertension Brother other (colon polyps) Brother Hypertension Brother Diabetes Maternal Grandmother Breast Cancer Sister 50 Patient Allergies ALLERGIES Allergen Reactions Cashew Nut Rash Bactrim [Sulfametho* Myalgia Myalgias, photosensitivity and fever. Penicillins Prednisone Intolerance Agitation, nervousness. Current Medications Current Outpatient Medications on File Prior to Visit Medication Sig atorvastatin (LIPITOR) 20 mg tablet Take 1 tablet by mouth daily at bedtime. For cholesterol. hydroCHLOROthiazide 25 mg tablet Take 1 tablet by mouth once daily. lisinopril (ZESTRIL) 10 mg tablet Take 1 tablet by mouth once daily. No current facility-administered medications on file prior to visit. Social History Social History Tobacco Use Smoking status: Every Day Current packs/day: 0.00 Average packs/day: 1 pack/day for 35.0 years (35.0 ttl pk-yrs) Types: Cigarettes Start date: 12/27/1980 Last attempt to quit: 12/28/2015 Years since quittin.0 Smokeless tobacco: Never Tobacco comments: used to smoke 1 pack per day Vaping Use Vaping status: Never Used Substance Use Topics Alcohol use: No Drug use: No Review of Symptoms REVIEW OF SYSTEMS GENERAL: No weight loss, malaise or fevers HEENT: Negative for frequent or significant headaches, No changes in hearing or vision, no nose bleeds or other nasal problems NECK: Negative for lumps, goiter, pain and significant neck swelling RESPIRATORY: See HPI CARDIOVASCULAR: Negative for chest pain, leg swelling, hypertension, CHF or palpitations GI: No nausea, vomiting, or diarrhea : No history of dysuria, frequency or incontinence RESOURCE DEVELOPMENT DIRECTOR: Negative for abnormal vaginal bleeding, abnormal vaginal discharge MUSCULOSKELETAL: Negative for joint pain or swelling, back pain or muscle pain SKIN: Negative for lesions, rash, and itching PSYCH: Negative for sleep disturbance, mood disorder and recent psychosocial stressors HEMATOLOGY/LYMPHOLOGY: Negative for prolonged bleeding, bruising easily or swollen nodes ENDOCRINE: Negative for cold or heat intolerance, polyuria, polydipsia and goiter NEURO: No history of headaches, syncope, paralysis, seizures or tremors EXAM: BP 130/96 Pulse 95 Wt 93 kg (205 lb) LMP 12/11/2006 SpO2 98% BMI 31.17 kg/m? General Appearance: Well appearing, alert, in no acute (more content not included)... [facility] 01-11-2024 History of Present illness Narrative Chief Complaint Patient presents with: Follow Up HPI Missy Ricks is a 68 year old female who presents here today for routine check up. Patient has been in good health without recent hospitalizations, ER visits, or falls. Patient complaining of persistent productive with yellow or white sputum in the last 3-4 months. Treating with [place] cough drops which does help. Denies fever/chills, chest pain, chest congestion, SOB, wheezing. Smoking 1/2-1 pack per day for about 35 years. Thinking about quitting and would like rx for patches. Patient states that she stopped taking her lipitor about 6 months ago because of diarrhea. Symptoms resolved after cessation. States that she has been trying to adhere to low sodium and low cholesterol diet. Walking 3 times per week for exercise. Due for repeat labs. If still elevated, would like to try alternative rx. HTN: Ms. Ricks indicates that she is feeling well and denies any symptoms referable to elevated blood pressure. Thinks she forgot her medication this morning. Specifically denies headache, chest pain, palpitations, dyspnea, and peripheral edema. Patient denies any side effects of her medication(s) and is compliant with their regimen. She does check BP's away from this office with average BP's in the 110/80's range. Last 3 Encounter BP Readings: Date: BP: 01/11/2024 140/90 11/06/2023 126/86 10/17/2022 122/80 Denies recent GERD or vertigo symptoms recently. Agreeable to lung cancer screening and DXA scan. Mammogram already ordered and needs completed. Cologuard negative last year. Refusing vaccinations today. Past medical history, appointments, medications, allergies reviewed. Previous Medical History PAST MEDICAL HISTORY Diagnosis Date BPPV (benign paroxysmal positional vertigo) Dysplasia of cervix, unspecified teenager GERD (gastroesophageal reflux disease) Hypertension Mixed hyperlipidemia Obesity (BMI 30.0-34.9) PMH - PAST MEDICAL HISTORY OF 1998 UTERINE FIBROIDS Tobacco use Previous Surgical History PAST SURGICAL HISTORY Procedure Laterality Date PAST SURGICAL HISTORY OF 1983 CRYOTHERAPY FOR DYSPLASIA ULTRASOUND PELVIS 05/08/98,06/02/93 Family History FAMILY HISTORY Problem Relation Age of Onset Diabetes Mother dialysis, Hypertension Mother Hypertension Father Parkinson s Disease Father other (alzheimers) Father Skin Cancer Sister Hypertension Brother other (colon polyps) Brother Hypertension Brother Diabetes Maternal Grandmother Breast Cancer Sister 50 Patient Allergies ALLERGIES Allergen Reactions Cashew Nut Rash Bactrim [Sulfametho* Myalgia Myalgias, photosensitivity and fever. Penicillins Prednisone Intolerance Agitation, nervousness. Current Medications Current Outpatient Medications on File Prior to Visit Medication Sig atorvastatin (LIPITOR) 20 mg tablet Take 1 tablet by mouth daily at bedtime. For cholesterol. hydroCHLOROthiazide 25 mg tablet Take 1 tablet by mouth once daily. lisinopril (ZESTRIL) 10 mg tablet Take 1 tablet by mouth once daily. No current facility-administered medications on file prior to visit. Social History Social History Tobacco Use Smoking status: Every Day Current packs/day: 0.00 Average packs/day: 1 pack/day for 35.0 years (35.0 ttl pk-yrs) Types: Cigarettes Start date: 12/27/1980 Last attempt to quit: 12/28/2015 Years since quittin.0 Smokeless tobacco: Never Tobacco comments: used to smoke 1 pack per day Vaping Use Vaping status: Never Used Substance Use Topics Alcohol use: No Drug use: No Review of Symptoms REVIEW OF SYSTEMS GENERAL: No weight loss, malaise or fevers HEENT: Negative for frequent or significant headaches, No changes in hearing or vision, no nose bleeds or other nasal problems NECK: Negative for lumps, goiter, pain and significant neck swelling RESPIRATORY: See HPI CARDIOVASCULAR: Negative for chest pain, leg swelling, hypertension, CHF or palpitations GI: No nausea, vomiting, or diarrhea : No history of dysuria, frequency or incontinence RESOURCE DEVELOPMENT DIRECTOR: Negative for abnormal vaginal bleeding, abnormal vaginal discharge MUSCULOSKELETAL: Negative for joint pain or swelling, back pain or muscle pain SKIN: Negative for lesions, rash, and itching PSYCH: Negative for sleep disturbance, mood disorder and recent psychosocial stressors HEMATOLOGY/LYMPHOLOGY: Negative for prolonged bleeding, bruising easily or swollen nodes ENDOCRINE: Negative for cold or heat intolerance, polyuria, polydipsia and goiter NEURO: No history of headaches, syncope, paralysis, seizures or tremors EXAM: BP 130/96 Pulse 95 Wt 93 kg (205 lb) LMP 12/11/2006 SpO2 98% BMI 31.17 kg/m General Appearance: Well appearing, alert, in no acute distress, well-hydrated, well nourished.. Skin: Skin color, texture, turgor normal, no suspicious rashes or lesions. Head: Normocephalic, no masses, lesions, tenderness or abnormalities. Eyes: Anicteric sclera. Pupils are equally round and reactive to light. Extraocular movements are intact. . Ears: External ears normal, canals clear. Nose/Sinuses: Nares normal, septum midline, mucosa normal, no drainage or sinus tenderness. Oropharynx: Lips, mucosa, and tongue normal, teeth and gums normal, oropharynx normal. Neck: Supple, no adenopathy; thyroid symmetric, normal size, no bruits. Lungs: Lungs clear to auscultation. No wheezing, rhonchi, rales.. Heart: RRR without murmur, gallop, or rubs. No ectopy. Abdomen: Normal abdominal exam, Abdomen soft, non-tender. Bowel sounds normal. No masses, organomegaly. Extremities: No deformities, edema, skin discoloration, clubbing or cyanosis. Good capillary refill. . Peripheral Pulses: Normal. Lymph Nodes: No cervical lymphadenopathy and No supraclavicular lymphadenopathy. Health Maintenance List Pneumococcal Vaccine: 65+(1 of 2 - PCV) Never done Depression Screening Never done Anxiety Screening Never done Lung Cancer Screening Never done Shingrix Vaccine(1 of 2) Never done Mammogram Screening due on 01/01/2022 Bone Density Screening Never done Advance Directive Discussion Never done BP Controlled (<130/80) due on 10/18/2023 Influenza Vaccine(1) due on 11/19/2023 Covid-19 Vaccine(3 - season) due on 11/19/2023 Annual PCP Team Chronic Disease Visit due on 11/05/2024 Diabetes Screening due on 09/19/2025 Colorectal Cancer Screening due on 11/11/2025 DTaP,Tdap,Td Vaccine(2 - Td or Tdap) due on 12/19/2025 Lipid Screening due on 09/20/2027 RSV Vaccine(1 - 1-dose 75+ series) due on 2032 Hepatitis C Screening Completed Cervical Cancer Screening Discontinued Data reviewed Latest Ref Rng 09/19/2022 11/11/2022 WBC 3.70 - 11.00 k/uL 4.30 RBC 3.90 - 5.20 m/uL 4.47 Hemoglobin 11.5 - 15.5 g/dL 13.4 Hematocrit 36.0 - 46.0 % 41.3 MCV 80.0 - 100.0 fL 92.4 MCH 26.0 - 34.0 pg 30.0 MCHC 30.5 - 36.0 g/dL 32.4 RDW-CV 11.5 - 15.0 % 13.2 Platelet Count 150 - 400 k/uL 199 MPV 9.0 - 12.7 fL 11.1 Neut% % 53.9 Abs Neut (ANC) 1.45 - 7.50 k/uL 2.32 Lymph% % 33.3 Abs Lymph 1.00 - 4.00 k/uL 1.43 [place]% % 9.1 Abs [place] <0.87 k/uL 0.39 Eosin% % 2.6 Abs Eosin <0.46 k/uL 0.11 Baso% % 0.9 Abs Baso <0.11 k/uL 0.04 Immature Gran % % 0.2 IMMATURE GRANS (ABS) <0.10 k/uL <0.03 NRBC /100 WBC 0.0 Absolute nRBC <0.01 k/uL <0.01 DTYPE Auto Protein, Total 6.3 - 8.0 g/dL 7.4 Albumin 3.9 - 4.9 g/dL 4.8 Calcium 8.5 - 10.2 mg/dL 10.5 (H) Bilirubin, Total 0.2 - 1.3 mg/dL 0.3 Alkaline Phosphatase 34 - 123 U/L 80 AST 13 - 35 U/L 18 ALT 7 - 38 U/L 14 Glucose 74 - 99 mg/dL 100 (H) BUN 7 - 21 mg/dL 15 Creatinine 0.58 - 0.96 mg/dL 0.71 Sodium 136 - 144 mmol/L 138 Potassium 3.7 - 5.1 mmol/L 4.9 Chloride 97 - 105 mmol/L 101 CO2 22 - 30 mmol/L 25 Anion Gap 9 - 18 mmol/L 12 eGFR >=60 mL/min/1.73m 94 Cholesterol, Total <200 mg/dL 252 (H) Triglyceride <150 mg/dL 88 HDL Cholesterol >39 mg/dL 41 Non HDL Cholesterol <130 mg/dL 211 (H) Fasting Time hrs 12 VLDL Cholesterol <30 mg/dL 18 TC:HDL Ratio <5.10 6.15 (H) LDL Cholesterol <100 mg/dL 193 (H) LDL:HDL Ratio <2.54 4.71 (H) Stool DNA Negative Negative Legend: (H) High ASSESSMENT/PLAN: 1. Persistent cough for 3 weeks or longer - ICD9: 786.2, ICD10: R05.3 (primary diagnosis) Normal lung exam today. Suspect 2/2 COPD and smoking. Recommended smoking cessation. Will check PFTs. Offered rx for inhaler which she is refusing. Will call with results. - SPIROMETRY - BASELINE AND POST DILATOR 2. Essential hypertension - ICD9: 401.9, ICD10: I10 - Uncontrolled - Continue current medications - Recommend home blood pressure monitoring, to bring results to next visit - Encouraged sodium restriction, DASH or Mediterranean diet - Recommend regular aerobic exercise - Follow up in 2 weeks for hypertension visit - COMPLETE BLOOD COUNT AND DIFFERENTIAL - COMPREHENSIVE METABOLIC PANEL - THYROID STIMULATING HORMONE - HEMOGLOBIN A1C - LISINOPRIL 10 MG TABLET - HYDROCHLOROTHIAZIDE 25 MG TABLET 3. Hyperlipidemia, mixed - ICD9: 272.2, ICD10: E78.2 - Control undetermined, due for labs - Counseled on healthy diet and regular exercise - COMPREHENSIVE METABOLIC PANEL - LIPID PANEL, NONFASTING - THYROID STIMULATING HORMONE - HEMOGLOBIN A1C 4. Gastroesophageal reflux disease, unspecified whether esophagitis present - ICD9: 530.81, ICD10: K21.9 - Discussed lifestyle modifications including losing weight, limiting caffeine, and no meals three hours before sleep 5. Obesity (BMI 30.0-34.9) - ICD9: 278.00, ICD10: E66.811 Discussed healthy diet and exercise to promote weight loss. Obtain labs to revaluate for thyroid disorder and DM. - THYROID STIMULATING HORMONE - HEMOGLOBIN A1C 6. Tobacco use - ICD9: 305.1, ICD10: Z72.0 - Cessation encouraged. - Physiologic and physical aspects of tobacco addiction as well as strategies for quitting were discussed. - Counseling was given focusing on the harmful effects of this addiction especially given the patient's medical condition(s) which will be worsened because of the chemicals in tobacco. - Prescription for Nicoderm given. Refer for lung cancer screening. - SPIROMETRY - BASELINE AND POST DILATOR - NICOTINE 21 MG/24 HR DAILY TRANSDERMAL PATCH - NICOTINE 14 MG/24 HR DAILY TRANSDERMAL PATCH - NICOTINE 7 MG/24 HR DAILY TRANSDERMAL PATCH - CONSULT LUNG CANCER SCREENING CLINIC 7. Asymptomatic postmenopausal status - ICD9: V49.81, ICD10: Z78.0 Due for DXA. - DXA-AXIAL SKELETON - DXA TRABECULAR BONE SCORE (TBS) Carrington Mann MD documented in this encounter [facility] 12-20-2023 Note Patient Outreach (IN TMMN) MISSY RICKS ([id number]) 1955 F Date Time Provider Department 12/20/23 CARRINGTON MANN During your visit today, we recorded the following information about you: Allergies As of Date: 12/20/2023 Noted Allergy Reaction CASHEW NUT 08/21/2006 2 - Rash BACTRIM (SULFAMETHOXAZOLE-TRIMETH*01/19/20 16 17 - Myalgia Comments: Myalgias, photosensitivity and fever. PENICILLINS 03/16/2005 PREDNISONE 01/19/2016 5 - Intolerance Comments: Agitation, nervousness. Date Reviewed: 11/06/2023 Reviewed by: Ayesha Carson LPN - Fully Assessed Visit Diagnosis:Encounter for screening mammogram for breast cancer [Z12.31] Order(s):MICKEY SCREENING Alexus FOWLER [[id number]] Order #: [id number] FUTURE Prescriptions as of 12/25/2023 - atorvastatin (LIPITOR) 20 mg tablet Take 1 tablet by mouth daily at bedtime. For cholesterol. - hydroCHLOROthiazide 25 mg tablet Take 1 tablet by mouth once daily. - lisinopril (ZESTRIL) 10 mg tablet Take 1 tablet by mouth once daily. Meds Comments as of 05/19/2009: No current medications/reviewed May 19, 2009. Мария Yousif Lpn Problem List As Of Date 12/20/2023 Noted Resolved ESOPHAGEAL REFLUX [K21.9] 09/13/2006 THROMBOCYTOPENIA NOS [D69.6] 09/13/2006 Menopause [Z78.0] 08/10/2009 Family History of Colonic Polyps [Z83.719] 08/10/2009 Trigger middle finger of right hand [M65.331] 01/19/2016 Carpal tunnel syndrome, right [G56.01] 01/19/2016 Tobacco use [Z72.0] Obesity (BMI 30.0-34.9) [E66.811] Benign paroxysmal positional vertigo due to danielito*01/30/2020 Encounter Status:Closed by MERT GUZMAN on 12/25/23 [facility] 12-14-2023 Note HNO ID: [id number] Author: RADHA GALLO MA Service: ? Author Type: Carpenter/Labor Type: Progress Notes Filed: 12/14/2023 09:49 Note Text: POPULATION HEALTH NAVIGATION OUTREACH Action/FYI Called and left a message to call [phone], to discuss health maintenance items that are due. PCP appt: CPE on 01/10- updated note with AW due, HCC gaps and HM due HM due: BREAST CANCER SCREENING ordered Flu My chart Reason for Outreach Care Gap/HCC or Scheduling Wellness Visits Care Gaps due: Medicare Annual Wellness Visit Breast Cancer Screening Flu Vaccine Patient Contacted: Unable or unnecessary to reach patient: Left message HCC related Updated appointment notes Navigation Signature: Radha Gallo MA December 14, 2023 9:47 AM [facility] 12-14-2023 History of Present illness Narrative POPULATION HEALTH NAVIGATION OUTREACH Action/FYI Called and left a message to call [phone], to discuss health maintenance items that are due. PCP appt: CPE on 01/10- updated note with AW due, HCC gaps and HM due HM due: BREAST CANCER SCREENING ordered Flu My chart Reason for Outreach Care Gap/HCC or Scheduling Wellness Visits Care Gaps due: Medicare Annual Wellness Visit Breast Cancer Screening Flu Vaccine Patient Contacted: Unable or unnecessary to reach patient: Left message HCC related Updated appointment notes Navigation Signature: Radha Gallo MA December 14, 2023 9:47 AM documented in this encounter [facility] 12-14-2023 Note Patient Outreach (NE TNDELANO) MISSY RICKS ([id number]) 1955 F Date Time Provider Department 12/14/23 RADHA GALLO During your visit today, we recorded the following information about you: Radha Gallo MA 12/14/2023 9:49 AM Signed POPULATION HEALTH NAVIGATION OUTREACH Action/FYI Called and left a message to call [phone], to discuss health maintenance items that are due. PCP appt: CPE on 01/10- updated note with AW due, HCC gaps and HM due HM due: BREAST CANCER SCREENING ordered Flu My chart Reason for Outreach Care Gap/HCC or Scheduling Wellness Visits Care Gaps due: Medicare Annual Wellness Visit Breast Cancer Screening Flu Vaccine Patient Contacted: Unable or unnecessary to reach patient: Left message HCC related Updated appointment notes Navigation Signature: Radha Gallo MA December 14, 2023 9:47 AM Allergies As of Date: 12/14/2023 Noted Allergy Reaction CASHEW NUT 08/21/2006 2 - Rash BACTRIM (SULFAMETHOXAZOLE-TRIMETH*01/19/20 16 17 - Myalgia Comments: Myalgias, photosensitivity and fever. PENICILLINS 03/16/2005 PREDNISONE 01/19/2016 5 - Intolerance Comments: Agitation, nervousness. Date Reviewed: 11/06/2023 Reviewed by: Ayesha Carson LPN - Fully Assessed Reason for Visit: Population Health Navigation Outreach [3910] Cmt: U[employer], AWV, Care gaps, HCC, [place] PCSA Prescriptions as of 12/14/2023 - atorvastatin (LIPITOR) 20 mg tablet Take 1 tablet by mouth daily at bedtime. For cholesterol. - hydroCHLOROthiazide 25 mg tablet Take 1 tablet by mouth once daily. - lisinopril (ZESTRIL) 10 mg tablet Take 1 tablet by mouth once daily. Meds Comments as of 05/19/2009: No current medications/reviewed May 19, 2009. Мария Yousif Lpn Problem List As Of Date 12/14/2023 Noted Resolved ESOPHAGEAL REFLUX [K21.9] 09/13/2006 THROMBOCYTOPENIA NOS [D69.6] 09/13/2006 Menopause [Z78.0] 08/10/2009 Family History of Colonic Polyps [Z83.719] 08/10/2009 Trigger middle finger of right hand [M65.331] 01/19/2016 Carpal tunnel syndrome, right [G56.01] 01/19/2016 Tobacco use [Z72.0] Obesity (BMI 30.0-34.9) [E66.9] Benign paroxysmal positional vertigo due to danielito*01/30/2020 Encounter Status:Closed by RADHA GALLO on 12/14/23 [facility] 11-06-2023 Note HNO ID: [id number] Author: CARRINGTON MANN MD Service: ? Author Type: Physician Type: Progress Notes Filed: 11/06/2023 09:31 Note Text: Chief Complaint Patient presents with: Rash: Over 10 days-arms, neck, face, chest and starting on legs now HPI Missy Ricks is a 68 year old female who presents here today for Above Complaints. Patient complaining of itching rash on her hands, chest, face, arms which started 10 days ago after mowing her lawn and then pulling out weeds she thinks was poison rosa. Treating with OTC hydrocortisone cream which helps with itching, but not the rash. Denies fever/chills, purulent drainage, pain. Gradually worsening. has similar rash. Has cat at home and was checked for fleas and was negative. No change in medications, detergents, creams, makeup, recent travel, new food. Past medical history, appointments, medications, allergies reviewed. Previous Medical History PAST MEDICAL HISTORY No date: BPPV (benign paroxysmal positional vertigo) No date: Dysplasia of cervix, unspecified Comment: teenager No date: GERD (gastroesophageal reflux disease) No date: Hypertension No date: Obesity (BMI 30.0-34.9) 1999: [facility] - PAST MEDICAL HISTORY OF Comment: UTERINE FIBROIDS No date: Tobacco use Previous Surgical History PAST SURGICAL HISTORY 1984: PAST SURGICAL HISTORY OF Comment: CRYOTHERAPY FOR DYSPLASIA 05/08/98,06/02/93: ULTRASOUND PELVIS Family History FAMILY HISTORY Problem Relation Age of Onset Diabetes Mother dialysis, Hypertension Mother Hypertension Father Parkinson?s Disease Father other (alzheimers) Father Skin Cancer Sister Hypertension Brother other (colon polyps) Brother Hypertension Brother Diabetes Maternal Grandmother Breast Cancer Sister 50 Patient Allergies ALLERGIES Allergen Reactions Cashew Nut Rash Bactrim [Sulfametho* Myalgia Myalgias, photosensitivity and fever. Penicillins Prednisone Intolerance Agitation, nervousness. Current Medications Current Outpatient Medications on File Prior to Visit Medication Sig atorvastatin (LIPITOR) 20 mg tablet Take 1 tablet by mouth daily at bedtime. For cholesterol. hydroCHLOROthiazide 25 mg tablet Take 1 tablet by mouth once daily. lisinopril (ZESTRIL) 10 mg tablet Take 1 tablet by mouth once daily. No current facility-administered medications on file prior to visit. Social History Social History Tobacco Use Smoking status: Every Day Current packs/day: 0.00 Average packs/day: 1 pack/day for 35.0 years (35.0 ttl pk-yrs) Types: Cigarettes Start date: 12/27/1980 Last attempt to quit: 12/28/2015 Years since quittin.8 Smokeless tobacco: Never Tobacco comments: used to smoke 1 pack per day Vaping Use Vaping status: Never Used Substance Use Topics Alcohol use: No Drug use: No Review of Symptoms REVIEW OF SYSTEMS See HPI EXAM: BP 126/86 Pulse 97 Resp 16 Wt 89 kg (196 lb 3.4 oz) LMP 12/11/2006 SpO2 95% BMI 29.83 kg/m? General Appearance: Well appearing, alert, in no acute distress, well-hydrated, well nourished.. Skin: mild to moderate poison rosa rash on her hands, forearms, small patch on left cheek, small patch on her neck and chest. No cellulitis or abscess. Health Maintenance List Pneumococcal Vaccine: 65+(1 of 2 - PCV) Never done Depression Screening Never done Anxiety Screening Never done Lung Cancer Screening Never done Shingrix Vaccine(1 of 2) Never done RSV Vaccine(1 - 1-dose 60+ series) Never done Mammogram Screening due on 01/01/2022 Bone Density Screening Never done Covid-19 Vaccine( season) due on 11/18/2022 Advance Directive Discussion Never done Annual PCP Team Chronic Disease Visit due on 10/18/2023 BP Controlled (<130/80) due on 10/18/2023 Influenza Vaccine(1) due on 11/19/2023 Diabetes Screening due on 09/19/2025 Colorectal Cancer Screening due on 11/11/2025 DTaP,Tdap,Td Vaccine(2 - Td or Tdap) due on 12/19/2025 Lipid Screening due on 09/20/2027 Hepatitis C Screening Completed Cervical Cancer Screening Discontinued ASSESSMENT/PLAN: 1. Poison rosa dermatitis - ICD9: 692.6, ICD10: L23.7 - Oral Steriod tx -Prednisone taper - discussed skin care of rash - follow up if symptoms persist or worsen. Carrington Mann MD [facility] 11-06-2023 History of Present illness Narrative Chief Complaint Patient presents with: Rash: Over 10 days-arms, neck, face, chest and starting on legs now HPI Missy Ricks is a 68 year old female who presents here today for Above Complaints. Patient complaining of itching rash on her hands, chest, face, arms which started 10 days ago after mowing her lawn and then pulling out weeds she thinks was poison rosa. Treating with OTC hydrocortisone cream which helps with itching, but not the rash. Denies fever/chills, purulent drainage, pain. Gradually worsening. has similar rash. Has cat at home and was checked for fleas and was negative. No change in medications, detergents, creams, makeup, recent travel, new food. Past medical history, appointments, medications, allergies reviewed. Previous Medical History PAST MEDICAL HISTORY No date: BPPV (benign paroxysmal positional vertigo) No date: Dysplasia of cervix, unspecified Comment: teenager No date: GERD (gastroesophageal reflux disease) No date: Hypertension No date: Obesity (BMI 30.0-34.9) 1998: [facility] - PAST MEDICAL HISTORY OF Comment: UTERINE FIBROIDS No date: Tobacco use Previous Surgical History PAST SURGICAL HISTORY 1984: PAST SURGICAL HISTORY OF Comment: CRYOTHERAPY FOR DYSPLASIA 05/08/98,06/02/93: ULTRASOUND PELVIS Family History FAMILY HISTORY Problem Relation Age of Onset Diabetes Mother dialysis, Hypertension Mother Hypertension Father Parkinson s Disease Father other (alzheimers) Father Skin Cancer Sister Hypertension Brother other (colon polyps) Brother Hypertension Brother Diabetes Maternal Grandmother Breast Cancer Sister 50 Patient Allergies ALLERGIES Allergen Reactions Cashew Nut Rash Bactrim [Sulfametho* Myalgia Myalgias, photosensitivity and fever. Penicillins Prednisone Intolerance Agitation, nervousness. Current Medications Current Outpatient Medications on File Prior to Visit Medication Sig atorvastatin (LIPITOR) 20 mg tablet Take 1 tablet by mouth daily at bedtime. For cholesterol. hydroCHLOROthiazide 25 mg tablet Take 1 tablet by mouth once daily. lisinopril (ZESTRIL) 10 mg tablet Take 1 tablet by mouth once daily. No current facility-administered medications on file prior to visit. Social History Social History Tobacco Use Smoking status: Every Day Current packs/day: 0.00 Average packs/day: 1 pack/day for 35.0 years (35.0 ttl pk-yrs) Types: Cigarettes Start date: 12/27/1980 Last attempt to quit: 12/28/2015 Years since quittin.8 Smokeless tobacco: Never Tobacco comments: used to smoke 1 pack per day Vaping Use Vaping status: Never Used Substance Use Topics Alcohol use: No Drug use: No Review of Symptoms REVIEW OF SYSTEMS See HPI EXAM: BP 126/86 Pulse 97 Resp 16 Wt 89 kg (196 lb 3.4 oz) LMP 12/11/2006 SpO2 95% BMI 29.83 kg/m General Appearance: Well appearing, alert, in no acute distress, well-hydrated, well nourished.. Skin: mild to moderate poison rosa rash on her hands, forearms, small patch on left cheek, small patch on her neck and chest. No cellulitis or abscess. Health Maintenance List Pneumococcal Vaccine: 65+(1 of 2 - PCV) Never done Depression Screening Never done Anxiety Screening Never done Lung Cancer Screening Never done Shingrix Vaccine(1 of 2) Never done RSV Vaccine(1 - 1-dose 60+ series) Never done Mammogram Screening due on 01/01/2022 Bone Density Screening Never done Covid-19 Vaccine( season) due on 11/18/2022 Advance Directive Discussion Never done Annual PCP Team Chronic Disease Visit due on 10/18/2023 BP Controlled (<130/80) due on 10/18/2023 Influenza Vaccine(1) due on 11/19/2023 Diabetes Screening due on 09/19/2025 Colorectal Cancer Screening due on 11/11/2025 DTaP,Tdap,Td Vaccine(2 - Td or Tdap) due on 12/19/2025 Lipid Screening due on 09/20/2027 Hepatitis C Screening Completed Cervical Cancer Screening Discontinued ASSESSMENT/PLAN: 1. Poison rosa dermatitis - ICD9: 692.6, ICD10: L23.7 - Oral Steriod tx -Prednisone taper - discussed skin care of rash - follow up if symptoms persist or worsen. Carrington Mann MD documented in this encounter [facility] 11-06-2023 Telephone encounter Note Reason for Call: Widespread itching rash Outcome: Patient was conferenced to [facility] in Appointment Center for PCP within 24 hour scheduling. Advised Urgent/Express Care if no appointments available. Reason for Disposition SEVERE itching (i.e., interferes with sleep, normal activities or school) Answer Assessment - Initial Assessment Questions 1. APPEARANCE of RASH: Pinkish red, bumpy, some blisters 2. SIZE: Did not ask 3. LOCATION: Face, chest, neck, arms, even palms of both hands, still spreading 4. COLOR: Pinkish red 5. ONSET 10 days ago, had been working out in yard 6. FEVER: Denies any fever 7. ITCHING: Could not sleep due to itching Hydrocortisone cream 8. CAUSE: Poison Rosa 9. MEDICINE FACTORS: Denies any new medications 10. OTHER SYMPTOMS: Denies any other symptoms 11. : N/A Patient is drinking less than usual amount of fluids and urinating usual amount and frequency, last urination 11/06/23 at 7:00 AM No medication changes within the past 30 days. Protocols used: Rash or Redness - [id number] [facility] 11-06-2023 Miscellaneous Notes Reason for Call: Widespread itching rash Outcome: Patient was conferenced to [facility] in Appointment Center for PCP within 24 hour scheduling. Advised Urgent/Express Care if no appointments available. Reason for Disposition SEVERE itching (i.e., interferes with sleep, normal activities or school) Answer Assessment - Initial Assessment Questions 1. APPEARANCE of RASH: Pinkish red, bumpy, some blisters 2. SIZE: Did not ask 3. LOCATION: Face, chest, neck, arms, even palms of both hands, still spreading 4. COLOR: Pinkish red 5. ONSET 10 days ago, had been working out in yard 6. FEVER: Denies any fever 7. ITCHING: Could not sleep due to itching Hydrocortisone cream 8. CAUSE: Poison Rosa 9. MEDICINE FACTORS: Denies any new medications 10. OTHER SYMPTOMS: Denies any other symptoms 11. : N/A Patient is drinking less than usual amount of fluids and urinating usual amount and frequency, last urination 11/06/23 at 7:00 AM No medication changes within the past 30 days. Protocols used: Rash or Redness - [id number] documented in this encounter [facility] 08-31-2023 Note HNO ID: [id number] Author: VILMA MARTINES MA Service: ? Author Type: Carpenter/Labor Type: Progress Notes Filed: 08/31/2023 16:31 Note Text: POPULATION HEALTH NAVIGATION OUTREACH Action/FYI Spoke to Missy scheduled MAMMOGRAMS Reason for Outreach Care Gap/HCC or Scheduling Wellness Visits Care Gaps due: Breast Cancer Screening Patient Contacted: Spoke to patient/parent/or legal guardian Patient identified by name and : Yes Care Gap/HCC/Scheduling Wellness actions taken: Patient scheduled/pended labs: Breast Cancer Screening Navigation Signature: Vilma Martines MA August 31, 2023 10:15 AM [facility] 08-31-2023 History of Present illness Narrative POPULATION HEALTH NAVIGATION OUTREACH Action/FYI Spoke to Missy scheduled MAMMOGRAMS Reason for Outreach Care Gap/HCC or Scheduling Wellness Visits Care Gaps due: Breast Cancer Screening Patient Contacted: Spoke to patient/parent/or legal guardian Patient identified by name and : Yes Care Gap/HCC/Scheduling Wellness actions taken: Patient scheduled/pended labs: Breast Cancer Screening Navigation Signature: Vilma Martines MA August 31, 2023 10:15 AM documented in this encounter [facility] 08-31-2023 Note Patient Outreach (NE TNAV) MISSY RICKS ([id number]) 1955 F Date Time Provider Department 08/31/23 VLIMA MARTINES NETNAV During your visit today, we recorded the following information about you: Vilma Martines MA 08/31/2023 4:31 PM Signed POPULATION HEALTH NAVIGATION OUTREACH Action/FYI Spoke to Missy scheduled MAMMOGRAMS Reason for Outreach Care Gap/HCC or Scheduling Wellness Visits Care Gaps due: Breast Cancer Screening Patient Contacted: Spoke to patient/parent/or legal guardian Patient identified by name and : Yes Care Gap/HCC/Scheduling Wellness actions taken: Patient scheduled/pended labs: Breast Cancer Screening Navigation Signature: Vilma Martines MA August 31, 2023 10:15 AM Allergies As of Date: 08/31/2023 Noted Allergy Reaction CASHEW NUT 08/21/2006 2 - Rash BACTRIM (SULFAMETHOXAZOLE-TRIMETH*01/19/20 16 17 - Myalgia Comments: Myalgias, photosensitivity and fever. PENICILLINS 03/16/2005 PREDNISONE 01/19/2016 5 - Intolerance Comments: Agitation, nervousness. Date Reviewed: 10/17/2022 Reviewed by: Blanche Romero MA - Fully Assessed Reason for Visit: Population Health Navigation Outreach [3910] Cmt: BOUCHRA JIMENEZ PCSA Prescriptions as of 08/31/2023 - atorvastatin (LIPITOR) 20 mg tablet Take 1 tablet by mouth daily at bedtime. For cholesterol. - hydroCHLOROthiazide 25 mg tablet Take 1 tablet by mouth once daily. - lisinopril (ZESTRIL) 10 mg tablet Take 1 tablet by mouth once daily. Meds Comments as of 05/19/2009: No current medications/reviewed May 19, 2009. Мария Yousif Vp Integrity Problem List As Of Date 08/31/2023 Noted Resolved ESOPHAGEAL REFLUX [K21.9] 09/13/2006 THROMBOCYTOPENIA NOS [D69.6] 09/13/2006 Menopause [Z78.0] 08/10/2009 Family History of Colonic Polyps [Z83.719] 08/10/2009 Trigger middle finger of right hand [M65.331] 01/19/2016 Carpal tunnel syndrome, right [G56.01] 01/19/2016 Tobacco use [Z72.0] Obesity (BMI 30.0-34.9) [E66.9] Benign paroxysmal positional vertigo due to danielito*01/30/2020 Encounter Status:Closed by VILMA MARTINES on 08/31/23 [facility] 12-28-2022 Miscellaneous Notes Patient reports she had quit taking atorvastatin on her own then started taking it again in Nov per provider advice. Patient has been identified by name and date of : Yes, Provider Mackenzie Date 12-28-22 Time 9:23 am Patient phones for refill(s): Requested Prescriptions Pending Prescriptions Disp Refills atorvastatin (LIPITOR) 20 mg tablet 90 tablet 0 Sig: Take 1 tablet by mouth daily at bedtime. For cholesterol. hydroCHLOROthiazide 25 mg tablet 90 tablet 0 Sig: Take 1 tablet by mouth once daily. lisinopril (ZESTRIL) 10 mg tablet 90 tablet 0 Sig: Take 1 tablet by mouth once daily. Date of last office visit in primary care:10-17-22. Date of next office visit in primary care: 04/17/2023 Last 2 Encounter Wt Readings: Date: Wt: 10/17/2022 88 kg (194 lb) 09/19/2022 88.2 kg (194 lb 6.4 oz) Previous labs/tests for medication: Cholesterol: HDL Cholesterol (mg/dL) Date Value 09/19/2022 41 08/02/2016 47 HDL Cholesterol, Nonfasting (mg/dL) Date Value 04/24/2019 37 LDL Cholesterol (mg/dL) Date Value 09/19/2022 193 08/02/2016 130 LDL Cholesterol, Nonfasting (mg/dL) Date Value 10/14/2021 174 04/24/2019 147 ALT (U/L) Date Value 09/19/2022 14 03/04/2020 36 Non HDL Cholesterol, Nonfasting (mg/dL) Date Value 04/24/2019 168 Non HDL Cholesterol (mg/dL) Date Value 09/19/2022 211 Blood Pressure: BUN (mg/dL) Date Value 09/19/2022 15 03/04/2020 17 Sodium (mmol/L) Date Value 09/19/2022 138 03/04/2020 138 Last 1 Encounter BP Readings: Date: BP: 10/17/2022 122/80 Liver Function: ALT (U/L) Date Value 09/19/2022 14 03/04/2020 36 AST (U/L) Date Value 09/19/2022 18 03/04/2020 25 Please advise. Thank you. Tello Theodore RN. documented in this encounter [facility] 11-22-2022 Miscellaneous Notes Letter mailed to pt home of results. Blaire Elmore MA ----- Message from Мария Aceves APRN.POULTRY DRESSING WORKER sent at 11/22/2022 7:28 AM EDT ----- Cologuard negative- repeat in 3 years. Мария DodgelogZHANG unger.POULTRY DRESSING WORKER documented in this encounter [facility] 10-17-2022 History of Present illness Narrative 10/17/2022 Patient presents with: Physical SUBJECTIVE: This is a 67 year old that is here today for Above Complaints. HTN: Patient is compliant with meds Yes Monitors bp at home: No. Denies side effects: Yes. Chest pain: No. Dyspnea: No. Edema: No. Palpitations: No. Syncope: No. Headache: No. Dizziness: No. HYPERLIPIDEMIA: Patient is taking medications: Yes. Patient is watching diet: Yes. Patient denies myalgias: Yes. Patient denies gi upset: Yes PAST MEDICAL HISTORY Diagnosis Date BPPV (benign paroxysmal positional vertigo) Dysplasia of cervix, unspecified teenager GERD (gastroesophageal reflux disease) Hypertension Obesity (BMI 30.0-34.9) PMH - PAST MEDICAL HISTORY OF 1998 UTERINE FIBROIDS Tobacco use ALLERGIES Cashew Nut, Bactrim [Sulfamethoxazole-Trimethoprim], Penicillins, and Prednisone MEDICATIONS Current Outpatient Medications Medication Sig hydroCHLOROthiazide 25 mg tablet Take 1 tablet by mouth once daily. lisinopril (ZESTRIL) 10 mg tablet Take 1 tablet by mouth once daily. atorvastatin (LIPITOR) 20 mg tablet Take 1 tablet by mouth daily at bedtime. For cholesterol. No current facility-administered medications for this visit. Medications and allergies reviewed by this provider. SOCIAL HISTORY Social History Tobacco Use Smoking status: Every Day Packs/day: 1.00 Years: 35.00 Total pack years: 35.00 Types: Cigarettes Last attempt to quit: 12/28/2015 Years since quittin.8 Smokeless tobacco: Never Tobacco comments: used to smoke 1 pack per day Vaping Use Vaping Use: Never used Substance Use Topics Alcohol use: No Drug use: No REVIEW OF SYSTEMS GENERAL: No weight loss, malaise or fevers HEENT: Negative for frequent or significant headaches, No changes in hearing or vision, no nose bleeds or other nasal problems NECK: Negative for lumps, goiter, pain and significant neck swelling RESPIRATORY: Negative for cough, hemoptysis, wheezing, COPD, dyspnea or shortness of breath CARDIOVASCULAR: Negative for chest pain, leg swelling, hypertension, CHF or palpitations GI: No nausea, vomiting, or diarrhea : No history of dysuria, frequency or incontinence RESOURCE DEVELOPMENT DIRECTOR: Negative for abnormal vaginal bleeding, abnormal vaginal discharge MUSCULOSKELETAL: Negative for joint pain or swelling, back pain or muscle pain SKIN: Negative for lesions, rash, and itching PSYCH: Negative for sleep disturbance, mood disorder and recent psychosocial stressors HEMATOLOGY/LYMPHOLOGY: Negative for prolonged bleeding, bruising easily or swollen nodes ENDOCRINE: Negative for cold or heat intolerance, polyuria, polydipsia and goiter NEURO: No history of headaches, syncope, paralysis, seizures or tremors All other reviewed and negative other than HPI. OBJECTIVE: BP 122/80 Pulse 76 Resp 16 Ht 172.7 cm (5' 8) Wt 88 kg (194 lb) LMP 12/11/2006 BMI 29.50 kg/m . Vital signs reviewed by this provider. APPEARANCE Well appearing, alert, in no acute distress, well-hydrated, well nourished. EYES conjunctiva and sclera normal. EARS External ears normal, canals clear NECK Supple, no adenopathy; thyroid symmetric, normal size, no bruits HEART RRR with normal S1 and S2, no murmurs, no gallops, no JVD appreciated LUNG clear to auscultation. No wheezes, rhonchi or rales EXTREMITIES Extremities normal, No deformities, No skin discoloration, No edema, and Normal pulses bilaterally. SKIN Skin color, texture, turgor normal, no suspicious rashes or lesions to exposed skin Component Latest Ref Rng & Units 09/19/2022 WBC 3.70 - 11.00 k/uL 4.30 RBC 3.90 - 5.20 m/uL 4.47 Hemoglobin 11.5 - 15.5 g/dL 13.4 Hematocrit 36.0 - 46.0 % 41.3 MCV 80.0 - 100.0 fL 92.4 MCH 26.0 - 34.0 pg 30.0 MCHC 30.5 - 36.0 g/dL 32.4 RDW-CV 11.5 - 15.0 % 13.2 Platelet Count 150 - 400 k/uL 199 MPV 9.0 - 12.7 fL 11.1 Neut% % 53.9 Abs Neut (ANC) 1.45 - 7.50 k/uL 2.32 Lymph% % 33.3 Abs Lymph 1.00 - 4.00 k/uL 1.43 Weston% % 9.1 Abs Weston <0.87 k/uL 0.39 Eosin% % 2.6 Abs Eosin <0.46 k/uL 0.11 Baso% % 0.9 Abs Baso <0.11 k/uL 0.04 Immature Gran % % 0.2 IMMATURE GRANS (ABS) <0.10 k/uL <0.03 NRBC /100 WBC 0.0 Absolute nRBC <0.01 k/uL <0.01 DTYPE Auto Protein, Total 6.3 - 8.0 g/dL 7.4 Albumin 3.9 - 4.9 g/dL 4.8 Calcium 8.5 - 10.2 mg/dL 10.5 (H) Bilirubin, Total 0.2 - 1.3 mg/dL 0.3 Alkaline Phosphatase 34 - 123 U/L 80 AST 13 - 35 U/L 18 ALT 7 - 38 U/L 14 Glucose 74 - 99 mg/dL 100 (H) BUN 7 - 21 mg/dL 15 Creatinine 0.58 - 0.96 mg/dL 0.71 Sodium 136 - 144 mmol/L 138 Potassium 3.7 - 5.1 mmol/L 4.9 Chloride 97 - 105 mmol/L 101 CO2 22 - 30 mmol/L 25 Anion Gap 9 - 18 mmol/L 12 eGFR >=60 mL/min/1.73m 94 Cholesterol, Total <200 mg/dL 252 (H) Triglyceride <150 mg/dL 88 HDL Cholesterol >39 mg/dL 41 Non HDL Cholesterol <130 mg/dL 211 (H) Fasting Time hrs 12 VLDL Cholesterol <30 mg/dL 18 TC:HDL Ratio <5.10 6.15 (H) LDL Cholesterol <100 mg/dL 193 (H) LDL:HDL Ratio <2.54 4.71 (H) COLORECTAL CANCER SCREENING Never done MAMMOGRAM due on 01/01/2022 ADVANCE DIRECTIVE DISCUSSION Never done BONE DENSITY due on 10/18/2023 LUNG CANCER SCREENING due on 10/18/2023 HIV SCREENING due on 10/18/2023 SHINGRIX VACCINE(1 of 2) due on 10/18/2023 COVID-19 VACCINE(3 - Pfizer series) due on 10/18/2023 PNEUMOCOCCAL: 65+(1 - PCV) due on 10/18/2023 INFLUENZA(1) due on 11/18/2022 ANNUAL PCP TEAM CHRONIC DISEASE VISIT due on 09/20/2023 BP CONTROLLED (<130/80) due on 10/18/2023 DIABETES SCREEN due on 09/19/2025 DTAP,TDAP,TD(2 - Td or Tdap) due on 12/19/2025 LIPID SCREEN due on 09/20/2027 DEPRESSION ASSESSMENT Completed HEPATITIS C SCREENING Completed PAP TESTING Discontinued ASSESSMENT/PLAN: 1. Routine physical examination - ICD9: V70.0, ICD10: Z00.00 (primary diagnosis) - Counseled on healthy diet and regular exercise - Calcium intake with supplements or by diet of 1000 mg/day for under 50, 3246-1343 mg/day for 50+ - Colorectal cancer screening recommended - agrees to Cologuard - Smoking cessation encouraged; discussed risks to health and quitting strategies. Patient is contemplative - Depression screening tool completed and reviewed with patient. Based on score and interview, patient is not at risk for depression and recommended no further intervention at this time. - Follow up for annual exam in one year 2. Screening for colon cancer - ICD9: V76.51, ICD10: Z12.11 - COLOGUARD 3. Essential hypertension - ICD9: 401.9, ICD10: I10 - Controlled - Continue current medications - Recommend home blood pressure monitoring, to bring results to next visit - Encouraged sodium restriction, DASH or Mediterranean diet - Recommend regular aerobic exercise - Discussed need for and benefit of weight loss. BMI 29.50 kg/(m^2) - Smoking cessation encouraged; discussed risks to health and quitting strategies. Patient is contemplative - Follow up in 6 months for hypertension visit - COMP METABOLIC PANEL 4. Hyperlipidemia, mixed - ICD9: 272.2, ICD10: E78.2 - Uncontrolled - Continue current medications - Counseled on healthy diet and regular exercise - Discussed need for and benefit of weight loss. BMI 29.50 kg/(m^2) - Follow up in 6 months, sooner should any other issues arise. - LIPID PANEL BASIC Мария Aceves, ZHANG.POULTRY DRESSING WORKER Prescription instructions reviewed with patient as applicable. Patient advised if symptoms do not improve or if symptoms worsen sooner, to contact their primary care physician. Potential red flag symptoms discussed with the patient. Reviewed appropriate action plan to take if red flag symptoms occur. Patient agreeable to treatment plan. documented in this encounter [facility] 09-21-2022 Miscellaneous Notes Patient notified of results and recommendations. Does not need a new prescription at this time. Will let office know when she does. Ramya Johnson LPN Please call patient and let her know her cholesterol is elevated. Recommend she restart her atorvastatin. If she needs new prescription I can send. The rest of her blood work is within acceptable ranges. Мария Aceves APRN.DESIREE documented in this encounter [facility] 10-22-2021 Miscellaneous Notes Phoned patient and left VM with additional information had requested we call patient back with as requested on 10/19/21. Advised patient to call with any questions or concerns. answered phone when called. Stated he plans to potato picker medication for spouse tomorrow am. Requesting office call back Monday and give patient the rest of the information. Ramya Johnson LPN 90 day rx sent to pharmacy. Recheck labs in 3 months. Call with any concern for side effects. Patient returned call and given provider's message below. Patient agreeable to starting lipitor 20mg. Requesting to use [facility] in [place]. Thank you. Phoned number on file for patient and got patient's husbands VM. Left message for patient to return call and request to speak to a nurse for lab results and medication orders. Left message with asking patient to return call to nurse for provider message. Normal labs aside from high cholesterol. She has moderate risk for heart attack or stroke in the next 10 years. To lower this risk, I would recommend starting her on a moderate intenisty statin such as lipitor 20 mg daily. Most common side effect is muscle aches. If agreeable, will send rx to requested pharmacy. documented in this encounter [facility] 10-14-2021 Instructions Carrington Mann MD - 10/14/2021 10:56 AM EDT Low sodium diet less than 2,000 mg of sodium per day. [id number]-QUIT NOW documented in this encounter [facility] 10-14-2021 History of Present illness Narrative Chief Complaint Patient presents with: Follow Up HPI Missy Ricks is a 66 year old female who presents here today for medication refill. Last OV 01/2020. HTN: Ms. Ricks indicates that she is feeling well and denies any symptoms referable to elevated blood pressure. Specifically denies headache, chest pain, palpitations, dyspnea and peripheral edema. Patient denies any side effects of her medication(s) and is compliant with their regimen. She does not check BP's generally. Missy works out regularly 2 times per week with walking. She watches her diet for sodium, low fat and low cholesterol generally not very much. Last 3 Encounter BP Readings: Date: BP: 10/14/2021 116/70 01/01/2021 122/70 02/12/2020 146/94 GERD has been well controlled without medication for several months now. Still smoking about 1 pack per day. Quit in March and picked it back up after about 2 months. Does not want to take medication to help with cessation. Refusing low dose CT chest on a yearly basis. Past medical history, appointments, medications, allergies reviewed. Previous Medical History PAST MEDICAL HISTORY Diagnosis Date BPPV (benign paroxysmal positional vertigo) Dysplasia of cervix, unspecified teenager GERD (gastroesophageal reflux disease) Hypertension Obesity (BMI 30.0-34.9) PMH - PAST MEDICAL HISTORY OF 1998 UTERINE FIBROIDS Tobacco use Previous Surgical History PAST SURGICAL HISTORY Procedure Laterality Date PAST SURGICAL HISTORY OF 1983 CRYOTHERAPY FOR DYSPLASIA ULTRASOUND PELVIS 05/08/98,06/02/93 Family History FAMILY HISTORY Problem Relation Age of Onset Diabetes Mother dialysis, Hypertension Mother Hypertension Father Parkinson s Disease Father other (alzheimers) Father Skin Cancer Sister Hypertension Brother other (colon polyps) Brother Hypertension Brother Diabetes Maternal Grandmother Breast Cancer Sister 50 Patient Allergies ALLERGIES Allergen Reactions Cashew Nut Rash Bactrim [Sulfametho* Myalgia Myalgias, photosensitivity and fever. Penicillins Prednisone Intolerance Agitation, nervousness. Current Medications Current Outpatient Medications on File Prior to Visit Medication Sig hydroCHLOROthiazide (HYDRODIURIL, ESIDRIX) 25 mg tablet Take 1 tablet by mouth once daily. lisinopril (ZESTRIL, PRINIVIL) 10 mg tablet Take 1 tablet by mouth once daily. OMEPRAZOLE (PRILOSEC ORAL) Take by mouth. No current facility-administered medications on file prior to visit. Social History Social History Tobacco Use Smoking status: Current Every Day Smoker Packs/day: 1.00 Years: 30.00 Pack years: 30.00 Types: Cigarettes Last attempt to quit: 12/28/2015 Years since quittin.8 Smokeless tobacco: Never Used Tobacco comment: used to smoke 1 pack per day Vaping Use Vaping Use: Never used Substance Use Topics Alcohol use: No Drug use: No Review of Symptoms REVIEW OF SYSTEMS GENERAL: No weight loss, malaise or fevers RESPIRATORY: Negative for cough, hemoptysis, wheezing, COPD, dyspnea or shortness of breath CARDIOVASCULAR: Negative for chest pain, leg swelling, hypertension, CHF or palpitations GI: No nausea, vomiting, or diarrhea SKIN: Negative for lesions, rash, and itching EXAM: BP 116/70 Pulse 79 Resp 16 Wt 86.8 kg (191 lb 6.4 oz) LMP 12/11/2006 SpO2 99% BMI 29.98 kg/m General Appearance: Well appearing, alert, in no acute distress, well-hydrated, well nourished.. Skin: Skin color, texture, turgor normal, no suspicious rashes or lesions. Lungs: Lungs clear to auscultation. No wheezing, rhonchi, rales.. Heart: RRR without murmur, gallop, or rubs. No ectopy. Abdomen: Normal abdominal exam, Abdomen soft, non-tender. Bowel sounds normal. No masses, organomegaly. Extremities: No deformities, edema, skin discoloration, clubbing or cyanosis. Good capillary refill. . Health Maintenance List PNEUMOCOCCAL(1 - PCV) Never done HIV SCREENING Never done COLORECTAL CANCER SCREENING Never done LUNG CANCER SCREENING Never done SHINGRIX VACCINE(1 of 2) Never done DEPRESSION SCREENING due on 11/25/2016 COVID-19 VACCINE(3 - Booster for Pfizer series) due on 08/30/2020 MAMMOGRAM due on 01/01/2022 INFLUENZA(1) due on 11/18/2021 DIABETES SCREEN due on 03/04/2023 LIPID SCREEN due on 04/24/2024 DTAP,TDAP,TD(2 - Td or Tdap) due on 12/19/2025 PAP TESTING due on 01/01/2026 HPV TESTING due on 01/01/2026 HEPATITIS C SCREENING Completed Data reviewed Component Latest Ref Rng & Units 04/24/2019 03/04/2020 Protein, Total 6.3 - 8.0 g/dL 7.2 7.3 Albumin 3.9 - 4.9 g/dL 4.6 4.7 Calcium 8.5 - 10.2 mg/dL 10.3 (H) 10.0 Bilirubin, Total 0.2 - 1.3 mg/dL 0.4 0.3 Alkaline Phosphatase 34 - 123 U/L 83 84 AST 13 - 35 U/L 19 25 Glucose 74 - 99 mg/dL 92 95 BUN 7 - 21 mg/dL 13 17 Creatinine 0.58 - 0.96 mg/dL 0.67 0.76 Sodium 136 - 144 mmol/L 141 138 Potassium 3.7 - 5.1 mmol/L 4.3 4.2 Chloride 97 - 105 mmol/L 103 101 CO2 22 - 30 mmol/L 25 26 Anion Gap 9 - 18 mmol/L 13 11 ALT 7 - 38 U/L 15 36 eGFR- >60 >60 eGFR-All Other Races . >60 >60 WBC 3.70 - 11.00 k/uL 4.75 RBC 3.90 - 5.20 m/uL 4.32 Hemoglobin 11.5 - 15.5 g/dL 12.9 Hematocrit 36.0 - 46.0 % 39.6 MCV 80.0 - 100.0 fL 91.7 MCH 26.0 - 34.0 pG 29.9 MCHC 30.5 - 36.0 g/dL 32.6 RDW-CV 11.5 - 15.0 % 12.3 Platelet Count 150 - 400 k/uL 209 MPV 9.0 - 12.7 fL 11.2 Absolute nRBC <0.01 k/uL <0.01 Total Cholesterol, Nonfasting <200 mg/dL 205 (H) Triglycerides, Nonfasting <150 mg/dL 107 HDL Cholesterol, Nonfasting >39 mg/dL 37 (L) LDL Cholesterol, Nonfasting <100 mg/dL 147 (H) Non HDL Cholesterol, Nonfasting <130 mg/dL 168 (H) VLDL Cholesterol, Nonfasting <30 mg/dL 21 Total Chol/HDL Ratio, Nonfasting <5.10 mg/dL 5.54 (H) LDL/HDL Ratio, Nonfasting <2.54 mg/dL 3.97 (H) Hemoglobin A1C 4.3 - 5.6 % 5.5 Estimated Average Glucose mg/dL 111 ASSESSMENT/PLAN: 1. Essential hypertension - ICD9: 401.9, ICD10: I10 (primary diagnosis) - good control - Continue current medication(s) - Encouraged dietary sodium restriction/DASH diet - Recommended regular aerobic exercise. - Reviewed risks of HTN and principles of treatment - Goal of BP <140/90 - CBC - COMP METABOLIC PANEL - LIPID PANEL, NONFASTING - HYDROCHLOROTHIAZIDE 25 MG TABLET - LISINOPRIL 10 MG TABLET 2. Gastroesophageal reflux disease, unspecified whether esophagitis present - ICD9: 530.81, ICD10: K21.9 - Discussed lifestyle modifications including losing weight, limiting caffeine, no meals three hours before sleep and head of bed elevation 3. Overweight (BMI 25.0-29.9) - ICD9: 278.02, ICD10: E66.3 Weight decreasing - Behavioral intervention 4. Tobacco use - ICD9: 305.1, ICD10: Z72.0 - Cessation encouraged. - Physiologic and physical aspects of tobacco addiction as well as strategies for quitting were discussed. - Counseling was given focusing on the harmful effects of this addiction especially given the patient's medical condition(s) which will be worsened because of the chemicals in tobacco. - Recommended to called 1-800-QUIT NOW - CBC - COMP METABOLIC PANEL - LIPID PANEL, NONFASTING Carrington Mann MD documented in this encounter [facility] Evaluation note Diagnosis Essential hypertension- Primary Unspecified essential hypertension Gastroesophageal reflux disease, unspecified whether esophagitis present Overweight (BMI 25.0-29.9) Overweight Tobacco use Tobacco use disorder [facility] Hyperlipidemia, mixed- Primary Mixed hyperlipidemia [facility] Diagnosis Encounter for screening mammogram for breast cancer [facility] Diagnosis Routine physical examination- Primary Routine [facility] Screening for colon cancer Special screening for malignant neoplasms, colon Essential hypertension Unspecified essential hypertension Hyperlipidemia, mixed Mixed hyperlipidemia [facility] Diagnosis Hyperlipidemia, mixed Mixed hyperlipidemia Essential hypertension Unspecified essential hypertension [facility] Diagnosis Encounter for screening mammogram for breast cancer [facility] Diagnosis Poison rosa dermatitis- Primary Contact dermatitis and other eczema due to plants (except food) [facility] Encounter for screening mammogram for breast cancer [facility] Diagnosis Persistent cough for 3 weeks or longer- Primary Essential hypertension Unspecified essential hypertension Hyperlipidemia, mixed Mixed hyperlipidemia Gastroesophageal reflux disease, unspecified whether esophagitis present Obesity (BMI 30.0-34.9) Obesity, unspecified Tobacco use Tobacco use disorder Asymptomatic postmenopausal status [facility] Diagnosis Encounter for screening mammogram for breast cancer [facility] Diagnosis Essential hypertension- Primary Unspecified essential hypertension [facility] Diagnosis Shortness of breath [facility] [place] [facility] Diagnosis Tobacco use Tobacco use disorder Persistent cough for 3 weeks or longer documented in this encounter [facility] note* Diagnosis Encounter for screening for lung cancer- Primary Tobacco use Tobacco use disorder Shortness of breath documented in this encounter [facility] note* Diagnosis Asymptomatic postmenopausal status documented in this encounter [facility] note* Diagnosis Encounter for screening for lung cancer Tobacco use Tobacco use disorder documented in this encounter [facility] note* Diagnosis Encounter for screening for lung cancer- Primary Tobacco use Tobacco use disorder Abnormality of ascending aorta documented in this encounter [facility] note* Diagnosis Hyperlipidemia, mixed- Primary Mixed hyperlipidemia documented in this encounter [facility] note* Diagnosis Medicare annual wellness visit, subsequent- Primary Routine general medical examination at a [facility] facility Decreased visual acuity Unspecified visual loss Essential hypertension Unspecified essential hypertension Hyperlipidemia, mixed Mixed hyperlipidemia Screening for depression Advance directive discussed with patient Other specified counseling Tobacco use Tobacco use disorder documented in this encounter [facility] note* Diagnosis Onset Date Resolution Status Admit Date Atherosclerotic vascular disease chr onic September 16, 2024 11:00am Dyslipidemia chronic September 16 025 11:00am Dyspnea on exertion chronic September 16, 2024 11:00am Hypertension chronic September 16 025 11:00am Nicotine dependence chronic September 16, 2024 11:00am Thoracic aortic aneurysm chronic September 16, 2024 11:00am [email or web address] Work Phone: [facility] for referral (narrative)* Diagnostic Procedure Only (Routine) - Pending Review Specialty Diagnoses / Procedures Referred By Contac t Referred To Contact BR [facility] Diagnoses Encounter for screening mammogram for breast cancer Procedures MICKEY SCREENING SCREENING MAMMOGRAPHY BI 2-VIEW BREAST INC CAD Carrington Mann MD [address] [place] [address] [facility] [address] [place] [phone] Referral ID Status Reason Start Date Expiration Date Visits Requested Visits Authorized [id number] Pending Review Auto-Generat ed Referral 2 03/04/2023 1 1 [facility] for referral (narrative)* Diagnostic Procedure Only (Routine) - Pending Review Specialty Diagnoses / Procedures Referred By Contac t Referred To Contact BR [facility] Diagnoses Encounter for screening mammogram for breast cancer Procedures MICKEY SCREENING SCREENING MAMMOGRAPHY BI 2-VIEW BREAST INC Carrington Valdovinos MD [address] [place] [address] [facility] [address] [place] [address] Referral ID Status Reason Start Date Expiration Date Visits Requested Visits Authorized [id number] Pending Review Auto-Generat ed Referral 3 02/10/2024 1 1 T [facility] for referral (narrative)* Diagnostic Procedure Only (Routine) - New Request Specialty Diagnoses / Procedures Referred By Abel t Referred To Contact BR IM[facility] Diagnoses Encounter for screening mammogram for breast cancer Procedures MICKEY SCREENING W MALCOLM SCREENING DIGITAL BREAST TOMOSYNTHESIS BI SCREENING MAMMOGRAPHY BI 2-VIEW BREAST INC Carrington Valdovinos MD [address] [place] [address] [facility] [address] [place] [address] Referral ID Status Reason Start Date Expiration Date Visits Requested Visits Authorized [id number] New Request Auto-Generat ed Referral 12/20/2023 01/18/2025 1 1 T [facility] for referral (narrative)* Diagnostic Procedure Only (Routine) - Authorized Specialty Diagnoses / Procedures Referred By Jaylenac t Referred To Contact XR IMAGING Diagnoses Asymptomatic postmenopausal status Procedures DXA-AXIAL SKELETON DXA BONE DENSITY STUDY 1/> SITES AXIAL Carrington Carvalho MD [facility] [place] [address] [place] [address] Referral ID Status Reason Start Date Expiration Date Visits Requested Visits Authorized [id number] Authorized Auto-Generat ed Referral 02/09/2025 1 1 * Outpatient Procedure (Routine) - Pending Review Specialty Diagnoses / Procedures Referred By Contac t Referred To Contact [facility] Diagnoses Tobacco use Persistent cough for 3 weeks or longer Procedures SPIROMETRY - BASELINE AND POST DILATOR BRNCDILAT RSPSE SPMTRY PRE&POST-BRNCDILAT ADMCarrington Singeltary MD [address] [place] [address] Respiratory [place] [address] [place], [place] [id number] Referral ID Status Reason Start Date Expiration Date Visits Requested Visits Authorized [id number] Pending Review Auto-Generat ed Referral 02/09/2025 1 1 [facility] for referral (narrative)* Outpatient Procedure (Routine) - Closed Specialty Diagnoses / Procedures Referred By Contac t Referred To [facility] Diagnoses Shortness of breath Procedures LUNG DIFFUSION CAPACITY (DLCO) DIFFUSING CAPACITY Bell Dixon APRN.POULTRY DRESSING WORKER [address] [place] [phone] Respiratory [place] [id number] Referral ID Status Reason Start Date Expiration Date V isits Requested Visits Authorized [id number] Closed Auto-Generate d Referral 02/26/2024 03/19/2024 1 1 * MRI/CT (Routine) - Pending Review Specialty Diagnoses / Procedures Referred By Contac t Referred To Contact CT IMAGING Diagnoses Encounter for screening for lung cancer Tobacco use Procedures CT LUNG SCREEN WO IVCON COMPUTED TOMOGRAPHY THORAX LW DOSE LNG CA SCR C- Bell Dixon APRN.POULTRY DRESSING WORKER [address] [place] [address] [place] [id number] Referral ID Status Reason Start Date Expiration Date Visits Requested Visits Authorized [id number] Pending Review Auto-Generat ed Referral 02/26/2024 03/27/2025 1 1 [facility] for referral (narrative)No reason for referral information [facility] Work Phone: Reason for visit Narrative* Diagnostic Procedure Only (Routine) - Closed Specialty Diagnoses / Procedures Referred By Contac t Referred To Contact BR [facility] Diagnoses Encounter for screening mammogram for breast cancer Procedures MICKEY SCREENING W MALCOLM SCREENING DIGITAL BREAST TOMOSYNTHESIS BI SCREENING MAMMOGRAPHY BI 2-VIEW BREAST INC CAD Carrington Mann MD [address] [place] [address] [facility] [address] [place] [address] Referral ID Status Reason Start Date Expiration Date V isits Requested Visits Authorized [id number] Closed Auto-Generate d Referral 12/20/2023 01/18/2025 1 1 [facility] for visit Narrative* Diagnostic Procedure Only (Routine) - Closed Specialty Diagnoses / Procedures Referred By Contac t Referred To Contact XR IMAGING Diagnoses Asymptomatic postmenopausal status Procedures DXA-AXIAL SKELETON DXA BONE DENSITY STUDY / SITES AXIAL SKEL Carrington Mann MD [address] [place] [address] [place] [address] Referral ID Status Reason Start Date Expiration Date V isits Requested Visits Authorized [id number] Closed Auto-Generate d Referral 02/07/2024 03/19/2024 [address] 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 Directive(s) 01/06/2021 7:24 AM Reason for Referral Specialty Diagnoses / Procedures Referred By Contac t Referred To Contact CT IMAGING Diagnoses Encounter for screening for lung cancer Tobacco use Procedures CT LUNG SCREEN WO IVCON COMPUTED TOMOGRAPHY THORAX LW DOSE LNG CA SCR Bell Love APRN.CNP [address] [place] [address] [place] [address] Referral ID Status Reason Start Date Expiration Date V isits Requested Visits Authorized [id number] Closed Auto-Generate d Referral 02/27/2024 03/19/2024 1 1 Specialty Diagnoses / Procedures Referred By Contac t Referred To Contact Cardiology Diagnoses Abnormality of ascending aorta Procedures CONSULT TO CARDIOLOGY OFFICE/OUTPATIENT [facility] 60 MINUTES eBll Dixon APRN.POULTRY DRESSING WORKER [address] [place] [address] Referral ID Status Reason Start Date Expiration Date Visits Requested Visits Authorized [id number] Authorized PCP Requested Referral 03/07/2025 1 1 Referral ID Status Reason Start Date Expiration Date Visits Requested Visits Authorized [id number] New Request Auto-Generat ed Referral 02/17/2025 04/06/2025 1 1 Summary Purpose Family History No Family History Records Found Relationship Condition Age at Onset Recorded Date/T sherwin mother Diabetes mellitus Unknown Hypertension Unknown father Hypertension Unknown Parkinson's disease Unknown Alzheimer's disease Unknown brother Hypertension Unknown Polyp of colon Unknown grandmother Diabetes mellitus Unknown sister Malignant neoplasm of breast Unknown Chief Complaint and Reason for Visit Chief Complaint Admit Date 6 M FU September 16, 2024 11:0 0am Reason for Visit Admit Date Atherosclerotic vascular disease September 162024 11:00am Dyslipidemia September 16, 2024 11:0 0am Dyspnea on exertion September 16, 2024 11:0 0am Hypertension September 16, 2024 11:0 0am Nicotine dependence September 16, 2024 11:0 0am Thoracic aortic aneurysm September 16, 2024 11:00am Additional Source Comments Source Comments (unrecognize d section and content) In the event this informatio n is protected by the Federal Confidentiality of Alcohol and Drug Abuse Patient Records regulations: The Federal rules restrict any use of the information to criminally investigate or prosecute any alcohol or drug abuse patient.[facility] the event this information is protected by the Federal Confidentiality of Alcohol and Drug Abuse Patient Records regulations: The Federal rules restrict any use of the information to criminally investigate or prosecute any alcohol or drug abuse patient.[facility] the event this information is protected by the Federal Confidentiality of Alcohol and Drug Abuse Patient Records regulations: The Federal rules restrict any use of the information to criminally investigate or prosecute any alcohol or drug abuse patient.[facility] the event this information is protected by the Federal Confidentiality of Alcohol and Drug Abuse Patient Records regulations: The Federal rules restrict any use of the information to criminally investigate or prosecute any alcohol or drug abuse patient.[facility] the event this information is protected by the Federal Confidentiality of Alcohol and Drug Abuse Patient Records regulations: The Federal rules restrict any use of the information to criminally investigate or prosecute any alcohol or drug abuse patient.[facility] the event this information is protected by the Federal Confidentiality of Alcohol and Drug Abuse Patient Records regulations: The Federal rules restrict any use of the information to criminally investigate or prosecute any alcohol or drug abuse patient.[facility] the event this information is protected by the Federal Confidentiality of Alcohol and Drug Abuse Patient Records regulations: The Federal rules restrict any use of the information to criminally investigate or prosecute any alcohol or drug abuse patient.[facility] the event this information is protected by the Federal Confidentiality of Alcohol and Drug Abuse Patient Records regulations: The Federal rules restrict any use of the information to criminally investigate or prosecute any alcohol or drug abuse patient.[facility] the event this information is protected by the Federal Confidentiality of Alcohol and Drug Abuse Patient Records regulations: The Federal rules restrict any use of the information to criminally investigate or prosecute any alcohol or drug abuse patient.[facility] the event this information is protected by the Federal Confidentiality of Alcohol and Drug Abuse Patient Records regulations: The Federal rules restrict any use of the information to criminally investigate or prosecute any alcohol or drug abuse patient.[facility] the event this information is protected by the Federal Confidentiality of Alcohol and Drug Abuse Patient Records regulations: The Federal rules restrict any use of the information to criminally investigate or prosecute any alcohol or drug abuse patient.[facility] the event this information is protected by the Federal Confidentiality of Alcohol and Drug Abuse Patient Records regulations: The Federal rules restrict any use of the information to criminally investigate or prosecute any alcohol or drug abuse patient.[facility] the event this information is protected by the Federal Confidentiality of Alcohol and Drug Abuse Patient Records regulations: The Federal rules restrict any use of the information to criminally investigate or prosecute any alcohol or drug abuse patient.[facility] the event this information is protected by the Federal Confidentiality of Alcohol and Drug Abuse Patient Records regulations: The Federal rules restrict any use of the information to criminally investigate or prosecute any alcohol or drug abuse patient.[facility] the event this information is protected by the Federal Confidentiality of Alcohol and Drug Abuse Patient Records regulations: The Federal rules restrict any use of the information to criminally investigate or prosecute any alcohol or drug abuse patient.[facility] the event this information is protected by the Federal Confidentiality of Alcohol and Drug Abuse Patient Records regulations: The Federal rules restrict any use of the information to criminally investigate or prosecute any alcohol or drug abuse patient.[facility] the event this information is protected by the Federal Confidentiality of Alcohol and Drug Abuse Patient Records regulations: The Federal rules restrict any use of the information to criminally investigate or prosecute any alcohol or drug abuse patient.[facility] the event this information is protected by the Federal Confidentiality of Alcohol and Drug Abuse Patient Records regulations: The Federal rules restrict any use of the information to criminally investigate or prosecute any alcohol or drug abuse patient.[facility] the event this information is protected by the Federal Confidentiality of Alcohol and Drug Abuse Patient Records regulations: The Federal rules restrict any use of the information to criminally investigate or prosecute any alcohol or drug abuse patient.[facility] the event this information is protected by the Federal Confidentiality of Alcohol and Drug Abuse Patient Records regulations: The Federal rules restrict any use of the information to criminally investigate or prosecute any alcohol or drug abuse patient.[facility] the event this information is protected by the Federal Confidentiality of Alcohol and Drug Abuse Patient Records regulations: The Federal rules restrict any use of the information to criminally investigate or prosecute any alcohol or drug abuse patient.[facility]In the event this information is protected by the Federal Confidentiality of Alcohol and Drug Abuse Patient Records regulations: The Federal rules restrict any use of the information to criminally investigate or prosecute any alcohol or drug abuse patient.[facility] the event this information is protected by the Federal Confidentiality of Alcohol and Drug Abuse Patient Records regulations: The Federal rules restrict any use of the information to criminally investigate or prosecute any alcohol or drug abuse patient.[facility] the event this information is protected by the Federal Confidentiality of Alcohol and Drug Abuse Patient Records regulations: The Federal rules restrict any use of the information to criminally investigate or prosecute any alcohol or drug abuse patient.[facility] the event this information is protected by the Federal Confidentiality of Alcohol and Drug Abuse Patient Records regulations: The Federal rules restrict any use of the information to criminally investigate or prosecute any alcohol or drug abuse patient.[facility]In the event this information is protected by the Federal Confidentiality of Alcohol and Drug Abuse Patient Records regulations: The Federal rules restrict any use of the information to criminally investigate or prosecute any alcohol or drug abuse patient.[facility] the event this information is protected by the Federal Confidentiality of Alcohol and Drug Abuse Patient Records regulations: The Federal rules restrict any use of the information to criminally investigate or prosecute any alcohol or drug abuse patient.[facility]In the event this information is protected by the Federal Confidentiality of Alcohol and Drug Abuse Patient Records regulations: The Federal rules restrict any use of the information to criminally investigate or prosecute any alcohol or drug abuse patient.[facility] HospitalIn the event this information is protected by the Federal Confidentiality of Alcohol and Drug Abuse Patient Records regulations: The Federal rules restrict any use of the information to criminally investigate or prosecute any alcohol or drug abuse patient.[facility] Reason for Visit (unrecogniz ed section and content) Reason Comments Follow Up Reason Comments Results Reason Comments Physical Reason Onset Date Comments Refill Request 12/28/2022 Reason Onset Date Comments Population Health Navigation Outreach 08/31/2023 [facility] PCSA Reason Comments Rash Reason Comments Rash Over 10 days-arms, n omaira, face, chest and starting on legs now Reason Onset Date Comments Population Health Navigation Outreach 12/14/2023 [facility], AWV, Care gaps, HCC, Lj PCSA Reason Comments Follow Up Reason Comments BP Check Reason Comments Spirometry Specialty Diagnoses / Procedures Referred By Contac t Referred To [facility] Diagnoses Shortness of breath Procedures LUNG DIFFUSION CAPACITY (DLCO) DIFFUSING CAPACITY Bell Dixon APRN.POULTRY DRESSING WORKER [address] [place] [address] Respiratory Young Harris [address] [place] [id number] Referral ID Status Reason Start Date Expiration Date V isits Requested Visits Authorized [id number] Closed Auto-Generate d Referral 02/26/2024 03/19/2024 1 1 Specialty Diagnoses / Procedures Referred By Contac t Referred To Contact [facility] Diagnoses Tobacco use Persistent cough for 3 weeks or longer Procedures SPIROMETRY - BASELINE AND POST DILATOR BRNCDILAT RSPSE SPMTRY PRE&POST-BRNCDILAT Carrington Kidd MD [address] [place] [address] Respiratory Young Harris [address] [place] [address] Referral ID Status Reason Start Date Expiration Date V isits Requested Visits Authorized [id number] Closed Auto-Generate d Referral 02/07/2024 03/19/2024 1 1 Reason Comments New Patient Reason Comments Radiology CT Specialty Diagnoses / Procedures Referred By Abel t Referred To Contact CT IMAGING Diagnoses Encounter for screening for lung cancer Tobacco use Procedures CT LUNG SCREEN WO IVCON COMPUTED TOMOGRAPHY THORAX LW DOSE LNG CA EVENS Navarro- Bell Dixon, TELECOMMUNICATIONS REPAIRER.POULTRY DRESSING WORKER [address] [place] [id number] [facility] [place] [address] Referral ID Status Reason Start Date Expiration Date V isits Requested Visits Authorized [id number] Closed Auto-Generate d Referral 02/27/2024 03/19/2024 1 1 Reason Comments F/U on Bone Density Results Reason Comments Results Reason Comments Patient Question Medication Request Reason Comments Medicare Wellness Exam Care Teams (unrecognized sec tion and content) On Air Personality Relationship Specialty Start Date End Date Carrington Mann MD [address] [place] [address] PCP - General Family Practice 04/24/19 On Air Personality Relationship Specialty Start Date End Date Carrington Mann MD [address] [place] [address] PCP - General Family Medicine 04/24/19 On Air Personality Relationship Specialty Start Date End Date Carrington Mann MD [address] [place] [address] PCP - General Family Medicine 04/24/19 On Air Personality Relationship Specialty Start Date End Date Carrington Mann MD [address] [place] [address] PCP - General Family Medicine 04/24/19 On Air Personality Relationship Specialty Start Date End Date Carrington Mann MD [address] [place] [address] PCP - General Family Medicine 04/24/19 On Air Personality Relationship Specialty Start Date End Date Carrington aMnn MD [address] [place] [address] PCP - General Family Medicine 04/24/19 On Air Personality Relationship Specialty Start Date End Date Carrington Mann MD [address] [place] [address] PCP - General Family Medicine 04/24/19 On Air Personality Relationship Specialty Start Date End Date Carrington Mann MD [address] [place] [address] PCP - General Family Medicine 04/24/19 On Air Personality Relationship Specialty Start Date End Date Carrington Mann MD [address] [place] [address] PCP - General Family Medicine 04/24/19 On Air Personality Relationship Specialty Start Date End Date Carrington Mann MD [address] [place] [address] PCP - General Family Medicine 04/24/19 On Air Personality Relationship Specialty Start Date End Date Carrington Mann MD [address] [place] [address] PCP - General Family Medicine 04/24/19 On Air Personality Relationship Specialty Start Date End Date Carrington Mann MD [address] [place] [address] PCP - General Family Medicine 04/24/19 On Air Personality Relationship Specialty Start Date End Date Carrington Mann MD [address] [place] [address] PCP - General Family Medicine 04/24/19 On Air Personality Relationship Specialty Start Date End Date Carrington Mann MD [address] [place] [address] PCP - General Family Medicine 04/24/19 On Air Personality Relationship Specialty Start Date End Date Carrington Mann MD [address] [place] [address] PCP - General Family Medicine 04/24/19 On Air Personality Relationship Specialty Start Date End Date Carrington Mann MD [address] [place] [address] PCP - General Family Medicine 04/24/19 On Air Personality Relationship Specialty Start Date End Date Carrington Mann MD [address] [place] [address] PCP - General Family Medicine 04/24/19 On Air Personality Relationship Specialty Start Date End Date Carrington Mann MD [address] [place] [address] PCP - General Family Medicine 04/24/19 Podlogar, ZHANG Hsieh.POULTRY DRESSING WORKER [address] [place] [address] Library Assistant Family Medicine 02/24/24 On Air Personality Relationship Specialty Start Date End Date Carrington Mann MD [address] [place] [address] PCP - General Family Medicine 04/24/19 Podlogar, ZHANG Hsieh.POULTRY DRESSING WORKER [address] [place] [address] Replaced By [facility] 02/24/24 On Air Personality Relationship Specialty Start Date End Date Carrington Mann MD [address] [place] [address] PCP - General Family Medicine 04/24/19 Podlogar, Мария TELECOMMUNICATIONS REPAIRER.POULTRY DRESSING WORKER [address] [place] [address] Replaced By [facility] 02/24/24 On Air Personality Relationship Specialty Start Date End Date Carrington Mann MD [address] [place] [address] PCP - General Family Medicine 04/24/19 Podlogar, ZHANG Hsieh.POULTRY DRESSING WORKER [address] [place] [address] Replaced By [facility] 02/24/24 On Air Personality Relationship Specialty Start Date End Date Carrington Mann MD [address] [place] [address] PCP - General Family Medicine 04/24/19 Podlogar, Мария TELECOMMUNICATIONS REPAIRER.POULTRY DRESSING WORKER [address] [place] [address] Replaced By [facility] 02/24/24 On Air Personality Relationship Specialty Start Date End Date Carrington Mann MD [address] [place] [address] PCP - General Family Medicine 04/24/19 Podlogar, Мария, TELECOMMUNICATIONS REPAIRER.POULTRY DRESSING WORKER [address] [place] [address] Library Assistant [facility] 02/24/24 On Air Personality Relationship Specialty Start Date End Date Carrington Mann MD [address] [place] [address] PCP - General Family Medicine 04/24/19 Podlogar, Мария, TELECOMMUNICATIONS REPAIRER.POULTRY DRESSING WORKER [address] [place] [address] Library Assistant Family Medicine 02/24/24 On Air Personality Relationship Specialty Start Date End Date Carrington Mann MD [address] [place] [address] PCP - General Family Medicine 04/24/19 Podlogar, Мария, TELECOMMUNICATIONS REPAIRER.POULTRY DRESSING WORKER [address] [place] [address] Library Assistant Family Medicine 02/24/24 Nate Cavazos MD [address] [address] Cardiology 03/12/24 On Air Personality Relationship Specialty Start Date End Date Carrington Mann MD [address] [place] [address] PCP - General Family Medicine 04/24/19 Podlogar, Мария, TELECOMMUNICATIONS REPAIRER.POULTRY DRESSING WORKER [address] [place] [address] Library Assistant Family Medicine 02/24/24 Nate Cavazos MD [address] [place] [address] Cardiology 03/12/24 On Air Personality Relationship Specialty Start Date End Date Carrington Mann MD [address] [place] [address] PCP - General Family Medicine 04/24/19 PodlogarМария APRN.POULTRY DRESSING WORKER [address] [place] [address] Library Assistant Family Medicine 02/24/24 Nate Cavazos MD [address], [place] [address] Cardiology 03/12/24 On Air Personality Relationship Specialty Start Date End Date Carrington Mann MD [address] [place], [place] [address] PCP - General Family Medicine 04/24/19 PodlogarМария APRN.POULTRY DRESSING WORKER [address] [place] [address] Library Assistant Family Medicine 02/24/24 Nate Cavazos MD [address] [place] [address] Cardiology 03/12/24 Olga Mijares APRN.POULTRY DRESSING WORKER [address] [place] [address] Library Assistant Family Medicine 06/10/24 Team Status: Active Member Role/Relationship Status Dates Dr. Tres Mann MD Primary Care Provider Acti ve Team Status: Inactive Member Role/Relationship Status Dates Dr. Tres Mann MD Primary Care Provider Acti ve Start: September 16, 2024 End: September 16, 2024 Dr. Tres Mann MD Referring Provider Active Start: September 16, 2024 End: September 16, 2024 Geri Carter NP, SYSTEM DESIGNER-C Attending Provider Active Start: September 16, 2024 End: September 16, 2024 INFORMATION SOURCE (unrecogn ized section and content) DATE CREATED AUTHOR 07/17/2024 [facility] DATE CREATED AUTHOR AUTHOR'S NILAY ATERICK 09/16/2024 [facility] Goals (unrecognized section and content) Goals may be documented in a n alternate section FOR RECORDS PERTAINING TO PATIENTS WHO ARE OR HAVE BEEN ENROLLED IN A CHEMICAL DEPENDENCY/SUBSTANCEABUSE PROGRAM, SOME INFORMATION MAY BE OMITTED. This clinical summary was aggregated from multiple sources. Caution should be exercised in using it in the provision of clinical care. This summary normalizes information from multiple sources, and as a consequence, information in this document may materially change the coding, format and clinical context of patient data. In addition, data may be omitted in some cases. CLINICAL DECISIONS SHOULD BE BASED ON THE PRIMARY CLINICAL RECORDS. [employer] provides no warranty or guarantee of the accuracy or completeness of information in this document.
== END | disposition home or self-care (01) ==
LOC: CT 13:20
PROVIDERS: PCP Family Medicine; Referring Provider Nurse Practitioner Family; Visit Provider Nurse Practitioner Family
DX: I71.20 Thoracic aortic aneurysm, without rupture, unspecified (principal); I10 Essential (primary) hypertension; E66.811 Obesity, class 1; E78.2 Mixed hyperlipidemia; F17.200 Nicotine dependence, unspecified, uncomplicated
CPT/HCPCS: 71275; Q9967